=== PATIENT | female | born 1965 | race Caucasian/White ===

== ENCOUNTER 2021-06-27 20:25 | Inpatient (IN) | payer SELFPAY ==
--- OUTSIDE RECORDS SUMMARY | 2021-06-27 20:34 | XMS REPORT | Continuity of Care Document ---
:1965 Author Organization [facility] t Address [address] [place] [address] [address]. [address] [place] [address] Care Team Providers Name Role Phone Pcp, Does Not Have A Primary Care Physician Jaspal PATTEN Attending Clinician Doctor Unassigned, Name Attending Clinician Unavailable JASPAL Attending Clinician Unavailable YOEL Attending Clinician Unavailable Faculty, Surg Attending Clinician Unavailable Javier PTATEN, Aicha Attending Clinician Cynthia GUZMAN Attending Clinician Unavailable Wade PRADO, E Attending Clinician Parth WOOD Attending Clinician Stefan Attending Clinician Huseyin [place] B Attending Clinician Weston PATTEN Attending Clinician Roselyn Estrada MD, B Attending Clinician Aiyana PATTEN Attending Clinician Mack PATTEN, K.H. Attending Clinician Roselyn Estrada MD, B Admitting Clinician Payers Payer Name Policy Type Policy Number Effective Date Expiration Date S ource Advance Directives Directive Decision Effective Termination Comments Source Date Date Healthcare Agents on N/A [facility] Agent Medical RelationshipCommunicationQuentin Branch [facility] Care [phone] (Mobile) [email or web address] [facility] Problems Condition Condition Condition Status Onset Resolution Last Treating Co mments Source Name Details Category Date Date Treatment Clinician Date Diabetic Diabetic Disease Active Unive rs foot ulcer foot ulcer 2-24 it y of associated associated 00:00: [place] with with 00 Medical diabetes diabetes Branch mellitus mellitus due to due to underlying underlying condition, condition, unspecifie unspecifie d d laterality laterality , , unspecifie unspecifie d part of d part of foot, foot, unspecifie unspecifie d ulcer d ulcer stage stage Diabetic Diabetic Disease Active Overview: Un alondra ulcer of ulcer of 2-24 Formatt[place] ity of toe of toe of 00:00: g of this [place] right foot right foot 00 note Me dical associated associated might be Branch with type with 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 from request for surgery [id number] DNR (do DNR (do Disease Active Univers not not 2-24 ity of resus[place] e) e) 00 Medical discussion discussion Br anch Chronic Chronic Disease Active Univers neck pain neck pain 1-30 ity of 00:00: [place] 00 Medical Branch CAD CAD Disease Active Univers (coronary (coronary 1-30 ity of artery artery 00:00: [place] disease) disease) 00 Medica l Branch History of History of Disease Active 2017-04 U nivers CVA CVA 0-07 ity of (cerebrova (cerebrova 00[place]00: [place] scular scular 00 Medical accident) accident) Bran ch Left-sided Left-sided Disease Active 2017-04 U nivers weakness weakness 0-07 ity of 00:00: [place] 00 Medical Branch Gallbladde Gallbladde Disease Active 2017-04 Overview : Univers r polyp r polyp 0-07 Formattin ity o f 00:00: g of this [place] 00 note Medical might be Branch different from the original. multiple History of History of Disease Active U nivers acute acute 9-21 ity of myocardial myocardial 00:[place] infarction infarction 00 Me dical Branch Tobacco Tobacco Disease Active Univers use use 9-21 ity of 00:00: [place] 00 Medical Branch DM DM Disease Active Univers (diabetes (diabetes ity of mellitus) mellitus) [facility] [place] [facility] Allergies, Adverse Reactions, Alerts Allergy Allergy Status Severity Reaction(s) Onset Inactive Treating Comm ents Source Name Type Date Date Clinician NO KNOWN Drug Active Univers ALLERGIE Class ity of S [facility] Social History Social Habit Start Date Stop Date Quantity Comments Source History of tobacco Cigarette Smoker [facility] Exposure to Not sure [facility] SARS-CoV-2 (event) [facility] Alcohol intake 2020-12-13 2020-12-13 Current University 00:00:00 00:00:00 non-drinker of [place] [facility] alcohol Branch (finding) Tobacco use and 2020-11-15 2020-11-15 Never used Universit y of exposure 00:00:00 00:00:00 [facility] Cigarettes smoked 2020-11-15 2020-11-15 Univers ity of current (pack per 00:00:00 00:00:00 [facility] ) - Reported Branch Tobacco Comment 2020-06-22 2020-06-22 quit couple days Uni versity of 00:00:00 00:00:00 ago [facility] Ass[birth year] At [birth year] [facility] Smoking Status Start Date Stop Date Source Current every day 2020-11-15 00:00:00 [facility] smoker [facility] Former smoker 2020-10-24 00:00:00 2020-10-24 [facility] [place] [facility] Medications Ordered Filled Start Stop Current Ordering Indication Dosage Frequency Signature Comments Components Source Medication Medication Date Date Medication? Clinician (SIG) Name Name insulin NPH Yes 30U inject 30 U nivers hum/reg 7-20 Units ity of insulin hm 21:16: [place] the [place] (HUMULIN 27 skin. Medical 70/30 U-100 Branch INSULIN SC) insulin NPH Yes 30U inject 30 U nivers hum/reg 7-20 Units ity of insulin hm 21:16: [place] the [place] (HUMULIN 27 skin. Medical 70/30 U-100 Branch INSULIN SC) insulin NPH Yes 30U inject 30 U nivers hum/reg 7-20 Units ity of insulin hm 21:16: under the [place] (HUMULIN 27 skin. Medical 70/30 U-100 Branch INSULIN SC) insulin NPH 0 Yes 30U inject 30 U nivers hum/reg 7-20 Units ity of insulin hm 21:16: under the [place] (HUMULIN 27 skin. Medical 70/30 U-100 Branch INSULIN SC) insulin NPH 0 Yes 30U inject 30 U nivers hum/reg 7-20 Units ity of insulin hm 21:16: under the [place] (HUMULIN 27 skin. Medical 70/30 U-100 Branch INSULIN SC) insulin NPH 0 Yes 30U inject 30 U nivers hum/reg 7-20 Units ity of insulin hm 16:16: under the [place] (HUMULIN 27 skin. Medical 70/30 U-100 Branch INSULIN SC) insulin NPH 0 Yes 30U inject 30 U nivers hum/reg 7-20 Units ity of insulin hm 16:16: [place] the [place] (HUMULIN 27 skin. Medical 70/30 U-100 Branch INSULIN SC) doxycycline 2020- No [id number] 100mg Take 1 Univers hyclate 100 5-25 06-05 capsule by i ty of mg capsule 00:00: 04:59 mouth [place] 00 :00 every 12 Medical (twelve) Branch hours for 10 days. doxycycline 2020- No [id number] 100mg Take 1 Univers hyclate 100 5-25 06-05 capsule by i ty of mg capsule 00:00: 04:59 mouth [place] 00 :00 every 12 Medical (twelve) Branch hours for 10 days. doxycycline 2020- No [id number] 100mg Take 1 Univers hyclate 100 5-25 06-05 capsule by i ty of mg capsule 00:00: 04:59 mouth [place] 00 :00 every 12 Medical (twelve) Branch hours for 10 days. doxycycline 2020- No [id number] 100mg Take 1 Univers hyclate 100 5-04 05-12 capsule by i ty of mg capsule 00:00: 04:59 mouth [place] 00 :00 every 12 Medical (twelve) Branch hours for 7 days. doxycycline 2020- No [id number] 100mg Take 1 Univers hyclate 100 5-04 05-12 capsule by i ty of mg capsule 00:00: 04:59 mouth [place] 00 :00 every 12 Medical (twelve) Branch hours for 7 days. doxycycline 2020-0 2020- No [id number] 100mg Take 1 Univers hyclate 100 08-30-12 capsule by i ty of mg capsule 00:00: 04:59 mouth [place] 00 :00 every 12 Medical (twelve) Branch hours for 7 days. aspirin 2020-0 Yes 81mg Take 81 mg Univ ers (ADULT LOW 4-20 by mouth ity o f DOSE 14:00: daily. [place] ASPIRIN) 81 43 Medical mg EC Branch tablet aspirin 2020-0 Yes 81mg Take 81 mg Univ ers (ADULT LOW 4-20 by mouth ity o f DOSE 14:00: daily. [place] ASPIRIN) 81 43 Medical mg EC Branch tablet aspirin 2020-0 Yes 81mg Take 81 mg Univ ers (ADULT LOW 4-20 by mouth ity o f DOSE 14:00: daily. [place] ASPIRIN) 81 43 Medical mg EC Branch tablet aspirin 2020-0 Yes 81mg Take 81 mg Univ ers (ADULT LOW 4-20 by mouth ity o f DOSE 14:00: daily. [place] ASPIRIN) 81 43 Medical mg EC Branch tablet aspirin 2020-0 Yes 81mg Take 81 mg Univ ers (ADULT LOW 4-20 by mouth ity o f DOSE 14:00: daily. [place] ASPIRIN) 81 43 Medical mg EC Branch tablet aspirin 2020-0 Yes 81mg Take 81 mg Univ ers (ADULT LOW 4-20 by mouth ity o f DOSE 14:00: daily. [place] ASPIRIN) 81 43 Medical mg EC Branch tablet aspirin 2020-0 Yes 81mg Take 81 mg Univ ers (ADULT LOW 4-20 by mouth ity o f DOSE 14:00: daily. [place] ASPIRIN) 81 43 Medical mg EC Branch tablet aspirin 2020-0 Yes 81mg Take 81 mg Univ ers (ADULT LOW 4-20 by mouth ity o f DOSE 14:00: daily. [place] ASPIRIN) 81 43 Medical mg EC Branch tablet aspirin 2020-0 Yes 81mg Take 81 mg Univ ers (ADULT LOW 4-20 by mouth ity o f DOSE 14:00: daily. [place] ASPIRIN) 81 43 Medical mg EC Branch tablet aspirin 2020-0 Yes 81mg Take 81 mg Univ ers (ADULT LOW 4-20 by mouth ity o f DOSE 14:00: daily. [place] ASPIRIN) 81 43 Medical mg EC Branch tablet aspirin 2021-0 Yes 81mg Take 81 mg Univ ers (ADULT LOW 4-20 by mouth ity o f DOSE 14:00: daily. [place] ASPIRIN) 81 43 Medical mg EC Branch tablet aspirin 2021-0 Yes 81mg Take 81 mg Univ ers (ADULT LOW 4-20 by mouth ity o f DOSE 14:00: daily. [place] ASPIRIN) 81 43 Medical mg EC Branch tablet aspirin 2021-0 Yes 81mg Take 81 mg Univ ers (ADULT LOW 4-20 by mouth ity o f DOSE 14:00: daily. [place] ASPIRIN) 81 43 Medical mg EC Branch tablet aspirin 2021-0 Yes 81mg Take 81 mg Univ ers (ADULT LOW 4-20 by mouth ity o f DOSE 14:00: daily. [place] ASPIRIN) 81 43 Medical mg EC Branch tablet aspirin 2021-0 Yes 81mg Take 81 mg Univ ers (ADULT LOW 4-20 by mouth ity o f DOSE 14:00: daily. [place] ASPIRIN) 81 43 Medical mg EC Branch tablet aspirin 2021-0 Yes 81mg Take 81 mg Univ ers (ADULT LOW 4-20 by mouth ity o f DOSE 14:00: daily. [place] ASPIRIN) 81 43 Medical mg EC Branch tablet aspirin 2020-0 Yes 81mg Take 81 mg Univ ers (ADULT LOW 4-20 by mouth ity o f DOSE 14:00: daily. [place] ASPIRIN) 81 43 Medical mg EC Branch tablet aspirin 1-0 Yes 81mg Take 81 mg Univ ers (ADULT LOW 4-20 by mouth ity o f DOSE 09:00: daily. [place] ASPIRIN) 81 43 Medical mg EC Branch tablet aspirin 1-0 Yes 81mg Take 81 mg Univ ers (ADULT LOW 4-20 by mouth ity o f DOSE 09:00: daily. [place] ASPIRIN) 81 43 Medical mg EC Branch tablet aspirin 2021-0 Yes 81mg Take 81 mg Univ ers (ADULT LOW 3-07 by mouth ity o f DOSE 04:18: daily. [place] ASPIRIN) 81 03 Medical mg EC Branch tablet aspirin 2021-0 Yes 81mg Take 81 mg Univ ers (ADULT LOW 3-07 by mouth ity o f DOSE 04:18: daily. [place] ASPIRIN) 81 03 Medical mg EC Branch tablet aspirin 2021-0 Yes 81mg Take 81 mg Univ ers (ADULT LOW 3-07 by mouth ity o f DOSE 04:18: daily. [place] ASPIRIN) 81 03 Medical mg EC Branch tablet aspirin 2021-0 Yes 81mg Take 81 mg Univ ers (ADULT LOW 3-07 by mouth ity o f DOSE 04:18: daily. [place] ASPIRIN) 81 03 Medical mg EC Branch tablet aspirin 0 Yes 81mg Take 81 mg Univ ers (ADULT LOW 3-07 by mouth ity o f DOSE 04:18: daily. [place] ASPIRIN) 81 03 Medical mg EC Branch tablet aspirin Yes 81mg Take 81 mg Univ ers (ADULT LOW 3-07 by mouth ity o f DOSE 04:18: daily. [place] ASPIRIN) 81 03 Medical mg EC Branch tablet aspirin Yes 81mg Take 81 mg Univ ers (ADULT LOW 3-07 by mouth ity o f DOSE 04:18: daily. [place] ASPIRIN) 81 03 Medical mg EC Branch tablet aspirin Yes 81mg Take 81 mg Univ ers (ADULT LOW 3-07 by mouth ity o f DOSE 04:18: daily. [place] ASPIRIN) 81 03 Medical mg EC Branch tablet aspirin Yes 81mg Take 81 mg Univ ers (ADULT LOW 3-07 by mouth ity o f DOSE 04:18: daily. [place] ASPIRIN) 81 03 Medical mg EC Branch tablet insulin NPH 2020- No inject Uni vers hum/reg 07-02-06 under the ity of insulin hm 22:55: 00:00 skin. 40 [place] (INSULIN 04 :00 units AM Medical 70/30 SC) Branch aspirin Yes 81mg Take 81 mg Univ ers (ADULT LOW 3-06 by mouth ity o f DOSE 15:53: daily. [place] ASPIRIN) 81 54 Medical mg EC Branch tablet insulin Yes 10U 10 Units, Unive rs glargine 07-02 Subcutaneo ity o f (LANTUS 02:00: us, BID, [place] U-100) 00 First dose Medical injection (after Branch 10 Units last modificati on) on Sat07/01/20 at 1999, Until Discontinu ed, Routine insulin 2020- No [id number] 5U inject 5 Univers regular 07-02-05 9109 Units ity of human 100 00:00: 04:59 under the [place] unit/mL 00 :00 skin 2 Medical injection (two) Branch times daily before breakfast and dinner for 90 days. insulin NPH 2020- No [id number] 12U inject 12 Univers 100 unit/mL 07-02- 9109 Units ity of injection 00:00: 04:59 under the [place] 00 :00 skin daily Medical before Branch breakfast for 90 days. insulin NPH 2020- No [id number] 10U inject 10 Univers 100 unit/mL 07-02- 9109 Units ity of injection 00:00: 04:59 under the [place] 00 :00 skin Medical before Branch evening meal for 90 days. insulin 2020- No [id number] 5U inject 5 Univers regular 07-02- 9109 Units ity of human 100 00:00: 04:59 under the [place] unit/mL 00 :00 skin 2 Medical injection (two) Branch times daily before breakfast and dinner for 90 days. insulin NPH 2020- No [id number] 12U inject 12 Univers 100 unit/mL 07-02- 9109 Units ity of injection 00:00: 04:59 under the [place] 00 :00 skin daily Medical before Branch breakfast for 90 days. insulin NPH 2020- No [id number] 10U inject 10 Univers 100 unit/mL 07-02 9109 Units ity of injection 00:00: 04:59 under the [place] 00 :00 skin Medical before Branch evening meal for 90 days. insulin 2020- No [id number] 5U inject 5 Univers regular 07-02- 9109 Units ity of human 100 00:00: 04:59 under the [place] unit/mL 00 :00 skin 2 Medical injection (two) Branch times daily before breakfast and dinner for 90 days. insulin NPH 2020- No [id number] 12U inject 12 Univers 100 unit/mL 07-02- 9109 Units ity of injection 00:00: 04:59 under the [place] 00 :00 skin daily Medical before Branch breakfast for 90 days. insulin NPH 2020- No [id number] 10U inject 10 Univers 100 unit/mL 07-02- 9109 Units ity of injection 00:00: 04:59 under the [place] 00 :00 skin Medical before Branch evening meal for 90 days. insulin 2020- No [id number] 5U inject 5 Univers regular 07-02- 9109 Units ity of human 100 00:00: 04:59 under the [place] unit/mL 00 :00 skin 2 Medical injection (two) Branch times daily before breakfast and dinner for 90 days. insulin NPH 2020- No [id number] 12U inject 12 Univers 100 unit/mL 07-02- 9109 Units ity of injection 00:00: 04:59 under the [place] 00 :00 skin daily Medical before Branch breakfast for 90 days. insulin NPH 2020- No [id number] 10U inject 10 Univers 100 unit/mL 07-02- 9109 Units ity of injection 00:00: 04:59 under the [place] 00 :00 skin Medical before Branch evening meal for 90 days. insulin 2020- No [id number] 5U inject 5 Univers regular 07-02- 9109 Units ity of human 100 00:00: 04:59 under the [place] unit/mL 00 :00 skin 2 Medical injection (two) Branch times daily before breakfast and dinner for 90 days. insulin NPH 2020- No [id number] 12U inject 12 Univers 100 unit/mL 07-02- 9109 Units ity of injection 00:00: 04:59 under the [place] 00 :00 skin daily Medical before Branch breakfast for 90 days. insulin NPH 2020- No [id number] 10U inject 10 Univers 100 unit/mL 07-02 9109 Units ity of injection 00:00: 04:59 under the [place] 00 :00 skin Medical before Branch evening meal for 90 days. insulin 2020- No [id number] 5U inject 5 Univers regular 07-02- 9109 Units ity of human 100 00:00: 04:59 under the [place] unit/mL 00 :00 skin 2 Medical injection (two) Branch times daily before breakfast and dinner for 90 days. insulin NPH 2020- No [id number] 12U inject 12 Univers 100 unit/mL 07-02- 9109 Units ity of injection 00:00: 04:59 under the [place] 00 :00 skin daily Medical before Branch breakfast for 90 days. insulin NPH 2020- No [id number] 10U inject 10 Univers 100 unit/mL 07-02- 9109 Units ity of injection 00:00: 04:59 under the [place] 00 :00 skin Medical before Branch evening meal for 90 days. insulin 2020- No [id number] 5U inject 5 Univers regular 07-02 9109 Units ity of human 100 00:00: 04:59 under the [place] unit/mL 00 :00 skin 2 Medical injection (two) Branch times daily before breakfast and dinner for 90 days. insulin 2020- No [id number] 5U inject 5 Univers regular 07-02- 9109 Units ity of human 100 00:00: 04:59 under the [place] unit/mL 00 :00 skin 2 Medical injection (two) Branch times daily before breakfast and dinner for 90 days. insulin NPH 2020- No [id number] 12U inject 12 Univers 100 unit/mL 07-02 9109 Units ity of injection 00:00: 04:59 under the [place] 00 :00 skin daily Medical before Branch breakfast for 90 days. insulin NPH 2020- No [id number] 10U inject 10 Univers 100 unit/mL 07-02 9109 Units ity of injection 00:00: 04:59 under the [place] 00 :00 skin Medical before Branch evening meal for 90 days. insulin 2020- No [id number] 5U inject 5 Univers regular 07-02 9109 Units ity of human 100 00:00: 04:59 under the [place] unit/mL 00 :00 skin 2 Medical injection (two) Branch times daily before breakfast and dinner for 90 days. insulin NPH 2020- No [id number] 12U inject 12 Univers 100 unit/mL 07-02- 9109 Units ity of injection 00:00: 04:59 under the [place] 00 :00 skin daily Medical before Branch breakfast for 90 days. insulin NPH 2020- No [id number] 10U inject 10 Univers 100 unit/mL 07-02 9109 Units ity of injection 00:00: 04:59 under the [place] 00 :00 skin Medical before Branch evening meal for 90 days. insulin No [id number] 5U inject 5 Univers regular 07-02 9109 Units ity of human 100 00:00: 04:59 under the [place] unit/mL 00 :00 skin 2 Medical injection (two) Branch times daily before breakfast and dinner for 90 days. insulin NPH 2020- No [id number] 12U inject 12 Univers 100 unit/mL 07-02 9109 Units ity of injection 00:00: 04:59 under the [place] 00 :00 skin daily Medical before Branch breakfast for 90 days. insulin NPH 2020- No [id number] 10U inject 10 Univers 100 unit/mL 07-02 9109 Units ity of injection 00:00: 04:59 under the [place] 00 :00 skin Medical before Branch evening meal for 90 days. insulin 2020- No [id number] 5U inject 5 Univers regular 07-02 9109 Units ity of human 100 00:00: 04:59 under the [place] unit/mL 00 :00 skin 2 Medical injection (two) Branch times daily before breakfast and dinner for 90 days. insulin NPH No [id number] 12U inject 12 Univers 100 unit/mL 07-02 9109 Units ity of injection 00:00: 04:59 under the [place] 00 :00 skin daily Medical before Branch breakfast for 90 days. insulin NPH No [id number] 10U inject 10 Univers 100 unit/mL 07-02 9109 Units ity of injection 00:00: 04:59 under the [place] 00 :00 skin Medical before Branch evening meal for 90 days. insulin No [id number] 5U inject 5 Univers regular 07-02 9109 Units ity of human 100 00:00: 04:59 under the [place] unit/mL 00 :00 skin 2 Medical injection (two) Branch times daily before breakfast and dinner for 90 days. insulin NPH No [id number] 12U inject 12 Univers 100 unit/mL 07-02 9109 Units ity of injection 00:00: 04:59 under the [place] 00 :00 skin daily Medical before Branch breakfast for 90 days. insulin NPH No [id number] 10U inject 10 Univers 100 unit/mL 07-02 9109 Units ity of injection 00:00: 04:59 under the [place] 00 :00 skin Medical before Branch evening meal for 90 days. insulin 2020- No [id number] 5U inject 5 Univers regular 07-02 9109 Units ity of human 100 00:00: 04:59 under the [place] unit/mL 00 :00 skin 2 Medical injection (two) Branch times daily before breakfast and dinner for 90 days. insulin NPH 2020- No [id number] 12U inject 12 Univers 100 unit/mL 07-02 9109 Units ity of injection 00:00: 04:59 under the [place] 00 :00 skin daily Medical before Branch breakfast for 90 days. insulin NPH 2020- No [id number] 10U inject 10 Univers 100 unit/mL 07-02 9109 Units ity of injection 00:00: 04:59 under the [place] 00 :00 skin Medical before Branch evening meal for 90 days. insulin 2020- No [id number] 5U inject 5 Univers regular 07-02 9109 Units ity of human 100 00:00: 04:59 under the [place] unit/mL 00 :00 skin 2 Medical injection (two) Branch times daily before breakfast and dinner for 90 days. insulin NPH No [id number] 12U inject 12 Univers 100 unit/mL 07-02 9109 Units ity of injection 00:00: 04:59 under the [place] 00 :00 skin daily Medical before Branch breakfast for 90 days. insulin NPH No [id number] 10U inject 10 Univers 100 unit/mL 07-02 9109 Units ity of injection 00:00: 04:59 under the [place] 00 :00 skin Medical before Branch evening meal for 90 days. insulin 2020- No [id number] 5U inject 5 Univers regular 07-02- 9109 Units ity of human 100 00:00: 04:59 under the [place] unit/mL 00 :00 skin 2 Medical injection (two) Branch times daily before breakfast and dinner for 90 days. insulin NPH 2020- No [id number] 12U inject 12 Univers 100 unit/mL 07-02- 9109 Units ity of injection 00:00: 04:59 under the [place] 00 :00 skin daily Medical before Branch breakfast for 90 days. insulin NPH 2020- No [id number] 10U inject 10 Univers 100 unit/mL 07-02- 9109 Units ity of injection 00:00: 04:59 under the [place] 00 :00 skin Medical before Branch evening meal for 90 days. insulin 2020- No [id number] 5U inject 5 Univers regular 07-02- 9109 Units ity of human 100 00:00: 04:59 under the [place] unit/mL 00 :00 skin 2 Medical injection (two) Branch times daily before breakfast and dinner for 90 days. insulin NPH 2020- No [id number] 12U inject 12 Univers 100 unit/mL 07-02- 9109 Units ity of injection 00:00: 04:59 under the [place] 00 :00 skin daily Medical before Branch breakfast for 90 days. insulin NPH 2020- No [id number] 10U inject 10 Univers 100 unit/mL 07-02- 9109 Units ity of injection 00:00: 04:59 under the [place] 00 :00 skin Medical before Branch evening meal for 90 days. insulin 2020- No [id number] 5U inject 5 Univers regular 07-02- 9109 Units ity of human 100 00:00: 04:59 under the [place] unit/mL 00 :00 skin 2 Medical injection (two) Branch times daily before breakfast and dinner for 90 days. insulin NPH 2020- No [id number] 12U inject 12 Univers 100 unit/mL 07-02- 9109 Units ity of injection 00:00: 04:59 under the [place] 00 :00 skin daily Medical before Branch breakfast for 90 days. insulin NPH 2020- No [id number] 10U inject 10 Univers 100 unit/mL 07-02 9109 Units ity of injection 00:00: 04:59 under the [place] 00 :00 skin Medical before Branch evening meal for 90 days. insulin 2020- No [id number] 5U inject 5 Univers regular 07-02 9109 Units ity of human 100 00:00: 04:59 under the [place] unit/mL 00 :00 skin 2 Medical injection (two) Branch times daily before breakfast and dinner for 90 days. insulin NPH 2020- No [id number] 12U inject 12 Univers 100 unit/mL 07-02 9109 Units ity of injection 00:00: 04:59 under the [place] 00 :00 skin daily Medical before Branch breakfast for 90 days. insulin NPH 2020- No [id number] 10U inject 10 Univers 100 unit/mL 07-02 9109 Units ity of injection 00:00: 04:59 under the [place] 00 :00 skin Medical before Branch evening meal for 90 days. insulin 2020- No [id number] 5U inject 5 Univers regular 07-02 9109 Units ity of human 100 00:00: 04:59 under the [place] unit/mL 00 :00 skin 2 Medical injection (two) Branch times daily before breakfast and dinner for 90 days. insulin NPH 2020- No [id number] 12U inject 12 Univers 100 unit/mL 07-02 9109 Units ity of injection 00:00: 04:59 under the [place] 00 :00 skin daily Medical before Branch breakfast for 90 days. insulin NPH 2020- No [id number] 10U inject 10 Univers 100 unit/mL 07-02 9109 Units ity of injection 00:00: 04:59 under the [place] 00 :00 skin Medical before Branch evening meal for 90 days. sennosides- 2020- No [id number] 1{tbl} Take 1 Univers docusate 07-02 9109 tablet by ity o f sodium 00:00: 04:59 mouth [place] 8.6-50 mg 00 :00 daily for Medic al per tablet 14 days. Branc h Polyethylen 2020- No [id number] 17g Take 1 Univers e Glycol 07-02 9109 Packet by ity o f 3350 17 00:00: 04:59 mouth [place] gram powder 00 :00 daily for Med ical 14 days. Branch cyclobenzap 2020- No [id number] 5mg Take 1 Univers rine 5 mg 07-02 9109 tablet by ity of tablet 00:00: 04:59 mouth 3 [place] 00 :00 (three) Medical times Branch daily for 14 days. gabapentin 2020- No [id number] 100mg Take 1 Univers 100 mg 07-02 9109 capsule by ity of capsule 00:00: 04:59 mouth 3 [place] 00 :00 (three) Medical times Branch daily for 14 days. sennosides- 2020- No [id number] 1{tbl} Take 1 Univers docusate 07-02 9109 tablet by ity o f sodium 00:00: 04:59 mouth [place] 8.6-50 mg 00 :00 daily for Medic al per tablet 14 days. [facility] Polyethylen 2020- No [id number] 17g Take 1 Univers e Glycol 07-02 9109 Packet by ity o f 3350 17 00:00: 04:59 mouth [place] gram powder 00 :00 daily for Med ical 14 days. Branch cyclobenzap 2020- No [id number] 5mg Take 1 Univers rine 5 mg 07-02 9109 tablet by ity of tablet 00:00: 04:59 mouth 3 [place] 00 :00 (three) Medical times Branch daily for 14 days. gabapentin 2020- No [id number] 100mg Take 1 [facility] 100 mg 07-02 9109 capsule by ity of capsule 00:00: 04:59 mouth 3 [place] 00 :00 (three) Medical times Branch daily for 14 days. sennosides- 2020- No [id number] 1{tbl} Take 1 [facility] docusate 07-02 9109 tablet by ity o f sodium 00:00: 04:59 mouth [place] 8.6-50 mg 00 :00 daily for Medic al per tablet 14 days. Branc h Polyethylen 2020- No [id number] 17g Take 1 Univers e Glycol 07-02 9109 Packet by ity o f 3350 17 00:00: 04:59 mouth [place] gram powder 00 :00 daily for Med ical 14 days. Branch cyclobenzap 2020- No [id number] 5mg Take 1 Univers rine 5 mg 07-02 9109 tablet by ity of tablet 00:00: 04:59 mouth 3 [place] 00 :00 (three) Medical times Branch daily for 14 days. gabapentin 2020- No [id number] 100mg Take 1 [facility] 100 mg 07-02 9109 capsule by ity of capsule 00:00: 04:59 mouth 3 [place] 00 :00 (three) Medical times Branch daily for 14 days. sennosides- 2020- No [id number] 1{tbl} Take 1 [facility] docusate 07-02 9109 tablet by ity o f sodium 00:00: 04:59 mouth [place] 8.6-50 mg 00 :00 daily for Medic al per tablet 14 days. [facility] h Polyethylen 2020- No [id number] 17g Take 1 Univers e Glycol 07-02 9109 Packet by ity o f 3350 17 00:00: 04:59 mouth [place] gram powder 00 :00 daily for Med ical 14 days. Branch cyclobenzap 2020- No [id number] 5mg Take 1 Univers rine 5 mg 07-02 9109 tablet by ity of tablet 00:00: 04:59 mouth 3 [place] 00 :00 (three) Medical times Branch daily for 14 days. gabapentin 2020- No [id number] 100mg Take 1 [facility] 100 mg 07-02 9109 capsule by ity of capsule 00:00: 04:59 mouth 3 [place] 00 :00 (three) Medical times Branch daily for 14 days. sennosides- 2020- No [id number] 1{tbl} Take 1 [facility] docusate 07-02 9109 tablet by ity o f sodium 00:00: 04:59 mouth [place] 8.6-50 mg 00 :00 daily for Medic al per tablet 14 days. Branc h Polyethylen 2020- No [id number] 17g Take 1 Univers e Glycol 07-02 9109 Packet by ity o f 3350 17 00:00: 04:59 mouth [place] gram powder 00 :00 daily for Med ical 14 days. Branch cyclobenzap 2020- No [id number] 5mg Take 1 [facility] rine 5 mg 07-02 9109 tablet by ity of tablet 00:00: 04:59 mouth 3 [place] 00 :00 (three) Medical times Branch daily for 14 days. gabapentin 2020- No [id number] 100mg Take 1 [facility] 100 mg 07-02 9109 capsule by ity of capsule 00:00: 04:59 mouth 3 [place] 00 :00 (three) Medical times Branch daily for 14 days. sennosides- 2020- No [id number] 1{tbl} Take 1 [facility] docusate 07-02 9109 tablet by ity o f sodium 00:00: 04:59 mouth [place] 8.6-50 mg 00 :00 daily for Medic al per tablet 14 days. [facility] h Polyethylen 2020- No [id number] 17g Take 1 Univers e Glycol 07-02 9109 Packet by ity o f 3350 17 00:00: 04:59 mouth [place] gram powder 00 :00 daily for Med ical 14 days. Branch cyclobenzap 2020- No [id number] 5mg Take 1 [facility] rine 5 mg 07-02 9109 tablet by ity of tablet 00:00: 04:59 mouth 3 [place] 00 :00 (three) Medical times Branch daily for 14 days. gabapentin 2020- No [id number] 100mg Take 1 [facility] 100 mg 07-02 9109 capsule by ity of capsule 00:00: 04:59 mouth 3 [place] 00 :00 (three) Medical times Branch daily for 14 days. sennosides- 2020- No [id number] 1{tbl} Take 1 [facility] docusate 07-02 9109 tablet by ity o f sodium 00:00: 04:59 mouth [place] 8.6-50 mg 00 :00 daily for Medic al per tablet 14 days. Branc h Polyethylen 2020- No [id number] 17g Take 1 Univers e Glycol 07-02 9109 Packet by ity o f 3350 17 00:00: 04:59 mouth [place] gram powder 00 :00 daily for Med ical 14 days. Branch cyclobenzap 2020- No [id number] 5mg Take 1 Univers rine 5 mg 07-02 9109 tablet by ity of tablet 00:00: 04:59 mouth 3 [place] 00 :00 (three) Medical times Branch daily for 14 days. gabapentin 2020- No [id number] 100mg Take 1 [facility] 100 mg 07-0209 capsule by ity of capsule 00:00: 04:59 mouth 3 [place] 00 :00 (three) Medical times Branch daily for 14 days. HYDROcodone No 4647 1{tbl} Take 1 U nivers -acetaminop 07-02-14 tablet by it y of hen (ShopEx) 00:00: 05:59 mouth [place] 5-325 mg 00 :00 every 6 Medical tablet (six) Branch hours as needed for Pain (scale 7-10) for up to 7 days. Indication s: acute pain HYDROcodone No 4647 1{tbl} Take 1 U nivers -acetaminop 07-02-14 tablet by it y of hen (ShopEx) 00:00: 05:59 mouth [place] 5-325 mg 00 :00 every 6 Medical tablet (six) Branch hours as needed for Pain (scale 7-10) for up to 7 days. Indication s: acute pain HYDROcodone No 4647 1{tbl} Take 1 U nivers -acetaminop 07-02-14 tablet by it y of hen (ShopEx) 00:00: 05:59 mouth [place] 5-325 mg 00 :00 every 6 Medical tablet (six) Branch hours as needed for Pain (scale 7-10) for up to 7 days. Indication s: acute pain HYDROcodone 2020- No 4647 1{tbl} Take 1 U nivers -acetaminop 07-02-14 tablet by it y of hen (NORCO) 00:00: 05:59 mouth [place] 5-325 mg 00 :00 every 6 Medical tablet (six) Branch hours as needed for Pain (scale 7-10) for up to 7 days. Indication s: acute pain HYDROcodone 2020- No 4647 1{tbl} Take 1 U nivers -acetaminop 07-02-14 tablet by it y of hen (NORCO) 00:00: 05:59 mouth [place] 5-325 mg 00 :00 every 6 Medical tablet (six) Branch hours as needed for Pain (scale 7-10) for up to 7 days. Indication s: acute pain insulin NPH 2020- No [id number] 12U inject 12 Univers and regular 07-02 9109 Units ity of human 70-30 00:00: 00:00 under the [place] 100 unit/mL 00 :00 skin daily Me dical (70-30) before Branch injection breakfast for 90 days. insulin NPH 2020- No [id number] 10U inject 10 Univers and regular 07-02 9109 Units ity of human 70-30 00:00: 00:00 under the [place] 100 unit/mL 00 :00 skin Medical (70-30) before Branch injection evening meal for 90 days. insulin Yes 5U 5 Units, Univer s lispro 3-05 Subcutaneo ity of (human) 23:00: us, TID [place] (HumaLOG 00 MEALS, Medical U-100) First dose Branch injection 5 (after Units last modificati on) on 07/01/20 at 1700, Until Discontinu ed, Routine sennosides- Yes 1{tbl} 1 tablet, Univers docusate 3-05 Oral, ity of sodium 15:00: DAILY, [place] (SENOKOT-S) 00 First dose Me dical 8.6-50 mg on Sat Branch per tablet 07/01/20 at 1 tablet 0900, Until Discontinu ed, Routine Sliding Yes Subcutaneo Univ ers Scale 3-05 us, TID ity of Insulin - 03:00: MEALS+HS, [place] lispro 00 First dose Medical (humaLOG) + (after Branch Fsbg last Testing modificati on) on [place] 06/30/20 at 2100, Until Discontinu ed, Routine insulin 2020- No 12U 12 Units, [facility] ers glargine 07-01- Subcutaneo ity of (LANTUS 02:00: 19:59 us, BID, [place] U-100) 00 :45 First dose Medical injection (after Branch 12 Units last modificati on) on [place] 06/30/20 at 2000, Until Discontinu ed, Routine sennosides- 2020- No 1{tbl} 1 tablet, Univers docusate 06-30 03-04 Oral, ity of sodium 23:45: 23:58 ONCE, 1 [place] (SENOKOT-S) 00 :00 dose, [facility] Med ical 8.6-50 mg 06/30/20 at Branc h per tablet 1745, 1 tablet Routine Polyethylen Yes 17g 17 g, [facility] rs e Glycol 06-30 Oral, ity of 3350 22:45: DAILY, [place] (MIRALAX) 00 First dose Medi leyla powder 17 g on [place] Branch 06/30/20 at 1645, Until Discontinu ed, Routine vancomycin 2020- No 500mg 500 mg, IV Univers (VANCOCIN) 06-30 03-06 Piggyback, it y of 500 mg in 17:30: 15:26 Q12H ABX, [place] NaCl 0.9% 00 :21 First dose Medi leyla (NS) 100 mL (after Branch piggyback last modificati on) on [place] 06/30/20 at 1130, Until Discontinu ed, 100 mL
Reas on for Anti-Infec tive: Documented Infection< br>Documen amando Infection Site: Skin / Soft Tissue
Duration of Therapy: 7 days lactated Yes 1000mL at 50 Univer s ringers IV 3-04 mL/hr, ity of infusion 16:45: 1,000 mL, [place] 1,000 mL 00 IV Medical Infusion, Branch CONTINUOUS , Starting Sat06/30/20 at 1045, Until Discontinu ed, Routine sodium Yes 1{enema 1 Enema, [facility] ers phosphates 04 } Rectal, ity of (READY-TO-U 15:37: PRN, [place] SE ENEMA) 15 Starting Medica l 19-7 Sat06/30/20 Branch gram/118 mL at 0937, enema 1 Until Enema Discontinu ed, Routine, Constipati on, Constipati on unresolved by oral medication s Sliding 2020- No Subcutaneo Uni vers Scale 3-04 03-05 us, Q4H, ity of Insulin - 06:00: 00:41 First dose [place] lispro 00 :26 (after Medical (humaLOG) + last Branch Fsbg modificati Testing on) on Sat06/30/20 at 0000, Until Discontinu ed, Routine Sliding 2020- No Subcutaneo Uni vers Scale 3-03 03-04 us, TID ity of Insulin - 23:00: 05:24 MEALS+HS, [place] lispro 00 :16 First dose Medical (humaLOG) + (after Branch Fsbg last Testing modificati on) on Sat06/29/20 at 1700, Until Discontinu ed, Routine lanolin Yes Topical, [facility] s alcohol-mo- 3-03 DAILY, ity of w.pet-ceres 15:00: First dose [place] (EUCERIN) 00 on Sat Medical cream 06/29/20 at Branch 0900, Until Discontinu ed, Routine hydrocortis Yes Topical Uni vers one 1 % 06-29 (Apply To ity of cream 05:43: Affected [place] 57 Areas), Medical PRN, Branch Starting Sat06/28/20 at 2343, Until Discontinu ed, Routine, Itching gabapentin Yes 100mg 100 mg, Uni vers (NEURONTIN) 303 Oral, TID, it y of capsule 100 04:00: First dose [place] mg 00 on Sat Medical 06/28/20 at Branch 2200, Until Discontinu ed, Routine HYDROcodone Yes 1{tbl} 1 tablet, Univers -acetaminop 303 Oral, ity of hen (NORCO) 02:03: Q6HPRN, [place] 10-325 mg 15 Starting Medica l tablet 1 Sat06/28/20 Branc h tablet at 2002, Until Discontinu ed, Routine, Pain (scale 4-6) morpHINE 0 Yes 2mg 2 mg, Slow Uni vers injection 2 3-03 IV Push, ity of mg 02:02: Q3HPRN, [place] 59 Starting Medical Sat06/28/20 Branch at 2001, Until Discontinu ed, Routine, Pain (scale 7-10) Sliding 2020- No Subcutaneo Uni vers Scale 3-03 03-03 us, Q3H, ity of Insulin - 02:00: 21:44 First dose [place] lispro 00 :35 (after Medical (humaLOG) + last Branch Fsbg modificati Testing on) on Sat06/28/20 at 1999, Until Discontinu ed, Routine cyclobenzap Yes 5mg 5 mg, Unive rs rine 3-03 Oral, TID, ity of (FLEXERIL) 01:30: First dose [place] tablet 5 mg 00 on Sat [facility] l 06/28/20 at Branch 1929, Until Discontinu ed, Routine acetaminoph 0 Yes 650mg 650 mg, Un alondra en 3-03 Oral, Q6H, ity of (TYLENOL) 01:30: First dose [place] tablet 650 00 (after Medical mg last Branch modificati on) on Sat06/28/20 at 1929, Until Discontinu ed, Routine Sliding 2020- No Subcutaneo Uni vers Scale 3-02 03-03 us, Q4H, ity of Insulin - 02:00: 00:44 First dose [place] lispro 00 :30 (after Medical (humaLOG) + last Branch Fsbg modificati Testing on) on Sat06/27/20 at 1999, Until Discontinu ed, Routine insulin 2020- No 14U 14 Units, Univ ers glargine 3 03-05 Subcutaneo ity of (LANTUS 02:00: 00:41 us, BID, [place] U-100) 00 :26 First dose Medical injection (after Branch 14 Units last modificati on) on Sat06/26/20 at 2000, Until Discontinu ed, Routine insulin No 10U 10 Units, Univ ers lispro 06-26 0305 Subcutaneo ity of (human) 23:00: 00:41 us, TID [place] (HumaLOG 00 :26 MEALS, Medical U-100) First dose Branch injection (after 10 Units last modificati on) on [place] 06/26/20 at 1700, Until Discontinu ed, Routine metroNIDAZO 2020- No 500mg 500 mg, U [place] LE (FLAGYL) 06-2606 Oral, Q8H, i ty of tablet 500 20:00: 15:26 First dose [place] mg 00 :21 on [facility] 06/26/20 at Branch 1400, Until Discontinu ed, Routine
Reason for Anti-Infec tive: Documented Infection< br>Documen amando Infection Site: Skin / Soft Tissue<br& gt;Duratio n of Therapy: 7 days cefTRIAXone No 2000mg 2,000 mg, Univers (ROCEPHIN) 06-2606 IV ity of 2,000 mg in 18:15: 15:26 Mineral, [place] NaCl 0.9% 00 :21 Q24H ABX, Medic al (NS) 100 mL First dose Br anch MINI-BAG on [place] 06/26/20 at 1215, Until Discontinu ed, 100 mL
Reas on for Anti-Infec tive: Documented Infection< br>Documen amando Infection Site: Skin / Soft Tissue
Duration of Therapy: 7 days Sliding No Subcutaneo Uni vers Scale 06-2602 us, Q3H, ity of Insulin - 18:15: 01:28 First dose [place] lispro 00 :11 (after Medical (humaLOG) + last Branch Fsbg modificati Testing on) on [place] 06/26/20 at 1215, Until Discontinu ed, Routine vancomycin 2020- No 1000mg 1,000 mg, Univers (VANCOCIN) 06-2604 IV ity of 1,000 mg in 17:30: 08:04 Mineral, [place] NaCl 0.9% 00 :41 Q12H ABX, Medic al (NS) 250 mL First dose Br anch VIAL-MATE on Sun IV 06/26/20 at piggyback 1130, Until Discontinu ed, 250 mL
Reas on for Anti-Infec tive: Documented Infection< br>Documen amando Infection Site: Skin / Soft Tissue
Duration of Therapy: 7 days Sliding No Subcutaneo Uni vers Scale 06-26 us, Q4H, ity of Insulin - 02:00: 18:04 First dose [place] lispro 00 :31 (after Medical (humaLOG) + last Branch Fsbg modificati Testing on) on 06/25/20 at 2000, Until Discontinu ed, Routine insulin 2020- No 11U 11 Units, Univ ers glargine 06-26 Subcutaneo ity of (LANTUS 02:00: 18:13 us, BID, [place] U-100) 00 :37 First dose Medical injection on Sat Branch 11 Units 06/25/20 at 2000, Until Discontinu ed, Routine insulin 2020- No 7U 7 Units, Unive rs lispro 06-25 Subcutaneo ity of (human) 18:00: 18:13 us, TID [place] (HumaLOG 00 :37 MEALS, Medical U-100) First dose Branch injection 7 on Sat Units 06/25/20 at 1200, Until Discontinu ed, Routine Sliding No Subcutaneo Uni vers Scale 06-25 us, Q3H, ity of Insulin - 17:00: 01:38 First dose [place] lispro 00 :36 on [facility] Medical (humaLOG) + 06/25/20 at Br anch Fsbg 1100, Testing Until Discontinu ed, Routine insulin NPH 2020- No 20U 20 Units, Univers and regular 06-24 Subcutaneo i ty of human 70-30 23:00: 16:40 , [place] (HUMULIN 00 :27 QAM+PM, Medical 70-30 U-100 First dose Br anch INSULIN) (after 100 unit/mL last (70-30) modificati injection on) on Fri 20 Units 06/24/20 at 1700, Until Discontinu ed, Routine linezolid 2020- No 600mg 600 mg, IV Univers in dextrose 06-24 Infusion, it y of 5% (ZYVOX) 00:45: 17:15 Q12H ABX, [place] 600 mg/300 00 :14 First dose Med ical mL iv on [place] Branch infusion 06/23/20 at 600 mg 1845, Until Discontinu ed, 300 mL
R arthur for Anti-Infec tive: Documented Infection< br>Documen amando Infection Site: Skin / Soft Tissue
Duration of Therapy: 7 days
Re stricted use approved by: ADC PROVIDER meropenem 2020- No 500mg 500 mg, IV Univers (MERREM) 06-24 Piggyback, ity of 500 mg in 00:45: 17:15 Administer [place] NaCl 0.9% 00 :14 over 60 Medical (NS) 100 mL Minutes, Bran ch MINI-BAG Q8H ABX, First dose on [place] 06/23/20 at 1845, Until Discontinu ed, MARIEL
Re stricted use approved by: ADC PROVIDER<b r>Reason for Anti-Infec tive: Documented Infection< br>Documen amando Infection Site: Skin / Soft Tissue
Duration of Therapy: 7 days sulfur No 5mL 5 mL, Univers hexafluorid 06-23 Intravenou i ty of e microsphr 23:15: 21:41 s, ONCE, 1 [place] (LUMASON) 00 :00 dose, [place] Medic al injection 5 06/23/20 at Br anch mL 1715, Routine
clergy member approving Restricted medication : JAYRO DIALLO enoxaparin Yes 40mg 40 mg, Unive rs (LOVENOX) 2-25 Subcutaneo ity of injection 23:00: us, DAILY, [place] 40 mg 00 First dose Medical on [place] Branch 06/23/20 at 1700, Until Discontinu ed, Routine aspirin EC Yes 81mg 81 mg, Unive rs tablet 81 2-25 Oral, ity of mg 15:00: DAILY, [place] 00 First dose Medical on [place] Branch 06/23/20 at 0900, Until Discontinu ed, Routine clopidogreL Yes 75mg 75 mg, [facility] ers (PLAVIX) 06-23 Oral, ity of tablet 75 15:00: DAILY, [place] mg 00 First dose Medical on [facility] Branch 06/23/20 at 0900, Until Discontinu ed, Routine insulin NPH 2020- No 20U 20 Units, Univers and regular 06-23 Subcutaneo i ty of human 70-30 15:00: 21:59 us, QAM, [place] (HUMULIN 00 :59 First dose Medic al 70-30 U-100 on [facility] INSULIN) 06/23/20 at 100 unit/mL 0900, (70-30) Until injection Discontinu 20 Units ed, Routine Sliding Subcutaneo Uni vers Scale 06-23 us, AC, ity of Insulin-Reg 13:30: 16:40 First dose [place] ular + Fsbg 00 :27 on [facility] Medica l Testing 06/23/20 at Branch 0730, Until Discontinu ed, Routine piperacilli No 3.375g 3.375 g, Univers n-tazobacta 06-23 IV ity of m (ZOSYN) 10:00: 23:40 Piggyback, [place] 3.375 g in 00 :24 Q6H ABX, Medic al NaCl 0.9% First dose Bran ch (NS) 100 mL (after MINI-BAG last reorder) on [facility] 06/23/20 at 0400, Until Discontinu ed, 100 mL
Reas on for Anti-Infec tive: Empiric Therapy for Suspected Infection< br>Empiric Therapy Site: Skin / Soft tissue
Duration of therapy: 72 hours aspirin Yes 81mg Take 81 mg [facility] ers (ADULT LOW 2-25 by mouth ity o f DOSE 08:29: daily. [place] ASPIRIN) 81 11 Medical mg [facility] tablet ondansetron Yes 4mg 4 mg, Slow Univers (ZOFRAN 2-25 IV Push, ity of (PF)) 08:28: Q6HPRN, [place] injection 4 43 Starting Medi leyla mg [facility] 06/23/20 at 0228, Until Discontinu ed, Routine, Nausea and Vomiting (N/V) HYDROcodone 2020- No 1{tbl} 1 tablet, Univers -acetaminop 06-2303 Oral, ity of hen (NORCO) 08:28: 02:03 Q6HPRN, [place] 10-325 mg 41 :29 Starting Medica l tablet 1 [place] Branch tablet 06/23/20 at 227, Until Sat06/28/20 at 2002, Routine, Pain (scale 7-10) acetaminoph 2020- No 650mg 650 mg, U nivers en 06-2303 Oral, ity of (TYLENOL) 08:28: 01:26 Q6HPRN, [place] tablet 650 36 :40 Starting Medic al mg [place] Branch 06/23/20 at 227, Until Sat06/28/20 at 1926, Routine, Pain (scale 1-3) glucagon Yes 1mg 1 mg, Univers (GLUCAGEN 06-23 Intramuscu ity of DIAGNOSTIC 08:25: lar, PRN, [place] KIT) 46 Starting Medical injection 1 [place] Branch mg 06/23/20 at 022, Until Discontinu ed, MARIEL, Blood Glucose < or = 70 mg/dL and patient is unable to swallow or has mental changes. dextrose 50 Yes 25mL 25 mL, Univ ers % in water 2 Slow IV ity of (D50W) 08:25: Push, PRN, [place] injection 46 Starting Medica l 25 mL [place] Branch 06/23/20 at 224, Until Discontinu ed, MARIEL, Blood Glucose < or = 70 mg/dL and patient is unable to swallow or has mental status changes. insulin NPH Yes inject Univ ers hum/reg 2-25 under the ity of insulin hm 05:39: skin. 40 [place] as (INSULIN 47 units AM Medical 70/30 SC) Branch piperacilli 2020- No 3.375g 3.375 g, Univers n-tazobacta 06-23 IV ity of m (ZOSYN) 04:45: 04:33 Piggyback, [place] 3.375 g in 00 :00 ONCE, 1 Medica l NaCl 0.9% dose, Sat Branc h (NS) 100 mL 06/22/20 at MINI-BAG 2245, 100 mL
Reas on for Anti-Infec tive: Empiric Therapy for Suspected Infection< br>Empiric Therapy Site: Skin / Soft tissue
Duration of therapy: 72 hours vancomycin 2020- No 15mg/kg 1,000 mg Univers (VANCOCIN) 25 02-25 (rounded ity of 1,000 mg in 04:45: 05:41 from [place] NaCl 0.9% 00 :00 1,054.5 mg Medi leyla (NS) 250 mL = 15 mg/kg Br anch VIAL-MATE ?70.3 kg), IV IV piggyback Piggyback, ONCE, 1 dose, 06/22/20 at 2245, 250 mL
Reas on for Anti-Infec tive: Empiric Therapy for Suspected Infection< br>Empiric Therapy Site: Skin / Soft tissue
Duration of therapy: 72 hours NaCl 0.9% 2020- No 1000mL at 999 Uni vers (NS) bolus 06-23-25 mL/hr, ity of infusion 03:45: 04:55 1,000 mL, [place] 1,000 mL 00 :00 IV Medical Infusion, Branch ONCE, 1 dose, 06/22/20 at 2145, MARIEL clopidogreL 2020- Yes [id number] 75mg Take 1 Univers (PLAVIX) 75 2-30 tablet by ity of mg tablet 00:00: mouth [place] 00 daily. Medical Branch clopidogreL 2020- Yes [id number] 75mg Take 1 Univers (PLAVIX) 75 2-30 tablet by ity of mg tablet 00:00: mouth [place] 00 daily. [facility] Branch clopidogreL 2020- Yes [id number] 75mg Take 1 Univers (PLAVIX) 75 2-30 tablet by ity of mg tablet 00:00: mouth [place] 00 daily. [facility] Branch clopidogreL 2020- Yes [id number] 75mg Take 1 Univers (PLAVIX) 75 2-30 tablet by ity of mg tablet 00:00: mouth [place] 00 daily. [facility] Branch clopidogreL 2020- Yes [id number] 75mg Take 1 Univers (PLAVIX) 75 2-30 tablet by ity of mg tablet 00:00: mouth [place] 00 daily. [facility] Branch clopidogreL 2020-1 Yes [id number] 75mg Take 1 Univers (PLAVIX) 75 2-30 tablet by ity of mg tablet 00:00: mouth [place] 00 daily. Medical Branch clopidogreL 2020-1 Yes [id number] 75mg Take 1 Univers (PLAVIX) 75 2-30 tablet by ity of mg tablet 00:00: mouth [place] 00 daily. [facility] Branch clopidogreL 2020-1 Yes [id number] 75mg Take 1 Univers (PLAVIX) 75 2-30 tablet by ity of mg tablet 00:00: mouth [place] 00 daily. [facility] Branch clopidogreL 2020-1 Yes [id number] 75mg Take 1 Univers (PLAVIX) 75 2-30 tablet by ity of mg tablet 00:00: mouth [place] 00 daily. [facility] Branch clopidogreL 2020-1 Yes [id number] 75mg Take 1 Univers (PLAVIX) 75 2-30 tablet by ity of mg tablet 00:00: mouth [place] 00 daily. [facility] Branch clopidogreL 2020-1 Yes [id number] 75mg Take 1 Univers (PLAVIX) 75 2-30 tablet by ity of mg tablet 00:00: mouth [place] 00 daily. [facility] Branch clopidogreL 2020-1 Yes [id number] 75mg Take 1 Univers (PLAVIX) 75 2-30 tablet by ity of mg tablet 00:00: mouth [place] 00 daily. [facility] Branch clopidogreL 2020-1 Yes [id number] 75mg Take 1 Univers (PLAVIX) 75 2-30 tablet by ity of mg tablet 00:00: mouth [place] 00 daily. [facility] Branch clopidogreL 2020-1 Yes [id number] 75mg Take 1 Univers (PLAVIX) 75 2-30 tablet by ity of mg tablet 00:00: mouth [place] 00 daily. [facility] Branch clopidogreL 2020-1 Yes [id number] 75mg Take 1 Univers (PLAVIX) 75 2-30 tablet by ity of mg tablet 00:00: mouth [place] 00 daily. [facility] Branch clopidogreL 2020-1 Yes [id number] 75mg Take 1 Univers (PLAVIX) 75 2-30 tablet by ity of mg tablet 00:00: mouth [place] 00 daily. [facility] Branch clopidogreL 2020-1 Yes [id number] 75mg Take 1 Univers (PLAVIX) 75 2-30 tablet by ity of mg tablet 00:00: mouth [place] 00 daily. [facility] Branch clopidogreL 2020-1 Yes [id number] 75mg Take 1 Univers (PLAVIX) 75 2-30 tablet by ity of mg tablet 00:00: mouth [place] 00 daily. Medical Branch clopidogreL 2020-1 Yes [id number] 75mg Take 1 Univers (PLAVIX) 75 2-30 tablet by ity of mg tablet 00:00: mouth [place] 00 daily. Medical Branch clopidogreL 2020-1 Yes [id number] 75mg Take 1 Univers (PLAVIX) 75 2-30 tablet by ity of mg tablet 00:00: mouth [place] 00 daily. Medical Branch clopidogreL 2020-1 Yes [id number] 75mg Take 1 Univers (PLAVIX) 75 2-30 tablet by ity of mg tablet 00:00: mouth [place] 00 daily. [facility] Branch clopidogreL 2020-1 Yes [id number] 75mg Take 1 Univers (PLAVIX) 75 2-30 tablet by ity of mg tablet 00:00: mouth [place] 00 daily. [facility] Branch clopidogreL 2020- Yes [id number] 75mg Take 1 Univers (PLAVIX) 75 2-30 tablet by ity of mg tablet 00:00: mouth [place] 00 daily. [facility] Branch clopidogreL 2020-1 Yes [id number] 75mg Take 1 Univers (PLAVIX) 75 2-30 tablet by ity of mg tablet 00:00: mouth [place] 00 daily. [facility] Branch clopidogreL 2020- Yes [id number] 75mg Take 1 Univers (PLAVIX) 75 2-30 tablet by ity of mg tablet 00:00: mouth [place] 00 daily. Medical Branch clopidogreL 2020-1 Yes [id number] 75mg Take 1 Univers (PLAVIX) 75 2-30 tablet by ity of mg tablet 00:00: mouth [place] 00 daily. Medical Branch clopidogreL 2020-1 Yes [id number] 75mg Take 1 Univers (PLAVIX) 75 2-30 tablet by ity of mg tablet 00:00: mouth [place] 00 daily. Medical Branch clopidogreL 2020-1 Yes [id number] 75mg Take 1 Univers (PLAVIX) 75 2-30 tablet by ity of mg tablet 00:00: mouth [place] 00 daily. [facility] Branch clopidogreL 2020-1 Yes [id number] 75mg Take 1 Univers (PLAVIX) 75 2-30 tablet by ity of mg tablet 00:00: mouth [place] 00 daily. [facility] Branch clopidogreL 2020-1 Yes [id number] 75mg Take 1 Univers (PLAVIX) 75 2-30 tablet by ity of mg tablet 00:00: mouth [place] 00 daily. [facility] Branch clopidogreL 2020-1 Yes [id number] 75mg Take 1 Univers (PLAVIX) 75 2-30 tablet by ity of mg tablet 00:00: mouth [place] 00 daily. Medical Branch clopidogreL 2019-04 Yes [id number] 75mg Take 1 Univers (PLAVIX) 75 2-30 tablet by ity of mg tablet 00:00: mouth [place] 00 daily. [facility] clopidogreL 2019-04 Yes [id number] 75mg Take 1 Univers (PLAVIX) 75 2-30 tablet by ity of mg tablet 00:00: mouth [place] 00 daily. Medical Branch clopidogreL 2019-04 Yes [id number] 75mg Take 1 Univers (PLAVIX) 75 0-15 tablet by ity of mg tablet 00:00: mouth [place] 00 daily. [facility] clopidogreL 2019-04 2020- No [id number] 75mg Take 1 Univers (PLAVIX) 75 0-15 12-30 tablet by it y of mg tablet 00:00: 00:00 mouth [place] 00 :00 daily. [facility] clopidogrel 2018-04- No [id number] 75mg Take 1 Univers (PLAVIX) 75 0-29 10-15 tablet by it y of mg tablet 00:00: 00:00 mouth [place] 00 :00 daily. Medical Branch aspirin Yes 81mg Take 81 mg Univ ers (ADULT LOW 7-18 by mouth ity o f DOSE 19:40: daily. [place] ASPIRIN) 81 31 Medical mg EC Branch tablet insulin NPH 0 Yes inject Univ ers hum/reg 7-18 under the ity of insulin hm 19:40: skin. 40 [place] as (INSULIN 31 units AM Medical 70/30 SC) Branch aspirin Yes 81mg Take 81 mg Univ ers (ADULT LOW 7-18 by mouth ity o f DOSE 19:40: daily. [place] ASPIRIN) 81 31 Medical mg EC Branch tablet insulin NPH Yes inject Univ ers hum/reg 7-18 under the ity of insulin hm 19:40: skin. 40 [place] as (INSULIN 31 units AM Medical 70/30 [place]) Branch aspirin Yes 81mg Take 81 mg Univ ers (ADULT LOW 7-18 by mouth ity o f DOSE 19:40: daily. [place] ASPIRIN) 81 31 Medical mg EC Branch tablet insulin NPH Yes inject Univ ers hum/reg 7-18 under the ity of insulin hm 19:40: skin. 40 [place] as (INSULIN 31 units AM Medical 70/30 SC) Branch aspirin Yes 81mg Take 81 mg Univ ers (ADULT LOW 7-18 by mouth ity o f DOSE 19:40: daily. [place] ASPIRIN) 81 31 Medical mg EC Branch tablet insulin NPH Yes inject Univ ers hum/reg 7-18 under the ity of insulin hm 19:40: skin. 40 [place] as (INSULIN 31 units AM Medical 70/30 SC) Branch aspirin Yes 81mg Take 81 mg Univ ers (ADULT LOW 7-18 by mouth ity o f DOSE 19:40: daily. [place] ASPIRIN) 81 31 Medical mg EC Branch tablet insulin NPH Yes inject Univ ers hum/reg 7-18 under the ity of insulin hm 19:40: skin. 40 [place] as (INSULIN 31 units AM Medical 70/30 SC) Branch clopidogrel Yes [id number] 75mg Take 1 Univers (PLAVIX) 75 718 07 tablet by ity of mg tablet 00:00: mouth [place] 00 daily. Medical Branch metoprolol 2019- No [id number] 25mg Take 1 Univers succinate 7-18 08-18 07 tablet by ity of XL 25 mg 24 00:00: 04:59 mouth [place] hr tablet 00 :00 (two) Medical times [place] daily for 30 days. rosuvastati 2019- No [id number] 10mg Take 1 Univers n 10 mg 18 08-18 07 tablet by ity of tablet 00:00: 04:59 mouth at [place] 00 :00 bedtime Medical for 30 Branch days. Immunizations Ordered Filled Immunization Date Status Comments [facility] e Immunization Name Name SARS-COV-2 COVID-19 2020-09-05 Completed Unive rsity of PFIZER VACCINE 00:00:00 [facility] SARS-COV-2 COVID-19 2020-09-05 Completed Unive rsity of PFIZER VACCINE 00:00:00 [facility] SARS-COV-2 COVID-19 2020-09-05 Completed Unive rsity of PFIZER VACCINE 00:00:00 [facility] SARS-COV-2 COVID-19 2020-09-05 Completed Unive rsity of PFIZER VACCINE 00:00:00 [facility] SARS-COV-2 COVID-19 2020-09-05 Completed Unive rsity of PFIZER VACCINE 00:00:00 [place] [facility] Branch SARS-COV-2 COVID-19 2020-09-05 Completed Unive rsity of PFIZER VACCINE 00:00:00 [place] [facility] SARS-COV-2 COVID-19 2020-09-05 Completed Unive rsity of PFIZER VACCINE 00:00:00 [place] [facility] SARS-COV-2 COVID-19 2020-09-05 Completed Unive rsity of PFIZER VACCINE 00:00:00 [place] [facility] SARS-COV-2 COVID-19 2020-09-05 Completed Unive rsity of PFIZER VACCINE 00:00:00 [place] [facility] SARS-COV-2 COVID-19 2020-09-05 Completed Unive rsity of PFIZER VACCINE 00:00:00 [place] [facility] SARS-COV-2 COVID-19 2020-09-05 Completed Unive rsity of PFIZER VACCINE 00:00:00 [place] [facility] SARS-COV-2 COVID-19 2020-09-05 Completed Unive rsity of PFIZER VACCINE 00:00:00 [place] [facility] SARS-COV-2 COVID-19 2020-09-05 Completed Unive rsity of PFIZER VACCINE 00:00:00 [place] [facility] SARS-COV-2 COVID-19 2020-09-05 Completed Unive rsity of PFIZER VACCINE 00:00:00 [place] [facility] SARS-COV-2 COVID-19 2020-08-16 Completed Unive rsity of PFIZER VACCINE 00:00:00 [place] [facility] SARS-COV-2 COVID-19 2020-08-16 Completed Unive rsity of PFIZER VACCINE 00:00:00 [place] [facility] SARS-COV-2 COVID-19 2020-08-16 Completed Unive rsity of PFIZER VACCINE 00:00:00 [place] [facility] SARS-COV-2 COVID-19 2020-08-16 Completed Unive rsity of PFIZER VACCINE 00:00:00 [place] [facility] SARS-COV-2 COVID-19 2020-08-16 Completed Unive rsity of PFIZER VACCINE 00:00:00 [facility] SARS-COV-2 COVID-19 2020-08-16 Completed Unive rsity of PFIZER VACCINE 00:00:00 [place] [facility] SARS-COV-2 COVID-19 2020-08-16 Completed Unive rsity of PFIZER VACCINE 00:00:00 [facility] SARS-COV-2 COVID-19 2020-08-16 Completed Unive rsity of PFIZER VACCINE 00:00:00 [facility] SARS-COV-2 COVID-19 2020-08-16 Completed Unive rsity of PFIZER VACCINE 00:00:00 [facility] SARS-COV-2 COVID-19 2020-08-16 Completed Unive rsity of PFIZER VACCINE 00:00:00 [place] [facility] SARS-COV-2 COVID-19 2020-08-16 Completed Unive rsity of PFIZER VACCINE 00:00:00 [place] [facility] SARS-COV-2 COVID-19 2020-08-16 Completed Unive rsity of PFIZER VACCINE 00:00:00 [facility] SARS-COV-2 COVID-19 2020-08-16 Completed Unive rsity of PFIZER VACCINE 00:00:00 [facility] SARS-COV-2 COVID-19 2020-08-16 Completed Unive rsity of PFIZER VACCINE 00:00:00 [facility] SARS-COV-2 COVID-19 2020-08-16 Completed Unive rsity of PFIZER VACCINE 00:00:00 [facility] SARS-COV-2 COVID-19 2020-08-16 Completed Unive rsity of PFIZER VACCINE 00:00:00 [facility] SARS-COV-2 COVID-19 2020-08-16 Completed Unive rsity of PFIZER VACCINE 00:00:00 [facility] SARS-COV-2 COVID-19 2020-08-16 Completed Unive rsity of PFIZER VACCINE 00:00:00 [facility] SARS-COV-2 COVID-19 2020-08-16 Completed Unive rsity of PFIZER VACCINE 00:00:00 [facility] Vital Signs Vital Name Observation Time Observation Value Comments Source Systolic blood 2020-12-13 21:39:00 116 mm[Hg] Univer sity of pressure [facility] Diastolic blood 2020-12-13 21:39:00 64 mm[Hg] Unive rsity of pressure [facility] Heart rate 2020-12-13 21:39:00 86 /min [facility] Body temperature 2020-12-13 21:39:00 36.89 Luz Maria Univ ersity of [place] [facility] Body height 2020-12-13 21:39:00 167.6 cm [facility] [place] [facility] Body weight 2020-12-13 21:39:00 74.844 kg [facility] [place] [facility] BMI 2020-12-13 21:39:00 26.63 kg/m2 [facility] [place] [facility] Systolic blood 2020-11-15 21:16:00 127 mm[Hg] Univer sity of pressure [place] [facility] Diastolic blood 2020-11-15 21:16:00 70 mm[Hg] Unive rsity of pressure [place] [facility] Heart rate 2020-11-15 21:16:00 82 /min [facility] [place] [facility] Body temperature 2020-11-15 21:16:00 36.72 Luz Maria [facility] [place] [facility] Respiratory rate 2020-11-15 21:16:00 16 /min Univ [facility] [place] [facility] Body height 2020-11-15 21:16:00 167.6 cm [facility] [place] [facility] Body weight 2020-11-15 21:16:00 74.844 kg [facility] [place] [facility] BMI 2020-11-15 21:16:00 26.63 kg/m2 [facility] [place] [facility] Systolic blood 2020-10-24 19:57:00 106 mm[Hg] Univer sity of pressure [place] [facility] Diastolic blood 2020-10-24 19:57:00 68 mm[Hg] Unive rsity of pressure [place] [facility] Heart rate 2020-10-24 19:57:00 85 /min [facility] [place] [facility] Body temperature 2020-10-24 19:57:00 36.17 Luz Maria [facility] [place] [facility] Body height 2020-10-24 19:57:00 167.6 cm [facility] [place] [facility] Body weight 2020-10-24 19:57:00 74.844 kg [facility] [place] [facility] BMI 2020-10-24 19:57:00 26.63 kg/m2 [facility] [place] [facility] Systolic blood 2020-09-20 16:03:00 140 mm[Hg] Univer sity of pressure [place] [facility] Diastolic blood 2020-09-20 16:03:00 78 mm[Hg] Unive rsity of pressure [place] [facility] Heart rate 2020-09-20 16:03:00 81 /min [facility] [place] [facility] Body height 2020-09-20 16:03:00 167.6 cm [facility] [place] [facility] Body weight 2020-09-20 16:03:00 72.576 kg [facility] [place] [facility] BMI 2020-09-20 16:03:00 25.82 kg/m2 [facility] [place] [facility] Systolic blood 2020-08-30 16:16:00 146 mm[Hg] Univer sity of pressure [place] [facility] Diastolic blood 2020-08-30 16:16:00 74 mm[Hg] Unive rsity of pressure [place] [facility] Heart rate 2020-08-30 16:16:00 85 /min [facility] [place] [facility] Body height 2020-08-30 16:15:00 167.6 cm [facility] [place] [facility] Body weight 2020-08-30 16:15:00 72.576 kg [facility] [place] [facility] BMI 2020-08-30 16:15:00 25.82 kg/m2 [facility] [place] [facility] Systolic blood 2020-08-16 13:59:00 132 mm[Hg] Univer sity of pressure [place] [facility] Diastolic blood 2020-08-16 13:59:00 65 mm[Hg] Unive rsity of pressure [place] [facility] Heart rate 2020-08-16 13:59:00 96 /min [facility] [place] [facility] Body temperature 2020-08-16 13:59:00 36.61 Luz Maria [facility] [place] [facility] Respiratory rate 2020-08-16 13:59:00 18 /min Univ ers[facility] [place] [facility] Body height 2020-08-16 13:59:00 167.6 cm [facility] [place] [facility] Body weight 2020-08-16 13:59:00 72.576 kg [facility] [place] [facility] BMI 2020-08-16 13:59:00 25.82 kg/m2 [facility] [place] [facility] Systolic blood 2020-07-19 14:05:00 155 mm[Hg] Univer sity of pressure [place] [facility] Diastolic blood 2020-07-19 14:05:00 72 mm[Hg] Unive rsity of pressure [facility] Heart rate 2020-07-19 14:05:00 78 /min Universi ty of [facility] Body temperature 2020-07-19 14:05:00 36.22 Luz Maria Univ ersity of [facility] Systolic blood 2020-07-02 21:31:00 124 mm[Hg] Univer sity of pressure [facility] Diastolic blood 2020-07-02 21:31:00 55 mm[Hg] Unive rsity of pressure [facility] Heart rate 2020-07-02 21:31:00 82 /min Universi ty of [facility] Body temperature 2020-07-02 21:31:00 37.17 Luz Maria [facility] [place] [facility] Respiratory rate 2020-07-02 21:31:00 18 /min [facility] Oxygen saturation in 2020-07-02 21:31:00 95 /min [facility] Arterial blood by [place] [facility] Pulse oximetry Branch Body weight 2020-06-28 11:22:00 76.34 kg [facility] BMI 2020-06-28 11:22:00 27.16 kg/m2 [facility] Body height 2020-06-23 02:58:00 167.6 cm [facility] Procedures Procedure Date / Time Performing Clinician Source Performed DME/SUPPLY JUSTIFICATION 2021-01-17 05:01:00 Doctor Unassigned, [facility] Name [facility] WOUND CULTURE 2020-08-30 17:03:00 Chan, [facility] ASSIGNMENT OF BENEFITS 2020-07-19 13:56:25 Doctor Unassigned, [facility] Name Medical Branch DNR 2020-07-06 06:01:00 Doctor Unassigned, [facility] Name Medical [place] POCT GLUCOSE (AUTOMATED) 2020-07-02 23:54:00 [facility] 2020-07-02 21:12:00 [facility] (AUTOMATED) 2020-07-02 16:31:00 [facility] PHOS[facility]US 2020-07-02 09:49:00 James Salgado [facility] MAGNESIUM 2020-07-02 09:49:00 James Salgado [facility] BASIC METABOLIC PANEL 2020-07-02 09:49:00 James Salgado [facility] (NA, K, CL, CO2, GLUCOSE, [place] Medica l Branch BUN, CREATININE, CA) VANCOMYCIN TROUGH 2020-07-02 09:49:00 Vinny Doran [facility] [place] POCT GLUCOSE (AUTOMATED) 2020-07-02 02:56:00 [facility] ([facility]OM[facility]) 2020-07-02 00:15:00 [facility] PO[facility]SE (AUTOMATED) 2020-07-01 19:44:00 [facility]SE (AUTOMATED) 2020-07-01 16:08:00 Farhan Dempsey iversity [facility] POCT GLUCOSE (AUTOMATED) 2020-07-01 14:19:00 Farhan Dempsey iversity [facility] PHOSPHORUS 2020-07-01 11:54:00 James Salgado [facility] MAGNESIUM 2020-07-01 11:54:00 James Salgado [facility] BASIC METABOLIC PANEL 2020-07-01 11:54:00 James Salgado [facility] (NA, K, CL, CO2, [facility]AT[facility], CA) CBC WITH DIFF 2020-07-01 11:53:00 James Salgado [facility] PREPARE PACKED RBC 2020-07-01 08:26:53 Shreyas Blum [facility] CBC WITH DIFF 2020-07-01 03:45:00 James Salgado [facility] POCT GLUCOSE (AUTOMATED) 2020-07-01 02:36:00 [facility] PO[facility]SE (AUTOMATED) 2020-06-30 23:53:00 [facility] 2020-06-30 22:41:33 Phillip Bronson [facility] POCT GLUCOSE (AUTOMATED) 2020-06-30 20:13:00 Farhan Dempsey Un iversity [facility] POCT GLUCOSE (AUTOMATED) 2020-06-30 18:09:00 [facility] HB ABO GROUPING 2020-06-30 16:29:00 Phillip Bronson [facility] POCT GLUCOSE (AUTOMATED) 2020-06-30 14:22:00 Farhan Dempsey Un iversity [facility] PHOSPHORUS 2020-06-30 11:33:00 [facility] 2020-06-30 11:33:00 [facility] BASIC METABOLIC PANEL 2020-06-30 11:33:00 [facility] ([facility], K, CL, CO2, [facility], [facility] BUN, CREATININE, CA) CBC WITH DIFF 2020-06-30 11:33:00 [facility] PO[facility]SE (AUTOMATED) 2020-06-30 10:59:00 [facility] PO[facility]SE (AUTOMATED) 2020-06-30 06:08:00 Farhan Dempsey iversity [facility] VANCOMYCIN TROUGH 2020-06-30 04:38:00 Vinny Doran [facility] [place] POCT GLUCOSE (AUTOMATED) 2020-06-30 02:50:00 Farhan Dempsey Un iversity [facility] POCT GLUCOSE (AUTOMATED) 2020-06-29 23:55:00 Farhan Dempsey Un iversity [facility] POCT GLUCOSE (AUTOMATED) 2020-06-29 19:21:00 Farhan Dempsey Un iversity [facility] POCT GLUCOSE (AUTOMATED) 2020-06-29 16:30:00 Farhan Dempsey Un iversity [facility] POCT GLUCOSE (AUTOMATED) 2020-06-29 14:41:00 Farhan Dempsey Un iversity [facility] POCT GLUCOSE (AUTOMATED) 2020-06-29 11:17:00 Farhan Dempsey Un iversity [facility] POCT GLUCOSE (AUTOMATED) 2020-06-29 07:58:00 Farhan Dempsey Un iversity [facility] BETA HYDROXY-BUTYRATE 2020-06-29 05:38:00 Shreyas Blum [facility] BASIC METABOLIC PANEL 2020-06-29 05:38:00 Shreyas Blum [facility] (NA, K, CL, CO2, GLUCOSE, Medica l Branch BUN, CREATININE, CA) POCT GLUCOSE (AUTOMATED) 2020-06-29 05:14:00 Farhan Dempsey Un iversrog[facility] POCT GLUCOSE (AUTOMATED) 2020-06-29 01:39:00 Farhan Dempsey Un iversity [facility] POCT GLUCOSE (AUTOMATED) 2020-06-29 00:03:00 Farhan Dempsey iversrogers [facility] BELOW THE KNEE AMPUTATION 2020-06-28 17:11:00 Aleyda Shay [facility] [place] POCT GLUCOSE (AUTOMATED) 2020-06-28 14:41:00 [facility] PO[facility] GLUCOSE (AUTOMATED) 2020-06-28 11:22:00 Farhan Dempsey Un iversity [facility] POCT GLUCOSE (AUTOMATED) 2020-06-28 06:29:00 [facility] PO[facility] GLUCOSE (AUTOMATED) 2020-06-28 03:10:00 Farhan Dempsey iversity [facility] POCT GLUCOSE (AUTOMATED) 2020-06-28 00:12:00 Farhan Dempsey iversity [facility] COVID-19 (ID NOW RAPID 2020-06-27 23:19:00 Phillip Bronson [facility] TESTING) Medical Branch LAB ONLY COVID 2020-06-27 23:19:00 Phillip Bronson [facility] INTERPRETATION [facility] POCT GLUCOSE (AUTOMATED) 2020-06-27 21:24:00 Farhan Dempsey Un iversity [facility] POCT GLUCOSE (AUTOMATED) 2020-06-27 18:01:00 Farhan Dempsey iversity [facility] POCT GLUCOSE (AUTOMATED) 2020-06-27 13:29:00 Farhan Dempsey Un iversity of [facility] POCT GLUCOSE (AUTOMATED) 2020-06-27 10:46:00 Farhan Dempsey Un iversity [facility] POCT GLUCOSE (AUTOMATED) 2020-06-27 08:16:00 Farhan Dempsey iversity [facility] POCT GLUCOSE (AUTOMATED) 2020-06-27 05:56:00 Farhan Dempsey iversity [facility] POCT GLUCOSE (AUTOMATED) 2020-06-27 02:38:00 Farhan Dempsey iversity [facility] POCT GLUCOSE (AUTOMATED) 2020-06-27 00:33:00 [facility] FL TIME OR 2020-06-26 21:33:[address] [facility] (NON-REPORTABLE) [facility] ARTERIOGRAM 2020-06-26 17:57:00 Farhan Dempsey [facility] [place] ANGIOPLASTY 2020-06-26 17:57:00 Farhan Dempsey [facility] [place] POCT GLUCOSE (AUTOMATED) 2020-06-26 14:58:00 [facility] BASIC [facility]OLIC PANEL 2020-06-26 11:02:00 [place] [facility] (NA, K, CL, CO2, GLUCOSE, Medica l Branch BUN, CREATININE, CA) CBC WITH DIFF 2020-06-26 11:02:00 [facility] POCT GLUCOSE (AUTOMATED) 2020-06-26 10:49:00 Farhan Dempsey iversity [facility] POCT GLUCOSE (AUTOMATED) 2020-06-26 05:42:00 Farhan Dempsey Un iversity [facility] POCT GLUCOSE (AUTOMATED) 2020-06-26 02:09:00 Farhan Dempsey Un iversity [facility] POCT GLUCOSE (AUTOMATED) 2020-06-25 23:32:00 Farhan Dempsey Un iversity [facility] POCT GLUCOSE (AUTOMATED) 2020-06-25 20:19:00 [facility] POCT GLUCOSE (AUTOMATED) 2020-06-25 18:46:00 Farhan Dempsey iversity of [facility] POCT GLUCOSE (AUTOMATED) 2020-06-25 17:46:00 Farhan Dempsey Un iversity [facility] POCT GLUCOSE (AUTOMATED) 2020-06-25 16:51:00 Farhan Dempsey Un iversity [facility] POCT GLUCOSE (AUTOMATED) 2020-06-25 15:34:00 Farhan Dempsey Un iversity [facility] POCT GLUCOSE (AUTOMATED) 2020-06-25 14:37:00 [facility] BASIC METABOLIC PANEL 2020-06-25 12:05:00 [place] [facility] (NA, K, CL, CO2, GLUCOSE, Medica l Branch BUN, CREATININE, CA) CBC WITH DIFF 2020-06-25 12:05:00 [place] [facility] ABORH CONFIRMATION 2020-06-25 07:15:00 King Fontanez [facility] HB ABO GROUPING 2020-06-25 06:58:00 [facility] 2020-06-24 23:26:00 [facility] POCT GLUCOSE (AUTOMATED) 2020-06-24 17:18:00 [place] [facility] POCT GLUCOSE (AUTOMATED) 2020-06-24 13:34:00 [place] [facility]anez [facility] BASIC METABOLIC PANEL 2020-06-24 10:31:00 [place] [facility] (NA, K, CL, CO2, GLUCOSE, Medica l Branch BUN, CREATININE, CA) CBC WITH DIFF 2020-06-24 10:31:00 [place] [facility] ELBERT MULTI LEVEL BY 2020-06-23 21:48:15 Huseyin Charmaine [facility] VASCULAR LAB Medical Branch POCT GLUCOSE (AUTOMATED) 2020-06-23 21:44:[address] [facility] ECHO ROUTINE W/DOPPLER 2020-06-23 21:23:43 Charmaine Fontanez [facility] POCT GLUCOSE (AUTOMATED) 2020-06-23 17:27:00 [place] [facility] UNILATERAL DUPLEX SCAN OF 2020-06-23 14:11:18 [facility] ART[facility] BY VASCULAR LAB [facility] POCT GLUCOSE (AUTOMATED) 2020-06-23 13:23:00 [place] [facility]anez [facility] GLYCOSYLATED HEMOGLOBIN 2020-06-23 09:40:00 [place] [facility] (A1C) [facility] LACTIC ACID WHOLE BLOOD 2020-06-23 09:40:00 King Fontanez [facility] C-REACTIVE PROTEIN 2020-06-23 03:57:00 King Fontanez [facility] BASIC METABOLIC PANEL 2020-06-23 03:55:00 King Fontanez [facility] (NA, K, CL, CO2, GLUCOSE, Medica l Branch BUN, CREATININE, CA) XR FOOT 3+ VW RIGHT 2020-06-23 03:38:13 King Fontanez [facility] COVID-19 (ID NOW RAPID 2020-06-23 03:22:00 King Fontanez [facility] TESTING) Medical Branch LAB ONLY COVID 2020-06-23 03:22:00 King Fontanez [facility] INTERPRETATION [facility] BLOOD CULTURE SCREEN 2020-06-23 03:20:00 King Fontanez [facility] SEDIMENTATION RATE 2020-06-23 03:20:00 King Fontanez [facility] CBC WITH DIFF 2020-06-23 03:20:00 King Fontanez [facility] [place] LACTIC ACID WHOLE BLOOD 2020-06-23 03:19:00 King Fontanez [facility] HOSPITAL ADMISSION 2020-06-22 06:01:00 Doctor Unassigned, Univer sity of [facility] Encounters Start End Encounter Admission Attending Care Care Encounter Source Date/Time Date/Time Type Type Clinicians Facility Department ID 2021-02-26 Emergency [facility] [id number] Univers 01:14:20 ity of [facility] 2021-02-07 2021-02-07 Telephone KENYA Shay [id number] Univers 00:00:00 00:00:00 Aleyda [facility] [id number] ity [id number] [id number] [address] 2021-01-17 2021-01-17 Orders Doctor SUREKHA [id number] Univers 00:00:00 00:00:00 Only Unassigned, KAYLYNN [id number] ity of [place] [facility] [id number] [place] [id number] [address] 2021-01-05 2021-01-05 [facility] [id number] Univers 13:00:00 13:00:00 ALEYDA [id number] [facility] o [facility] 2021-01-05 2021-01-05 Outpatient R YOEL [facility] [id number] Univers 00:00:00 00:00:00 JAYRO batista [facility] 2020-12-13 2020-12-13 Office Jaspal [facility] [id number] Univers 15:57:19 17:12:03 [facility] [id number] [id number] [id number] [address] 2020-12-13 2020-12-13 [facility] [id number] Univers 15:45:00 15:45:00 ALEYDA [id number] rogers o [facility] 2020-12-13 2020-12-13 [facility] [id number] Univers 15:45:00 15:45:00 ALEYDA batista [facility] 2020-11-15 2020-11-15 [facility] [id number] Univers 16:15:00 16:15:00 ALEYDA [id number] rogers salgado [facility] 2020-11-15 2020-11-15 [facility] [id number] Univers 16:15:00 16:15:00 ALEYDA batista f [facility] 2020-11-15 2020-11-15 Office KENYA Shay 1.2.840.114 [id number] Univers 15:59:50 16:14:50 Visit Aleyda [facility] 350.1.13.10 ity of [facility] [place] [phone] [address] 2020-11-14 2020-11-14 Outpatient R [facility] [id number] -[id number] Univers 15:15:00 15:15:00 [id number] [facility]-10-24 2020-10-24 Office Faculty, Vascular Surg UNIVERSIT 1 .2.840.114 [id number] Univers 14:46:39 16:39:13 Visit Katy Herrera [facility] 350. 1.13.10 ity [place] [phone] [address] 2020-10-24 2020-10-24 Outpatient R [facility] [id number] Univers 14:30:00 14:30:00 [id number] ity of [facility] 2020-10-24 2020-10-24 Outpatient R [facility] [id number] Univers 14:30:00 14:30:00 ity [facility] 2020-09-20 2020-09-20 Office [facility] 1.2.840.114 [id number] Univers 10:14:02 11:36:19 Visit Aleyda Omer 350.1.13.10 ity [facility] [place] [phone] [address] 2020-09-20 2020-09-20 [facility] [id number] Univers 10:00:00 10:00:00 ALEYDA [id number] fareedhetal salgado [facility] 2020-09-20 2020-09-20 [facility] [id number] Univers 10:00:00 10:00:00 ALEYDA guerrierhetal batista [facility] 2020-09-05 2020-09-05 Outpatient R MEGAN [facility] [id number] Univers 09:50:00 09:50:00 HAY [facility] 2020-08-30 2020-08-30 Office [facility] 1.2.840.114 [id number] Univers 10:30:00 12:04:41 Visit Aleyda Omer 350.1.13.10 ity nickie [place] [phone] [address] 2020-08-30 2020-08-30 [facility] [id number] N-20 Univers 10:30:00 10:30:00 ALEYDA [id number] rogers batista [facility] 2020-08-30 2020-08-30 [facility] [id number] Univers 10:30:00 10:30:00 ALEYDA guerrierhetal batista [facility] 2020-08-23 2020-08-23 Telephone [facility] 1.2.840.114 [id number] Univers 00:00:00 00:00:00 Aleyda Omer 350.1.13.10 ity nickie [place] [phone] [address] 2020-08-16 2020-08-16 [facility] [id number] Univers 09:40:00 09:40:00 HAY [facility] 2020-08-16 2020-08-16 Office [facility] 1.2.840.114 [id number] Univers 08:43:59 09:38:19 Visit Aleyda Omer 350.1.13.10 it[place] nickie [place] [phone] [facility] 2020-08-16 2020-08-16 Outpatient R [facility] [id number] Univers 08:45:00 08:45:00 ALEYDA [id number] rogers o damian [facility] 2020-08-16 2020-08-16 Outpatient R [facility] [id number] Univers 08:45:00 08:45:00 ALEYDA batista damian [facility] 2020-07-19 2020-07-19 Outpatient R [facility] [id number] N20 Univers 10:45:00 10:45:00 ALEYDA [id number] ity o damian [facility] 2020-07-19 2020-07-19 Outpatient R [facility] [id number] Univers 10:45:00 10:45:00 ALEYDA batista damian [facility] 2020-07-19 2020-07-19 Office [facility] 1.2.840.114 [id number] Univers 08:57:08 09:31:06 Visit Aleyda Omer 350.1.13.10 ity of [place] [phone] [address] 2020-07-19 2020-07-19 Orders Doctor SUREKHA 1.2.840.114 [id number] Univers 00:00:00 00:00:00 Only Unassigned, KAYLYNN 350.1.13.10 ity of [place] [facility] 4.2.7.2.686 [place] [phone] [facility] [address] 2020-07-11 2020-07-11 Patient Jie Olvera 1.2.840.114 [id number] Univers 00:00:00 00:00:00 Outreach E Hahn 350.1.13.10 i ty of [place] [phone] [facility] [address] 2020-07-06 2020-07-06 Orders Doctor SUREKHA 1.2.840.114 [id number] Univers 00:00:00 00:00:00 Only Unassigned, KAYLYNN 350.1.13.10 ity of [place] [facility] 4.2.7.2.686 [place] [phone] [facility] [address] 2020-07-06 2020-07-06 Telephone Kaitlin Alba 1.2.639.922 [id number] Univers 00:00:00 00:00:00 Julian Castillo 350.1.13.10 it y of Hospital 4.2.7.2.686 [place] [phone] [facility] [address] 2020-07-05 2020-07-05 Patient Jie Olvera Kaveh 1.2.840.114 [id number] Univers 00:00:00 00:00:00 Outreach E Hahn 350.1.13.10 i ty [place] [phone] [facility] [address] 2020-07-04 2020-07-04 Transition Kaveh Aviles 1.2.840.114 [id number] Univers 00:00:00 00:00:00 of Care Adelia Hahn 350.1.13.10 ity [place] [phone] [facility] [address] 2020-06-22 2020-07-02 [facility] 1.2.840. 114 [id number] Univers 21:05:00 21:00:00 Encounter Alessia Ontiverosy 350.1.13.10 ity of [facility] 4.2.7.2.686 [place] [phone] [facility] [address] 2020-07-02 2020-07-02 Telephone KENYA Bronson 1.2.840.114 [id number] Univers 00:00:00 00:00:00 [facility] 350.1.13.10 ity of CL[place] [phone] [facility] [address] 2020-06-30 2020-06-30 Transition Kaveh Aviles 1.2.840.114 [id number] Univers 00:00:00 00:00:00 of Care Adelia Hahn 350.1.13.10 ity of [place] [phone] [facility] [address] 2020-05-18 2020-05-18 Refill Mack, [facility] 1.2.840.114 [id number] Univers 00:00:00 00:00:00 Sendynes Omer 350.1.13.10 ity [place] [phone] [address] 2020-04-26 2020-04-26 Refill Mack, [facility] 1.2.840.114 [id number] Univers 00:00:00 00:00:00 Sendynes Omer 350.1.13.10 ity of [place] [phone] [address] 2020-04-25 2020-04-25 Refill Mack, [facility] 1.2.840.114 [id number] Univers 00:00:00 00:00:00 Angela Omer 350.1.13.10 ity of [place] [phone] [address] 2020-02-08 2020-02-08 Refill Mack, [facility] 1.2.840.114 [id number] Univers 00:00:00 00:00:00 Angela Omer 350.1.13.10 ity of [place] [phone] [address] 2018-11-26 2018-11-26 Telephone Giron, [facility] [id number] [id number] Univers 00:00:00 00:00:00 [facility] 350.1.13.10 ity of [place] [phone] [place] [address] [facility] Results Test Description Test Time Test Comments Results Result Comments Source POCT GLUCOSE (AUTOMATED) 2020-07-02 23:55:00 Test Item Value Reference Range Interpretation Comme nts POCT GLU (test code = 8575695610) 82 mg/dL 70-110 Lab Interpretation (test code = 43660-0) Normal [facility] GLUCOSE (AUTOMATED)2020-07-02 21:13:00 Test Item Value Reference Range Interpretation Comments POCT GLU (test code = 1980995097) 133 mg/dL 70-110 H Lab Interpretation (test code = Abnormal 77297-8) [facility] GLUCOSE (AUTOMATED)2020-07-02 16:33:00 Test Item Value Reference Range Interpretation Comments POCT GLU (test code = 5794857502) 173 mg/dL 70-110 H Lab Interpretation (test code = Abnormal 95859-0) [facility] - Draw within 30 minutes prior to 4TH dose.2020-07-02 11:22:00 Test Item Value Reference Range Interpretation Comments VANCO TROUGH (test code 18.8 ug/mL 10.0-20.0 = 8752637663) SAVITA (test code = SAVITA) Toxic Range: ?>20 ug/mL 15-20 ug/mL is recommended for severe infection or when Vancomycin HALEIGH is greater than or equal to 2. Lab Interpretation (test Normal code = 40333-3) [facility] (NA, K, CL, CO2, GLUCOSE, BUN, CREATININE, CA)2020-07-02 10:41:00 Test Item Value Reference Range Interpretation Comments NA (test code = 133 mmol/L 135-145 L 2961954052) K (test code = 4.5 mmol/L 3.5-5.0 Slight 6674365770) hemolysis CL (test code = 105 mmol/L 98-108 1321188399) CO2 TOTAL (test code 24 mmol/L 23-31 = 0727496171) AGAP (test code = 2-16 4145630701) BUN (test code = 16 mg/dL 7-23 Slight 5306160984) hemolysis GLUCOSE (test code = 128 mg/dL 70-110 H 8428898709) CREATININE (test code 1.25 mg/dL 0.50-1.04 H = 9651312702) CALCIUM (test code = 8.3 mg/dL 8.6-10.6 L 7465314755) eGFR Calculation mL/min/1.73m2 (Non-) (test code = 0060723574) eGFR Calculation mL/min/1.73m2 () (test code = 4605756101) SAVITA (test code = SAVITA) Association of Glomerular Filtration Rate (GFR) and Staging of Kidney Disease* + -----+ --------+ +| GFR (mL/min/1.73 m2) ?| With Kidney Damage ?| ?Without Kidney Damage+ +------- +---- --+| ?>90 ?| ?Stage one ?| ? Normal ?+ ------+ ---------+--------- +| ?60-89 ?| ?Stage two ?| ? Decreased GFR ? + -----+ --------+ +| ?30-59 ?| ?Stage three ?| ? Stage three ? + -----+ --------+ +| ?15-29 ?| ?Stage four ? | ? Stage four ?+ ------+ ---------+--------- +| ?<15 (or dialysis) ? ?| ?Stage five ? | ? Stage five ?+ ------+ ---------+--------- + *Each stage assumes the associated GFR level has been in effect for at least three months. ?Stages 1 to 5, with or without kidney disease, indicate chronic kidney disease. Notes: Determination of stages one and two (with eGFR >59mL/min/1.73 m2) requires estimation of kidney damage for at least three months as defined by structural or functional abnormalities of the kidney, manifested by either:Pathological abnormalities or Markers of kidney damage (including abnormalities in the composition of the blood or urine or abnormalities in imaging tests). Lab Interpretation Abnormal (test code = 19252-8) [facility] 10:41:00 Test Item Value Reference Range Interpretation Comments MAGNESIUM (test code = 7105026273) 2.1 mg/dL 1.7-2.4 Lab Interpretation (test code = Normal 23913-0) [facility]21[facility]06 10:41:00 Test Item Value Reference Range Interpretation Comments PHOSPHORUS (test code = 1371816538) 2.8 mg/dL 2.5-5.0 Lab Interpretation (test code = Normal 23666-2) [facility]2020-07-02 02:59:00 Test Item Value Reference Range Interpretation Comments POCT GLU (test code = 6693489590) 182 mg/dL 70-110 H Lab Interpretation (test code = Abnormal 95560-1) [facility] GLUCOSE (AUTOMATED)2020-07-02 00:16:00 Test Item Value Reference Range Interpretation Comments POCT GLU (test code = 2611266645) 215 mg/dL 70-110 H Lab Interpretation (test code = Abnormal 38941-4) [facility] GLUCOSE (AUTOMATED)2020-07-01 19:49:00 Test Item Value Reference Range Interpretation Comments POCT GLU (test code = 5041498756) 257 mg/dL 70-110 H Lab Interpretation (test code = Abnormal 21353-5) [facility] GLUCOSE (AUTOMATED)2020-07-01 16:10:00 Test Item Value Reference Range Interpretation Comments POCT GLU (test code = 7978745972) 175 mg/dL 70-110 H Lab Interpretation (test code = Abnormal 61592-6) [facility] GLUCOSE (AUTOMATED)2020-07-01 14:25:00 Test Item Value Reference Range Interpretation Comments POCT GLU (test code = 1253032962) 64 mg/dL 70-110 L Lab Interpretation (test code = Abnormal 62396-9) [facility] WITH [id number] 13:11:00 Test Item Value Reference Range Interpretation Comments WBC (test code = See_Comment H [Automated 6690-2) message] The system which generated this result transmit amando reference range : 4.30 - 11.10 10*3/?L. The reference range was not used to interpret this result as normal/abnormal . RBC (test code = See_Comment L [Automated 789-8) message] The system which generated this result transmit amando reference range : 3.93 - 5.25 10*6/?L. The reference range was not used to interpret this result as normal/abnormal . HGB (test code = 8.8 g/dL 11.6-15.0 L 718-7) HCT (test code = 26.0 % 35.7-45.2 L 4544-3) MCV (test code = 89.3 fL 80.6-95.5 787-2) MCH (test code = 30.2 pg 25.9-32.8 785-6) MCHC (test code = 33.8 g/dL 31.6-35.1 786-4) RDW-SD (test code = 52.1 fL 39.0-49.9 H 54464-0) RDW-CV (test code = 16.1 % 12.0-15.5 H 788-0) PLT (test code = See_Comment H [Automated 777-3) message] The system which generated this result transmit amando reference range : 166 - 358 10*3/ ?L. The reference range was not u sed to interpret th is result as normal/abnormal . MPV (test code = 10.3 fL 9.5-12.9 78752-1) NRBC/100 WBC (test See_Comment [Automat ed code = 1759246551) message] The system which generated this result transmit amando reference range : 0.0 - 10.0 /100 WBCs. The reference range was not used to interpret this result as normal/abnormal . NRBC x10^3 (test code <0.01 See_Comment [Auto mated = 6880087368) message] The system which generated this result transmit amando reference range : 10*3/?L. The reference range was not used to interpret this result as normal/abnormal . GRAN MAT (NEUT) % 72.7 % (test code = 770-8) IMM GRAN % (test code 1.10 % = 2242580460) LYMPH % (test code = 14.7 % 736-9) MONO % (test code = 9.2 % 5905-5) EOS % (test code = 1.8 % 713-8) BASO % (test code = 0.5 % 706-2) GRAN MAT x10^3(ANC) 13.54 10*3/uL 1.88-7.09 H (test code = 0976694886) IMM GRAN x10^3 (test 0.20 10*3/uL 0.00-0.06 H code = 3491817835) LYMPH x10^3 (test code 2.73 10*3/uL 1.32-3.29 = 731-0) MONO x10^3 (test code 1.72 10*3/uL 0.33-0.92 H = 742-7) EOS x10^3 (test code = 0.34 10*3/uL 0.03-0.39 711-2) BASO x10^3 (test code 0.10 10*3/uL 0.01-0.07 H = 704-7) BASO STIPPLING (test Present A code = 703-9) HYPERSEG NEUTS (test Present See_Comment A [Autom ated code = 765-8) message] The system which generated this result transmit amando reference range : (none). The reference range was not used to interpret this result as normal/abnormal . Lab Interpretation Abnormal (test code = 67838-7) [facility] METABOLIC PANEL (NA, K, CL, CO2, GLUCOSE, BUN, CREATININE, CA)2020-07-01 12:38:00 Test Item Value Reference Range Interpretation Comments NA (test code = 134 mmol/L 135-145 L 4458963871) K (test code = 4.1 mmol/L 3.5-5.0 1476600356) CL (test code = 104 mmol/L 98-108 4431609304) CO2 TOTAL (test code = 24 mmol/L 23-31 0650761620) AGAP (test code = 2-16 9936765120) BUN (test code = 18 mg/dL 7-23 3280506320) GLUCOSE (test code = 61 mg/dL 70-110 L 1456419141) CREATININE (test code = 1.40 mg/dL 0.50-1.04 H 3578339895) CALCIUM (test code = 8.2 mg/dL 8.6-10.6 L 6468844182) eGFR Calculation mL/min/1.73m2 (Non-) (test code = 3724882555) eGFR Calculation mL/min/1.73m2 () (test code = 9984346510) SAVITA (test code = SAVITA) Association of Glomerular Filtration Rate (GFR) and Staging of Kidney Disease* + --+ --+ ------+| GFR (mL/min/1.73 m2) ?| With Kidney Damage ?| ?Without Kidney Damage+ --------+ --------+ +| ?>90 ?| ?Stage one ?| ? Normal ?+ ---+ ---+ -------+| ?60-89 ?| ?Stage two ?| ? Decreased GFR ? + --+ --+ ------+| ?30-59 ?| ?Stage three ?| ? Stage three ? + --+ --+ ------+| ?15-29 ?| ?Stage four ? | ? Stage four ?+ ---+ ---+ -------+| ?<15 (or dialysis) ? ?| ?Stage five ? | ? Stage five ?+ ---+ ---+ -------+ *Each stage assumes the associated GFR level has been in effect for at least three months. ?Stages 1 to 5, with or without kidney disease, indicate chronic kidney disease. Notes: Determination of stages one and two (with eGFR >59mL/min/1.73 m2) requires estimation of kidney damage for at least three months as defined by structural or functional abnormalities of the kidney, manifested by either:Pathological abnormalities or Markers of kidney damage (including abnormalities in the composition of the blood or urine or abnormalities in imaging tests). Lab Interpretation Abnormal (test code = 08553-4) [facility] 12:38:00 Test Item Value Reference Range Interpretation Comments MAGNESIUM (test code = 4713201215) 2.0 mg/dL 1.7-2.4 Lab Interpretation (test code = Normal 69708-3) [facility] 12:38:00 Test Item Value Reference Range Interpretation Comments PHOSPHORUS (test code = 4176540496) 2.5 mg/dL 2.5-5.0 Lab Interpretation (test code = Normal 07471-5) [facility] P[facility] RBC (in units), 1 Units 2020-07-01 08:26:53 Test Item Value Reference Range Interpretation Comments Cross Match Result Compatible (test code = 4409) ISBT Blood Type Code (test code = 793783) Unit Blood Type (test A Pos code = 4410) Unit Number (test [id number] code = 4411) Blood Expiration Date & Time (test code = 340350) Status Information Issued (test code = 4412) Product Red Blood Cells Identification (test code = 4413) Product Code (test Q1246J00 Performed at [facility] code = 4414) Laboratory Services - [facility] Blood [address] [address]Wfhf Free: [phone] A No. [id number] [facility] WITH [id number] 03:59:00 Test Item Value Reference Range Interpretation Comments WBC (test code = See_Comment H [Automated 6690-2) message] The system which generated this result transmit amando reference range : 4.30 - 11.10 10*3/?L. The reference range was not used to interpret this result as normal/abnormal . RBC (test code = See_Comment L [Automated 789-8) message] The system which generated this result transmit amando reference range : 3.93 - 5.25 10*6/?L. The reference range was not used to interpret this result as normal/abnormal . HGB (test code = 6.3 g/dL 11.6-15.0 L 718-7) HCT (test code = 19.5 % 35.7-45.2 L 4544-3) MCV (test code = 92.4 fL 80.6-95.5 787-2) MCH (test code = 29.9 pg 25.9-32.8 785-6) MCHC (test code = 32.3 g/dL 31.6-35.1 786-4) RDW-SD (test code = 52.2 fL 39.0-49.9 H 95036-3) RDW-CV (test code = 15.5 % 12.0-15.5 788-0) PLT (test code = See_Comment H [Automated 777-3) message] The system which generated this result transmit amando reference range : 166 - 358 10*3/ ?L. The reference range was not u sed to interpret th is result as normal/abnormal . MPV (test code = 10.7 fL 9.5-12.9 61646-2) NRBC/100 WBC (test See_Comment [Automat ed code = 4692287791) message] The system which generated this result transmit amando reference range : 0.0 - 10.0 /100 WBCs. The reference range was not used to interpret this result as normal/abnormal . NRBC x10^3 (test code <0.01 See_Comment [Auto mated = 4275054714) message] The system which generated this result transmit amando reference range : 10*3/?L. The reference range was not used to interpret this result as normal/abnormal . GRAN MAT (NEUT) % 74.1 % (test code = 770-8) IMM GRAN % (test code 1.40 % = 9189752371) LYMPH % (test code = 14.1 % 736-9) MONO % (test code = 8.0 % 5905-5) EOS % (test code = 2.0 % 713-8) BASO % (test code = 0.4 % 706-2) GRAN MAT x10^3(ANC) 12.19 10*3/uL 1.88-7.09 H (test code = 5525932938) IMM GRAN x10^3 (test 0.23 10*3/uL 0.00-0.06 H code = 6677606400) LYMPH x10^3 (test code 2.31 10*3/uL 1.32-3.29 = 731-0) MONO x10^3 (test code 1.32 10*3/uL 0.33-0.92 H = 742-7) EOS x10^3 (test code = 0.33 10*3/uL 0.03-0.39 711-2) BASO x10^3 (test code 0.06 10*3/uL 0.01-0.07 = 704-7) Lab Interpretation Abnormal (test code = 46656-8) [facility] GLUCOSE (AUTOMATED)2020-07-01 02:37:00 Test Item Value Reference Range Interpretation Comments POCT GLU (test code = 3979984160) 181 mg/dL 70-110 H Lab Interpretation (test code = Abnormal 18720-9) [facility] GLUCOSE (AUTOMATED)2020-06-30 23:54:00 Test Item Value Reference Range Interpretation Comments POCT GLU (test code = 2849503781) 205 mg/dL 70-110 H Lab Interpretation (test code = Abnormal 47217-7) [facility] RBC (in units), 1 Units 2020-06-30 22:41:33 Test Item Value Reference Range Interpretation Comments Cross Match Result Compatible (test code = 4409) ISBT Blood Type Code (test code = 129832) Unit Blood Type (test A Neg code = 4410) Unit Number (test [id number] code = 4411) Blood Expiration Date & Time (test code = 298352) Status Information Issued (test code = 4412) Product Red Blood Cells Identification (test code = 4413) Product Code (test [id number] Performed at [facility] code = 4414) Laboratory Services - [facility] Blood [address] [facility] [address]Qpje Free: [phone] A No. [id number] [facility] GLUCOSE (AUTOMATED)2020-06-30 20:14:00 Test Item Value Reference Range Interpretation Comments POCT GLU (test code = 8350483290) 159 mg/dL 70-110 H Lab Interpretation (test code = Abnormal 75969-6) [facility] GLUCOSE (AUTOMATED)2020-06-30 18:10:00 Test Item Value Reference Range Interpretation Comments POCT GLU (test code = 7449598844) 89 mg/dL 70-110 Lab Interpretation (test code = Normal 66345-2) [facility] Screen - ONCE [id number] 17:13:28 Test Item Value Reference Range Interpretation Comments ABO & RH (test code A POSITIVE Performe d at [facility] = 20) Laboratory Serv [facility] Blood [facility]3 [address] [facility] [address]Pvoe Free: [phone] A No. [id number] IAT (test code = Negative Performed a t [facility] 1185) Laboratory Serv [facility] Blood [facility] [address] [facility] [address]Gjiw Free: [phone] A No. [id number] [facility] GLUCOSE (AUTOMATED)2020-06-30 14:32:00 Test Item Value Reference Range Interpretation Comments POCT GLU (test code = 9407386468) 118 mg/dL 70-110 H Lab Interpretation (test code = Abnormal 84345-6) [facility] METABOLIC PANEL (NA, K, CL, CO2, GLUCOSE, BUN, CREATININE, CA)2020-06-30 12:40:00 Test Item Value Reference Range Interpretation Comments NA (test code = 134 mmol/L 135-145 L 5958410052) K (test code = 4.2 mmol/L 3.5-5.0 2152104171) CL (test code = 104 mmol/L 98-108 9504081355) CO2 TOTAL (test code = 23 mmol/L 23-31 8920046566) AGAP (test code = 2-16 5143610188) BUN (test code = 22 mg/dL 7-23 5615741151) GLUCOSE (test code = 112 mg/dL 70-110 H 3003584555) CREATININE (test code = 1.52 mg/dL 0.50-1.04 H 2495468839) CALCIUM (test code = 8.4 mg/dL 8.6-10.6 L 3188799518) eGFR Calculation mL/min/1.73m2 (Non-) (test code = 3616465617) eGFR Calculation mL/min/1.73m2 () (test code = 6247754985) SAVITA (test code = SAVITA) Association of Glomerular Filtration Rate (GFR) and Staging of Kidney Disease* + --+ --+ ------+| GFR (mL/min/1.73 m2) ?| With Kidney Damage ?| ?Without Kidney Damage+ --------+ --------+ +| ?>90 ?| ?Stage one ?| ? Normal ?+ ---+ ---+ -------+| ?60-89 ?| ?Stage two ?| ? Decreased GFR ? + --+ --+ ------+| ?30-59 ?| ?Stage three ?| ? Stage three ? + --+ --+ ------+| ?15-29 ?| ?Stage four ? | ? Stage four ?+ ---+ ---+ -------+| ?<15 (or dialysis) ? ?| ?Stage five ? | ? Stage five ?+ ---+ ---+ -------+ *Each stage assumes the associated GFR level has been in effect for at least three months. ?Stages 1 to 5, with or without kidney disease, indicate chronic kidney disease. Notes: Determination of stages one and two (with eGFR >59mL/min/1.73 m2) requires estimation of kidney damage for at least three months as defined by structural or functional abnormalities of the kidney, manifested by either:Pathological abnormalities or Markers of kidney damage (including abnormalities in the composition of the blood or urine or abnormalities in imaging tests). Lab Interpretation Abnormal (test code = 02414-8) [facility] 12:40:00 Test Item Value Reference Range Interpretation Comments MAGNESIUM (test code = 8722832623) 2.0 mg/dL 1.7-2.4 Lab Interpretation (test code = Normal 85128-8) [facility]00 Test Item Value Reference Range Interpretation Comments PHOSPHORUS (test code = 8175007045) 2.9 mg/dL 2.5-5.0 Lab Interpretation (test code = Normal 22297-6) [facility] [id number] 12:33:00 Test Item Value Reference Range Interpretation Comments WBC (test code = See_Comment H [Automated 6690-2) message] The system which generated this result transmit amando reference range : 4.30 - 11.10 10*3/?L. The reference range was not used to interpret this result as normal/abnormal . RBC (test code = See_Comment L [Automated 789-8) message] The system which generated this result transmit amando reference range : 3.93 - 5.25 10*6/?L. The reference range was not used to interpret this result as normal/abnormal . HGB (test code = 6.3 g/dL 11.6-15.0 L 718-7) HCT (test code = 19.5 % 35.7-45.2 L 4544-3) MCV (test code = 95.6 fL 80.6-95.5 H 787-2) MCH (test code = 30.9 pg 25.9-32.8 785-6) MCHC (test code = 32.3 g/dL 31.6-35.1 786-4) RDW-SD (test code = 45.1 fL 39.0-49.9 66768-6) RDW-CV (test code = 12.9 % 12.0-15.5 788-0) PLT (test code = See_Comment H [Automated 777-3) message] The system which generated this result transmit amando reference range : 166 - 358 10*3/ ?L. The reference range was not u sed to interpret th is result as normal/abnormal . MPV (test code = 10.0 fL 9.5-12.9 10839-7) NRBC/100 WBC (test See_Comment [Automat ed code = 8799730262) message] The system which generated this result transmit amando reference range : 0.0 - 10.0 /100 WBCs. The reference range was not used to interpret this result as normal/abnormal . NRBC x10^3 (test code <0.01 See_Comment [Auto mated = 5802306591) message] The system which generated this result transmit amando reference range : 10*3/?L. The reference range was not used to interpret this result as normal/abnormal . GRAN MAT (NEUT) % 73.1 % (test code = 770-8) IMM GRAN % (test code 1.00 % = 8452096086) LYMPH % (test code = 15.8 % 736-9) MONO % (test code = 8.0 % 5905-5) EOS % (test code = 1.6 % 713-8) BASO % (test code = 0.5 % 706-2) GRAN MAT x10^3(ANC) 14.26 10*3/uL 1.88-7.09 H (test code = 4608664249) IMM GRAN x10^3 (test 0.20 10*3/uL 0.00-0.06 H code = 8468150759) LYMPH x10^3 (test code 3.08 10*3/uL 1.32-3.29 = 731-0) MONO x10^3 (test code 1.57 10*3/uL 0.33-0.92 H = 742-7) EOS x10^3 (test code = 0.32 10*3/uL 0.03-0.39 711-2) BASO x10^3 (test code 0.09 10*3/uL 0.01-0.07 H = 704-7) HYPERSEG NEUTS (test Present See_Comment A [Autom ated code = 765-8) message] The system which generated this result transmit amando reference range : (none). The reference range was not used to interpret this result as normal/abnormal . Lab Interpretation Abnormal (test code = 38627-0) [facility] GLUCOSE (AUTOMATED)2020-06-30 11:02:00 Test Item Value Reference Range Interpretation Comments POCT GLU (test code = 8205738840) 130 mg/dL 70-110 H Lab Interpretation (test code = Abnormal 70539-4) [facility] - Draw within 30 minutes prior to 4TH dose.2020-06-30 06:12:00 Test Item Value Reference Range Interpretation Comments VANCO TROUGH (test code 27.0 ug/mL 10.0-20.0 H = 6033485498) SAVITA (test code = SAVITA) Toxic Range: ?>20 ug/mL 15-20 ug/mL is recommended for severe infection or when Vancomycin HALEIGH is greater than or equal to 2. Lab Interpretation (test Abnormal code = 80741-7) [facility] GLUCOSE (AUTOMATED)2020-06-30 06:11:00 Test Item Value Reference Range Interpretation Comments POCT GLU (test code = 0162527550) 151 mg/dL 70-110 H Lab Interpretation (test code = Abnormal 49917-1) [facility] GLUCOSE (AUTOMATED)2020-06-30 02:51:00 Test Item Value Reference Range Interpretation Comments POCT GLU (test code = 2458792963) 248 mg/dL 70-110 H Lab Interpretation (test code = Abnormal 36614-5) [facility] GLUCOSE (AUTOMATED)2020-06-29 23:58:00 Test Item Value Reference Range Interpretation Comments POCT GLU (test code = 4480143160) 317 mg/dL 70-110 H Lab Interpretation (test code = Abnormal 53005-1) [facility] GLUCOSE (AUTOMATED)2020-06-29 19:25:00 Test Item Value Reference Range Interpretation Comments POCT GLU (test code = 1492792621) 124 mg/dL 70-110 H Lab Interpretation (test code = Abnormal 54281-8) [facility] GLUCOSE (AUTOMATED)2020-06-29 16:33:00 Test Item Value Reference Range Interpretation Comments POCT GLU (test code = 9565077935) 163 mg/dL 70-110 H Lab Interpretation (test code = Abnormal 07002-3) [facility] GLUCOSE (AUTOMATED)2020-06-29 14:42:00 Test Item Value Reference Range Interpretation Comments POCT GLU (test code = 1947889739) 140 mg/dL 70-110 H Lab Interpretation (test code = Abnormal 02305-0) [facility] GLUCOSE (AUTOMATED)2020-06-29 11:17:00 Test Item Value Reference Range Interpretation Comments POCT GLU (test code = 3135178054) 149 mg/dL 70-110 H Lab Interpretation (test code = Abnormal 04567-7) [facility] GLUCOSE (AUTOMATED)2020-06-29 08:01:00 Test Item Value Reference Range Interpretation Comments POCT GLU (test code = 7311355816) 195 mg/dL 70-110 H Lab Interpretation (test code = Abnormal 04030-9) [facility]BETA [id number] 06:16:00 Test Item Value Reference Range Interpretation Comments BOH (test code = 0.1 mmol/L 2944210335) SAVITA (test code = Normal Ranges: ? ? SAVITA) Nonfasting ? Less than 0.1 mmol/L ? ? Overnight Fast ? ? ? Less than 0.4 mmol/L ? ? Fasting (1-2 weeks) ?6-8 mmol/L Test developed and characteristics determined by [facility] Laboratory Services. [facility] (NA, K, CL, CO2, GLUCOSE, BUN, CREATININE, CA)2020-06-29 06:11:00 Test Item Value Reference Range Interpretation Comments NA (test code = 135 mmol/L 135-145 9686395385) K (test code = 4.0 mmol/L 3.5-5.0 2030862175) CL (test code = 104 mmol/L 98-108 3214892608) CO2 TOTAL (test code = 25 mmol/L 23-31 8441911157) AGAP (test code = 2-16 9137327045) BUN (test code = 26 mg/dL 7-23 H 7457446294) GLUCOSE (test code = 231 mg/dL 70-110 H 8697518188) CREATININE (test code = 1.87 mg/dL 0.50-1.04 H 5160115551) CALCIUM (test code = 8.2 mg/dL 8.6-10.6 L 7582420296) eGFR Calculation mL/min/1.73m2 (Non-) (test code = 2453570838) eGFR Calculation mL/min/1.73m2 () (test code = 9331758800) SAVITA (test code = SAVITA) Association of Glomerular Filtration Rate (GFR) and Staging of Kidney Disease* + --+ --+ ------+| GFR (mL/min/1.73 m2) ?| With Kidney Damage ?| ?Without Kidney Damage+ --------+ --------+ +| ?>90 ?| ?Stage one ?| ? Normal ?+ ---+ ---+ -------+| ?60-89 ?| ?Stage two ?| ? Decreased GFR ? + --+ --+ ------+| ?30-59 ?| ?Stage three ?| ? Stage three ? + --+ --+ ------+| ?15-29 ?| ?Stage four ? | ? Stage four ?+ ---+ ---+ -------+| ?<15 (or dialysis) ? ?| ?Stage five ? | ? Stage five ?+ ---+ ---+ -------+ *Each stage assumes the associated GFR level has been in effect for at least three months. ?Stages 1 to 5, with or without kidney disease, indicate chronic kidney disease. Notes: Determination of stages one and two (with eGFR >59mL/min/1.73 m2) requires estimation of kidney damage for at least three months as defined by structural or functional abnormalities of the kidney, manifested by either:Pathological abnormalities or Markers of kidney damage (including abnormalities in the composition of the blood or urine or abnormalities in imaging tests). Lab Interpretation Abnormal (test code = 79095-2) [facility]2020-[facility]-29 05:25:00 Test Item Value Reference Range Interpretation Comments POCT GLU (test code = 9770250999) 259 mg/dL 70-110 H Lab Interpretation (test code = Abnormal 15220-9) [facility] COVID [id number] 04:52:00COVID DMT InterpretationInterpretation/Recommendations: Molecular NAAT Tests for Active Infection with the SARS-CoV-2 Virus: The patient has currently tested negative for the SARS-CoV-2 virus that causes COVID-19 illness. This most likely indicates that the patient does not have an active infection with the SARS-CoV-2 virus. However, infection is not completely ruled out as the false negative rate for molecular NAAT testing using a nasopharyngeal sample can be up to 30%, mostly dependent on the timing of sample collection in relation to illness onset and any deficiencies in sampling techniques. If the patient has symptoms concerning for COVID-19 illness, a repeat NAAT test (PCR, Rapid ID Now, etc.) should be performed, at which time the SARS-CoV-2 virus - if present - may have reached a detectable viral load (usually peaking by the end of the first week of symptoms). Tests for IgM and/or IgGAntibodies to the SARS-CoV-2 Virus: If the patient develops COVID-19 illness in the future, testingfor IgM and IgG antibodies approximately 3 weeks after illness onset will likely indicate if the patient has produced antibodies to the SARS-CoV-2 virus. However, some patients may take longer to develop detectable antibodies, while some patients who were infected with SARS-CoV-2 may never develop antibodies. While antibodies to SARS-CoV-2 may provide some degree of immunity, at this time the strength and duration of the antibody response is unknown. Interpretation Result Comments:These interpretation comments are based upon all COVID-19 testing the patient has had at [facility], including molecular NAAT testing (more commonly known as PCR testing and Rapid ID Now testing) and antibody testing. It does not take into account any testing that a patient has had outside of the [facility] medical record. [facility] LABORATORY SERVICESCOVID Resu [id number] Rapid ID NOW (no units) ? ? Date ? Value ? 06/27/2020 ? Not Detected ? ? ? 06/22/2020 ? Not Detected ? [facility]SE [facility]2020-06-29 01:43:00 Test Item Value Reference Range Interpretation Comments POCT GLU (test code = 2418342141) 504 mg/dL 70-110 HH Lab Interpretation (test code = Abnormal 93261-7) [facility] GLUCOSE (AUTOMATED)2020-06-29 00:22:00 Test Item Value Reference Range Interpretation Comments POCT GLU (test code = 7388000990) 427 mg/dL 70-110 H Lab Interpretation (test code = Abnormal 56389-2) [facility] GLUCOSE (AUTOMATED)2020-06-28 14:46:00 Test Item Value Reference Range Interpretation Comments POCT GLU (test code = 8598222515) 267 mg/dL 70-110 H Lab Interpretation (test code = Abnormal 55918-2) [facility] GLUCOSE (AUTOMATED)2020-06-28 11:25:00 Test Item Value Reference Range Interpretation Comments POCT GLU (test code = 4039143751) 167 mg/dL 70-110 H Lab Interpretation (test code = Abnormal 90662-3) [facility] GLUCOSE (AUTOMATED)2020-06-28 06:31:00 Test Item Value Reference Range Interpretation Comments POCT GLU (test code = 8224088715) 82 mg/dL 70-110 Lab Interpretation (test code = Normal 18575-5) [facility] [id number] 04:01:00 Test Item Value Reference Range Interpretation Comments Blood Culture-Aerobic No organisms No growth Previo us (test code = 37779-5) isolated prelim inary verified result was Culture In Progress on 06/23/2020 at 01 01 CSTPrevious preliminary verified result was No growth a t 24 hours on 06/23/2020 at 22 01 CSTPrevious preliminary verified result was No growth a t 48 hours on 06/24/2020 at 22 01 CSTPrevious preliminary verified result was No growth a t 72 hours on 06/25/2020 at 22 01 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 Blood No organisms No growth Previous Culture-Anaerobic isolated preliminar y (test code = 17471-4) verifi ed result was Culture In Progress on 06/23/2020 at 01 01 CSTPrevious preliminary verified result was No growth a t 24 hours on 06/23/2020 at 22 01 CSTPrevious preliminary verified result was No growth a t 48 hours on 06/24/2020 at 22 01 CSTPrevious preliminary verified result was No growth a t 72 hours on 06/25/2020 at 22 01 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 Lab Interpretation Normal (test code = 08050-6) [facility] [id number] 04:01:00 Test Item Value Reference Range Interpretation Comments Blood Culture-Aerobic No organisms No growth Previo us (test code = 18304-3) isolated prelim inary verified result was Culture In Progress on 06/23/2020 at 01 01 CSTPrevious preliminary verified result was No growth a t 24 hours on 06/23/2020 at 22 01 CSTPrevious preliminary verified result was No growth a t 48 hours on 06/24/2020 at 22 01 CSTPrevious preliminary verified result was No growth a t 72 hours on 06/25/2020 at 22 01 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 Blood No organisms No growth Previous Culture-Anaerobic isolated preliminar y (test code = 15510-5) verifi ed result was Culture In Progress on 06/23/2020 at 01 01 CSTPrevious preliminary verified result was No growth a t 24 hours on 06/23/2020 at 22 01 CSTPrevious preliminary verified result was No growth a t 48 hours on 06/24/2020 at 22 01 CSTPrevious preliminary verified result was No growth a t 72 hours on 06/25/2020 at 22 01 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 Lab Interpretation Normal (test code = 27355-1) [facility] GLUCOSE (AUTOMATED)2020-06-28 03:13:00 Test Item Value Reference Range Interpretation Comments POCT GLU (test code = 8575433842) 82 mg/dL 70-110 Lab Interpretation (test code = Normal 19203-8) [facility] GLUCOSE (AUTOMATED)2020-06-28 00:16:00 Test Item Value Reference Range Interpretation Comments POCT GLU (test code = 0788356615) 156 mg/dL 70-110 H Lab Interpretation (test code = Abnormal 68152-0) [facility]ID NOW RAPID TESTING)2020-06-27 23:44:00 Test Item Value Reference Range Interpretation Comments SARS-CoV-2 Rapid ID NOW Not Detected Not Detected (test code = 26536-7) SAVITA (test code = SAVITA) ID NOW COVID-19 Assay is an isothermal nucleic acid amplification test intended for the qualitative detection of nucleic acid from SARS-CoV-2 viral RNA in nasopharyngeal (HR CLERK) specimens. It is used under Emergency Use Authorization (EUA) by FDA. The limit of detection (LOD) of the assay is 125 Genome Equivalents/mL. A positive result is indicative of the presence of SARS-CoV-2 RNA. ?Clinical correlation with patient history and other diagnostic information is necessary to determine patient infection status. A negative (Not Detected) result does not preclude SARS-CoV-2 infection. In patients with clinical symptoms and other tests that are consistent with SARS-CoV-2 infection, negative results should be treated as presumptive negative and a new specimen should be tested with alternative PCR molecular test. Invalid: Please collect a new specimen for repeat patient testing if clinically indicated. Lab Interpretation Normal (test code = 87582-8) [facility] GLUCOSE (AUTOMATED)2020-06-27 21:25:00 Test Item Value Reference Range Interpretation Comments POCT GLU (test code = 3759824898) 180 mg/dL 70-110 H Lab Interpretation (test code = Abnormal 15773-6) [facility] GLUCOSE (AUTOMATED)2020-06-27 18:12:00 Test Item Value Reference Range Interpretation Comments POCT GLU (test code = 0567541857) 191 mg/dL 70-110 H Lab Interpretation (test code = Abnormal 63403-7) [facility] GLUCOSE (AUTOMATED)2020-06-27 13:40:00 Test Item Value Reference Range Interpretation Comments POCT GLU (test code = 9713165823) 295 mg/dL 70-110 H Lab Interpretation (test code = Abnormal 56971-9) [facility] GLUCOSE (AUTOMATED)2020-06-27 10:48:00 Test Item Value Reference Range Interpretation Comments POCT GLU (test code = 8613372894) 317 mg/dL 70-110 H Lab Interpretation (test code = Abnormal 13536-0) [facility] GLUCOSE (AUTOMATED)2020-06-27 08:18:00 Test Item Value Reference Range Interpretation Comments POCT GLU (test code = 6435770617) 400 mg/dL 70-110 H Lab Interpretation (test code = Abnormal 51051-0) [facility] GLUCOSE (AUTOMATED)2020-06-27 05:57:00 Test Item Value Reference Range Interpretation Comments POCT GLU (test code = 6572048759) 436 mg/dL 70-110 H Lab Interpretation (test code = Abnormal 66884-9) [facility] GLUCOSE (AUTOMATED)2020-06-27 02:40:00 Test Item Value Reference Range Interpretation Comments POCT GLU (test code = 1207089451) 363 mg/dL 70-110 H Lab Interpretation (test code = Abnormal 30084-6) [facility] GLUCOSE (AUTOMATED)2020-06-27 00:34:00 Test Item Value Reference Range Interpretation Comments POCT GLU (test code = 8252743423) 380 mg/dL 70-110 H Lab Interpretation (test code = Abnormal 20120-5) [facility] (NON-REPORTABLE)2020-06-26 23:29:24 These images do not require a Radiology diagnostic report.[facility] GLUCOSE (AUTOMATED)2020-06-26 15:17:00 Test Item Value Reference Range Interpretation Comments POCT GLU (test code = 338 mg/dL 70-110 H Notifi ed Provider [id number]) Lab Interpretation (test Abnormal code = 26908-1) [facility] Metabolic Panel (NA, K, CL, CO2, GLUCOSE, BUN, CREATININE, CA)2020-06-26 11:57:00 Test Item Value Reference Range Interpretation Comments NA (test code = 137 mmol/L 135-145 8268875482) K (test code = 4.0 mmol/L 3.5-5.0 0924391472) CL (test code = 105 mmol/L 98-108 1493801195) CO2 TOTAL (test code = 24 mmol/L 23-31 5888005231) AGAP (test code = 2-16 7842035874) BUN (test code = 17 mg/dL 7-23 6267753166) GLUCOSE (test code = 289 mg/dL 70-110 H 4690898045) CREATININE (test code = 1.13 mg/dL 0.50-1.04 H 7183372931) CALCIUM (test code = 9.0 mg/dL 8.6-10.6 9426849856) eGFR Calculation mL/min/1.73m2 (Non-) (test code = 9464881933) eGFR Calculation mL/min/1.73m2 () (test code = 5047857225) SAVITA (test code = SAVITA) Association of Glomerular Filtration Rate (GFR) and Staging of Kidney Disease* + --+ --+ ------+| GFR (mL/min/1.73 m2) ?| With Kidney Damage ?| ?Without Kidney Damage+ --------+ --------+ +| ?>90 ?| ?Stage one ?| ? Normal ?+ ---+ ---+ -------+| ?60-89 ?| ?Stage two ?| ? Decreased GFR ? + --+ --+ ------+| ?30-59 ?| ?Stage three ?| ? Stage three ? + --+ --+ ------+| ?15-29 ?| ?Stage four ? | ? Stage four ?+ ---+ ---+ -------+| ?<15 (or dialysis) ? ?| ?Stage five ? | ? Stage five ?+ ---+ ---+ -------+ *Each stage assumes the associated GFR level has been in effect for at least three months. ?Stages 1 to 5, with or without kidney disease, indicate chronic kidney disease. Notes: Determination of stages one and two (with eGFR >59mL/min/1.73 m2) requires estimation of kidney damage for at least three months as defined by structural or functional abnormalities of the kidney, manifested by either:Pathological abnormalities or Markers of kidney damage (including abnormalities in the composition of the blood or urine or abnormalities in imaging tests). Lab Interpretation Abnormal (test code = 44842-3) [facility] with [id number] 11:31:00 Test Item Value Reference Range Interpretation Comments WBC (test code = See_Comment H [Automated 1190-2) message] The system which generated this result transmit amando reference range : 4.30 - 11.10 10*3/?L. The reference range was not used to interpret this result as normal/abnormal . RBC (test code = See_Comment L [Automated 919-8) message] The system which generated this result transmit amando reference range : 3.93 - 5.25 10*6/?L. The reference range was not used to interpret this result as normal/abnormal . HGB (test code = 9.6 g/dL 11.6-15.0 L 718-7) HCT (test code = 29.6 % 35.7-45.2 L 4544-3) MCV (test code = 94.0 fL 80.6-95.5 787-2) MCH (test code = 30.5 pg 25.9-32.8 785-6) MCHC (test code = 32.4 g/dL 31.6-35.1 786-4) RDW-SD (test code = 43.2 fL 39.0-49.9 79237-5) RDW-CV (test code = 12.6 % 12.0-15.5 788-0) PLT (test code = See_Comment H [Automated 777-3) message] The system which generated this result transmit amando reference range : 166 - 358 10*3/ ?L. The reference range was not u sed to interpret th is result as normal/abnormal . MPV (test code = 10.6 fL 9.5-12.9 19253-6) NRBC/100 WBC (test See_Comment [Automat ed code = 6494144697) message] The system which generated this result transmit amando reference range : 0.0 - 10.0 /100 WBCs. The reference range was not used to interpret this result as normal/abnormal . NRBC x10^3 (test code <0.01 See_Comment [Auto mated = 2453402761) message] The system which generated this result transmit amando reference range : 10*3/?L. The reference range was not used to interpret this result as normal/abnormal . GRAN MAT (NEUT) % 75.3 % (test code = 770-8) IMM GRAN % (test code 0.70 % = 1804255219) LYMPH % (test code = 15.7 % 736-9) MONO % (test code = 6.6 % 5905-5) EOS % (test code = 1.3 % 713-8) BASO % (test code = 0.4 % 706-2) GRAN MAT x10^3(ANC) 13.68 10*3/uL 1.88-7.09 H (test code = 2719835089) IMM GRAN x10^3 (test 0.13 10*3/uL 0.00-0.06 H code = 8277888457) LYMPH x10^3 (test code 2.86 10*3/uL 1.32-3.29 = 731-0) MONO x10^3 (test code 1.20 10*3/uL 0.33-0.92 H = 742-7) EOS x10^3 (test code = 0.23 10*3/uL 0.03-0.39 711-2) BASO x10^3 (test code 0.07 10*3/uL 0.01-0.07 = 704-7) Lab Interpretation Abnormal (test code = 46047-9) [facility] GLUCOSE (AUTOMATED)2020-06-26 10:50:00 Test Item Value Reference Range Interpretation Comments POCT GLU (test code = 0371217009) 296 mg/dL 70-110 H Lab Interpretation (test code = Abnormal 38811-7) [facility] GLUCOSE (AUTOMATED)2020-06-26 05:43:00 Test Item Value Reference Range Interpretation Comments POCT GLU (test code = 7598386489) 250 mg/dL 70-110 H Lab Interpretation (test code = Abnormal 44084-8) [facility] GLUCOSE (AUTOMATED)2020-06-26 02:13:00 Test Item Value Reference Range Interpretation Comments POCT GLU (test code = 2489653083) 162 mg/dL 70-110 H Lab Interpretation (test code = Abnormal 34178-6) [facility] GLUCOSE (AUTOMATED)2020-06-25 23:35:00 Test Item Value Reference Range Interpretation Comments POCT GLU (test code = 0055524138) 172 mg/dL 70-110 H Lab Interpretation (test code = Abnormal 93348-2) [facility] GLUCOSE (AUTOMATED)2020-06-25 20:22:00 Test Item Value Reference Range Interpretation Comments POCT GLU (test code = 9062863498) 146 mg/dL 70-110 H Lab Interpretation (test code = Abnormal 70526-6) [facility] GLUCOSE (AUTOMATED)2020-06-25 18:49:00 Test Item Value Reference Range Interpretation Comments POCT GLU (test code = 7014727043) 305 mg/dL 70-110 H Lab Interpretation (test code = Abnormal 49351-2) [facility] GLUCOSE (AUTOMATED)2020-06-25 17:48:00 Test Item Value Reference Range Interpretation Comments POCT GLU (test code = 5927885861) 442 mg/dL 70-110 H Lab Interpretation (test code = Abnormal 30515-5) [facility] GLUCOSE (AUTOMATED)2020-06-25 16:57:00 Test Item Value Reference Range Interpretation Comments POCT GLU (test code = 6929448490) 534 mg/dL 70-110 HH Lab Interpretation (test code = Abnormal 34946-1) [facility] GLUCOSE (AUTOMATED)2020-06-25 15:36:00 Test Item Value Reference Range Interpretation Comments POCT GLU (test code = 4291814725) 521 mg/dL 70-110 HH Lab Interpretation (test code = Abnormal 06287-1) [facility] GLUCOSE (AUTOMATED)2020-06-25 14:38:00 Test Item Value Reference Range Interpretation Comments POCT GLU (test code = 5565904990) 499 mg/dL 70-110 HH Lab Interpretation (test code = Abnormal 31249-7) [facility] Metabolic Panel (NA, K, CL, CO2, GLUCOSE, BUN, CREATININE, CA)2020-06-25 12:45:00 Test Item Value Reference Range Interpretation Comments NA (test code = 135 mmol/L 135-145 6867545344) K (test code = 4.3 mmol/L 3.5-5.0 1748495358) CL (test code = 103 mmol/L 98-108 4809574054) CO2 TOTAL (test code = 25 mmol/L 23-31 3958280028) AGAP (test code = 2-16 5784279859) BUN (test code = 20 mg/dL 7-23 9898267759) GLUCOSE (test code = 442 mg/dL 70-110 H 5884037775) CREATININE (test code = 1.33 mg/dL 0.50-1.04 H 1971443264) CALCIUM (test code = 8.9 mg/dL 8.6-10.6 4636216614) eGFR Calculation mL/min/1.73m2 (Non-) (test code = 8156590264) eGFR Calculation mL/min/1.73m2 () (test code = 5787241107) SAVITA (test code = SAVITA) Association of Glomerular Filtration Rate (GFR) and Staging of Kidney Disease* + --+ --+ ------+| GFR (mL/min/1.73 m2) ?| With Kidney Damage ?| ?Without Kidney Damage+ --------+ --------+ +| ?>90 ?| ?Stage one ?| ? Normal ?+ ---+ ---+ -------+| ?60-89 ?| ?Stage two ?| ? Decreased GFR ? + --+ --+ ------+| ?30-59 ?| ?Stage three ?| ? Stage three ? + --+ --+ ------+| ?15-29 ?| ?Stage four ? | ? Stage four ?+ ---+ ---+ -------+| ?<15 (or dialysis) ? ?| ?Stage five ? | ? Stage five ?+ ---+ ---+ -------+ *Each stage assumes the associated GFR level has been in effect for at least three months. ?Stages 1 to 5, with or without kidney disease, indicate chronic kidney disease. Notes: Determination of stages one and two (with eGFR >59mL/min/1.73 m2) requires estimation of kidney damage for at least three months as defined by structural or functional abnormalities of the kidney, manifested by either:Pathological abnormalities or Markers of kidney damage (including abnormalities in the composition of the blood or urine or abnormalities in imaging tests). Lab Interpretation Abnormal (test code = 49590-6) [facility] with [id number] 12:25:00 Test Item Value Reference Range Interpretation Comments WBC (test code = See_Comment H [Automated 6490-2) message] The system which generated this result transmit amando reference range : 4.30 - 11.10 10*3/?L. The reference range was not used to interpret this result as normal/abnormal . RBC (test code = See_Comment L [Automated 019-8) message] The system which generated this result transmit amando reference range : 3.93 - 5.25 10*6/?L. The reference range was not used to interpret this result as normal/abnormal . HGB (test code = 9.7 g/dL 11.6-15.0 L 718-7) HCT (test code = 29.5 % 35.7-45.2 L 4544-3) MCV (test code = 94.9 fL 80.6-95.5 787-2) MCH (test code = 31.2 pg 25.9-32.8 785-6) MCHC (test code = 32.9 g/dL 31.6-35.1 786-4) RDW-SD (test code = 44.0 fL 39.0-49.9 31637-2) RDW-CV (test code = 12.7 % 12.0-15.5 788-0) PLT (test code = See_Comment H [Automated 777-3) message] The system which generated this result transmit amando reference range : 166 - 358 10*3/ ?L. The reference range was not u sed to interpret th is result as normal/abnormal . MPV (test code = 10.8 fL 9.5-12.9 23945-7) NRBC/100 WBC (test See_Comment [Automat ed code = 4563975535) message] The system which generated this result transmit amando reference range : 0.0 - 10.0 /100 WBCs. The reference range was not used to interpret this result as normal/abnormal . NRBC x10^3 (test code <0.01 See_Comment [Auto mated = 3280787180) message] The system which generated this result transmit amando reference range : 10*3/?L. The reference range was not used to interpret this result as normal/abnormal . GRAN MAT (NEUT) % 84.1 % (test code = 770-8) IMM GRAN % (test code 0.80 % = 7143128055) LYMPH % (test code = 8.2 % 736-9) MONO % (test code = 6.3 % 5905-5) EOS % (test code = 0.2 % 713-8) BASO % (test code = 0.4 % 706-2) GRAN MAT x10^3(ANC) 14.61 10*3/uL 1.88-7.09 H (test code = 8034705246) IMM GRAN x10^3 (test 0.14 10*3/uL 0.00-0.06 H code = 2608277873) LYMPH x10^3 (test code 1.42 10*3/uL 1.32-3.29 = 731-0) MONO x10^3 (test code 1.10 10*3/uL 0.33-0.92 H = 742-7) EOS x10^3 (test code = 0.04 10*3/uL 0.03-0.39 711-2) BASO x10^3 (test code 0.07 10*3/uL 0.01-0.07 = 704-7) Lab Interpretation Abnormal (test code = 60407-2) [facility] - ONCE [id number] 07:57:26 Test Item Value Reference Range Interpretation Comments ABO & RH (test code A POSITIVE Performe d at [facility] = 20) Laboratory [facility] Blood [facility] [place] [address] s 25249Wkyy Free: [phone] A No. [id number] IAT (test code = Negative Performed a t [facility] 1185) Laboratory [facility] Blood [facility] [address] [place] [address] s 857[address]Cpth Free: [phone] A No. [id number] [facility]H [id number] 07:49:40 Test Item Value Reference Range Interpretation Comments ABO & RH (test code A Positive Performe d at [facility] = 20) Laboratory [facility] Blood [facility] [address] [place] [address] s 10375Oufh Free: [phone] A No. [id number] [facility] GLUCOSE (AUTOMATED)2020-06-24 23:27:00 Test Item Value Reference Range Interpretation Comments POCT GLU (test code = 7341219051) 179 mg/dL 70-110 H Lab Interpretation (test code = Abnormal 16390-0) [facility] GLUCOSE (AUTOMATED)2020-06-24 17:59:00 Test Item Value Reference Range Interpretation Comments POCT GLU (test code = 6263764819) 324 mg/dL 70-110 H Lab Interpretation (test code = Abnormal 69397-9) [facility] GLUCOSE (AUTOMATED)2020-06-24 13:53:00 Test Item Value Reference Range Interpretation Comments POCT GLU (test code = 2197192517) 444 mg/dL 70-110 H Lab Interpretation (test code = Abnormal 72975-9) [facility] with [id number] 12:32:00 Test Item Value Reference Range Interpretation Comments WBC (test code = See_Comment H [Automated 6690-2) message] The system which generated this result transmit amando reference range : 4.30 - 11.10 10*3/?L. The reference range was not used to interpret this result as normal/abnormal . RBC (test code = See_Comment L [Automated 789-8) message] The system which generated this result transmit amando reference range : 3.93 - 5.25 10*6/?L. The reference range was not used to interpret this result as normal/abnormal . HGB (test code = 8.8 g/dL 11.6-15.0 L 718-7) HCT (test code = 27.2 % 35.7-45.2 L 4544-3) MCV (test code = 94.4 fL 80.6-95.5 787-2) MCH (test code = 30.6 pg 25.9-32.8 785-6) MCHC (test code = 32.4 g/dL 31.6-35.1 786-4) RDW-SD (test code = 43.5 fL 39.0-49.9 99810-1) RDW-CV (test code = 12.5 % 12.0-15.5 788-0) PLT (test code = See_Comment H [Automated 777-3) message] The system which generated this result transmit amando reference range : 166 - 358 10*3/ ?L. The reference range was not u sed to interpret th is result as normal/abnormal . MPV (test code = 11.3 fL 9.5-12.9 65124-4) NRBC/100 WBC (test See_Comment [Automat ed code = 5135112831) message] The system which generated this result transmit amando reference range : 0.0 - 10.0 /100 WBCs. The reference range was not used to interpret this result as normal/abnormal . NRBC x10^3 (test code <0.01 See_Comment [Auto mated = 3006380183) message] The system which generated this result transmit amando reference range : 10*3/?L. The reference range was not used to interpret this result as normal/abnormal . GRAN MAT (NEUT) % 78.2 % (test code = 770-8) IMM GRAN % (test code 0.70 % = 5646385197) LYMPH % (test code = 11.5 % 736-9) MONO % (test code = 8.5 % 5905-5) EOS % (test code = 0.4 % 713-8) BASO % (test code = 0.7 % 706-2) GRAN MAT x10^3(ANC) 13.17 10*3/uL 1.88-7.09 H (test code = 0853351458) IMM GRAN x10^3 (test 0.12 10*3/uL 0.00-0.06 H code = 7892889511) LYMPH x10^3 (test code 1.93 10*3/uL 1.32-3.29 = 731-0) MONO x10^3 (test code 1.43 10*3/uL 0.33-0.92 H = 742-7) EOS x10^3 (test code = 0.07 10*3/uL 0.03-0.39 711-2) BASO x10^3 (test code 0.12 10*3/uL 0.01-0.07 H = 704-7) Lab Interpretation Abnormal (test code = 73646-1) [facility] Metabolic Panel (NA, K, CL, CO2, GLUCOSE, BUN, CREATININE, CA)2020-06-24 12:28:00 Test Item Value Reference Range Interpretation Comments NA (test code = 134 mmol/L 135-145 L 5744953844) K (test code = 4.5 mmol/L 3.5-5.0 6201468233) CL (test code = 103 mmol/L 98-108 9391021565) CO2 TOTAL (test code = 22 mmol/L 23-31 L 2455567109) AGAP (test code = 2-16 0216300092) BUN (test code = 20 mg/dL 7-23 0155439600) GLUCOSE (test code = 330 mg/dL 70-110 H 0972190445) CREATININE (test code = 1.25 mg/dL 0.50-1.04 H 2831873835) CALCIUM (test code = 8.8 mg/dL 8.6-10.6 3806837374) eGFR Calculation mL/min/1.73m2 (Non-) (test code = 9802508971) eGFR Calculation mL/min/1.73m2 () (test code = 8758850766) SAVITA (test code = SAVITA) Association of Glomerular Filtration Rate (GFR) and Staging of Kidney Disease* + --+ --+ ------+| GFR (mL/min/1.73 m2) ?| With Kidney Damage ?| ?Without Kidney Damage+ --------+ --------+ +| ?>90 ?| ?Stage one ?| ? Normal ?+ ---+ ---+ -------+| ?60-89 ?| ?Stage two ?| ? Decreased GFR ? + --+ --+ ------+| ?30-59 ?| ?Stage three ?| ? Stage three ? + --+ --+ ------+| ?15-29 ?| ?Stage four ? | ? Stage four ?+ ---+ ---+ -------+| ?<15 (or dialysis) ? ?| ?Stage five ? | ? Stage five ?+ ---+ ---+ -------+ *Each stage assumes the associated GFR level has been in effect for at least three months. ?Stages 1 to 5, with or without kidney disease, indicate chronic kidney disease. Notes: Determination of stages one and two (with eGFR >59mL/min/1.73 m2) requires estimation of kidney damage for at least three months as defined by structural or functional abnormalities of the kidney, manifested by either:Pathological abnormalities or Markers of kidney damage (including abnormalities in the composition of the blood or urine or abnormalities in imaging tests). Lab Interpretation Abnormal (test code = 11265-5) [facility] COVID [id number] 23:34:00COVID DMT InterpretationInterpretation/Recommendations: Molecular NAAT Tests for Active Infection with the SARS-CoV-2 Virus: The patient has currently tested negative for the SARS-CoV-2 virus that causes COVID-19 illness. This most likely indicates that the patient does not have an active infection with the SARS-CoV-2 virus. However, infection is not completely ruled out as the false negative rate for molecular NAAT testing using a nasopharyngeal sample can be up to 30%, mostly dependent on the timing of sample collection in relation to illness onset and any deficiencies in sampling techniques. If the patient has symptoms concerning for COVID-19 illness, a repeat NAAT test (PCR, Rapid ID Now, etc.) should be performed, at which time the SARS-CoV-2 virus - if present - may have reached a detectable viral load (usually peaking by the end of the first week of symptoms). Tests for IgM and/or IgGAntibodies to the SARS-CoV-2 Virus: If the patient develops COVID-19 illness in the future, testingfor IgM and IgG antibodies approximately 3 weeks after illness onset will likely indicate if the patient has produced antibodies to the SARS-CoV-2 virus. However, some patients may take longer to develop detectable antibodies, while some patients who were infected with SARS-CoV-2 may never develop antibodies. While antibodies to SARS-CoV-2 may provide some degree of immunity, at this time the strength and duration of the antibody response is unknown. ? ? Interpretation Result Comments:These interpretation comments are based upon all COVID-19 testing the patient has had at [facility], including molecular NAAT testing (more commonlyknown as PCR testing and Rapid ID Now testing) and antibody testing. It does not take into account any testing that a patient has had outside of the [facility] medical record. [facility] LABORATORY SERVICESCOVID VqanyfxPZED-RvW-0 Rapid ID NOW (no units) ? ? Date ? Value ? 06/22/2020 ? Not Detected ? [facility] SERVICESUnSt[facility]PO[facility]ATED)2020-06-23 22:07:00 Test Item Value Reference Range Interpretation Comments POCT GLU (test code = 8715370058) 152 mg/dL 70-110 H Lab Interpretation (test code = Abnormal 83005-9) [facility] TexasC-REACTIVE [id number] 20:59:00 Test Item Value Reference Range Interpretation Comments CRP (test code = 9721548801) 21.7 mg/dL <0.8 H Lab Interpretation (test code = Abnormal 18469-9) [facility] TexasGlycosylated Hemoglobin (A1C)2020-06-23 19:42:00 Test Item Value Reference Range Interpretation Comments HGB A1C (test code = 8.4 % 4.0-6.0 H 4548-4) SAVITA (test code = SAVITA) %A1C (NGSP) Interpretation (ADA)4.8-5.6 ? ? Normal or (Non-Diabetic Range)5.7-6.4 ? ? Increased Risk (Pre-Diabetic)>6.5 ?Diabetes Indicated Lab Interpretation Abnormal (test code = 40171-3) [facility]2020-06-23 17:34:00 Test Item Value Reference Range Interpretation Comments POCT GLU (test code = 9492842507) 114 mg/dL 70-110 H Lab Interpretation (test code = Abnormal 45171-3) [facility] GLUCOSE (AUTOMATED)2020-06-23 13:48:00 Test Item Value Reference Range Interpretation Comments POCT GLU (test code = 7768553973) 195 mg/dL 70-110 H Lab Interpretation (test code = Abnormal 68693-2) [facility] TexasXR FO[facility] 3+ VW [id number] 11:40:31 Third toe ulceration and swelling without osteomyelitis. Preliminary Report Dictated by Resident: León Gray I, Oral Morocho MD., have reviewed this study and agree with the abovereport.EXAM: XR FOOT 3+ VW RIGHT HISTORY: wound, pain, swelling COMPARISON: None FINDINGS: Radiographs of the right foot demonstrate ulceration and overlying swellingaround the lateral aspect of the third toe. No underlying soft tissue gasor bony erosions are seen. Diffuse osteopenia is noted. No acute fractureor dislocation is seen. Alignment is maintained. Joint space narrowing,marginal osteophytosis, subchondral sclerosis and cystic changes are notedin the midfoot. Calcaneal enthesophyte formation is seen. Diabetic typevascular calcifications are noted. Mild diffuse soft tissue swelling isseen. [facility], Radiant Results Inft User - 06/23/2020 5:41 AM CSTEXAM:XR FOOT 3+ VW RIGHTHISTORY:wound, pain, swelling COMPARISON:NoneFINDINGS: Radiographs of the right foot demonstrate ulceration and overlying swellingaround the lateral aspect of the third toe. No underlying soft tissue gasor bony erosions are seen. Diffuse osteopenia is noted. No acute fractureor dislocation is seen. Alignment is maintained. Joint space narrowing,marginal osteophytosis, subchondral sclerosis and cystic changes are notedin the midfoot.Calcaneal enthesophyte formation is seen. Diabetic typevascular calcifications are noted. Mild diffuse soft tissue swelling isseen.IMPRESSIONThird toe ulceration and swelling without osteomyelitis.Preliminary Report Dictated by Resident: Oral Soriano MD., have reviewed this study and agree with the abovereport.[facility] TexasLactic Acid Whole [id number] 10:18:00 Test Item Value Reference Range Interpretation Comments LACTIC ACID (test code = 1.37 mmol/L 0.30-2.60 8339684701) Lab Interpretation (test code = Normal 38495-3) [facility] with [id number] 04:22:00 Test Item Value Reference Range Interpretation Comments WBC (test code = See_Comment H [Automated 1890-2) message] The system which generated this result transmit amando reference range : 4.30 - 11.10 10*3/?L. The reference range was not used to interpret this result as normal/abnormal . RBC (test code = See_Comment L [Automated 669-8) message] The system which generated this result transmit amando reference range : 3.93 - 5.25 10*6/?L. The reference range was not used to interpret this result as normal/abnormal . HGB (test code = 10.9 g/dL 11.6-15.0 L 718-7) HCT (test code = 33.4 % 35.7-45.2 L 4544-3) MCV (test code = 92.5 fL 80.6-95.5 787-2) MCH (test code = 30.2 pg 25.9-32.8 785-6) MCHC (test code = 32.6 g/dL 31.6-35.1 786-4) RDW-SD (test code = 41.6 fL 39.0-49.9 01800-5) RDW-CV (test code = 12.2 % 12.0-15.5 788-0) PLT (test code = See_Comment H [Automated 777-3) message] The system which generated this result transmit amando reference range : 166 - 358 10*3/ ?L. The reference range was not u sed to interpret th is result as normal/abnormal . MPV (test code = 10.9 fL 9.5-12.9 82487-0) NRBC/100 WBC (test See_Comment [Automat ed code = 4283485168) message] The system which generated this result transmit amando reference range : 0.0 - 10.0 /100 WBCs. The reference range was not used to interpret this result as normal/abnormal . NRBC x10^3 (test code <0.01 See_Comment [Auto mated = 9760254237) message] The system which generated this result transmit amando reference range : 10*3/?L. The reference range was not used to interpret this result as normal/abnormal . GRAN MAT (NEUT) % 81.1 % (test code = 770-8) IMM GRAN % (test code 0.80 % = 5413387075) LYMPH % (test code = 9.7 % 736-9) MONO % (test code = 7.6 % 5905-5) EOS % (test code = 0.2 % 713-8) BASO % (test code = 0.6 % 706-2) GRAN MAT x10^3(ANC) 15.74 10*3/uL 1.88-7.09 H (test code = 3163911629) IMM GRAN x10^3 (test 0.15 10*3/uL 0.00-0.06 H code = 5641394997) LYMPH x10^3 (test code 1.87 10*3/uL 1.32-3.29 = 731-0) MONO x10^3 (test code 1.47 10*3/uL 0.33-0.92 H = 742-7) EOS x10^3 (test code = 0.03 10*3/uL 0.03-0.39 711-2) BASO x10^3 (test code 0.11 10*3/uL 0.01-0.07 H = 704-7) PLT ESTIMATE (test Increased Normal A code = 9317-9) Lab Interpretation Abnormal (test code = 67883-3) [facility] Metabolic Panel (NA, K, CL, CO2, GLUCOSE, BUN, CREATININE, CA)2020-06-23 04:15:00 Test Item Value Reference Range Interpretation Comments NA (test code = 133 mmol/L 135-145 L 2961888243) K (test code = 4.1 mmol/L 3.5-5.0 7339282484) CL (test code = 99 mmol/L 98-108 7429231203) CO2 TOTAL (test code = 26 mmol/L 23-31 2393776575) AGAP (test code = 2-16 4107763758) BUN (test code = 30 mg/dL 7-23 H 2086778796) GLUCOSE (test code = 374 mg/dL 70-110 H 0159604959) CREATININE (test code = 1.60 mg/dL 0.50-1.04 H 2417893321) CALCIUM (test code = 9.2 mg/dL 8.6-10.6 1205092932) eGFR Calculation mL/min/1.73m2 (Non-) (test code = 9603715742) eGFR Calculation mL/min/1.73m2 () (test code = 7101670619) SAVITA (test code = SAVITA) Association of Glomerular Filtration Rate (GFR) and Staging of Kidney Disease* + --+ --+ ------+| GFR (mL/min/1.73 m2) ?| With Kidney Damage ?| ?Without Kidney Damage+ --------+ --------+ +| ?>90 ?| ?Stage one ?| ? Normal ?+ ---+ ---+ -------+| ?60-89 ?| ?Stage two ?| ? Decreased GFR ? + --+ --+ ------+| ?30-59 ?| ?Stage three ?| ? Stage three ? + --+ --+ ------+| ?15-29 ?| ?Stage four ? | ? Stage four ?+ ---+ ---+ -------+| ?<15 (or dialysis) ? ?| ?Stage five ? | ? Stage five ?+ ---+ ---+ -------+ *Each stage assumes the associated GFR level has been in effect for at least three months. ?Stages 1 to 5, with or without kidney disease, indicate chronic kidney disease. Notes: Determination of stages one and two (with eGFR >59mL/min/1.73 m2) requires estimation of kidney damage for at least three months as defined by structural or functional abnormalities of the kidney, manifested by either:Pathological abnormalities or Markers of kidney damage (including abnormalities in the composition of the blood or urine or abnormalities in imaging tests). Lab Interpretation Abnormal (test code = 38861-4) [facility] TexasSEDIMENTATION [id number] 04:12:00 Test Item Value Reference Range Interpretation Comments ESR (test code = >120 See_Comment H [Automated message] 0623718496) The system [employer] generated this result transmitted ref erence range: 0 - 20 m m/HR. The reference r isabel was not used to interpret this result as normal/abnor mal. Lab Interpretation (test Abnormal code = 66663-2) [facility] TexasCOVID-[facility] (ID NOW RAPID TESTING)2020-06-23 03:49:00 Test Item Value Reference Range Interpretation Comments SARS-CoV-2 Rapid ID NOW Not Detected Not Detected (test code = 79222-5) SAVITA (test code = SAVITA) ID NOW COVID-19 Assay is an isothermal nucleic acid amplification test intended for the qualitative detection of nucleic acid from SARS-CoV-2 viral RNA in nasopharyngeal (HR CLERK) specimens. It is used under Emergency Use Authorization (EUA) by FDA. The limit of detection (LOD) of the assay is 125 Genome Equivalents/mL. A positive result is indicative of the presence of SARS-CoV-2 RNA. ?Clinical correlation with patient history and other diagnostic information is necessary to determine patient infection status. A negative (Not Detected) result does not preclude SARS-CoV-2 infection. In patients with clinical symptoms and other tests that are consistent with SARS-CoV-2 infection, negative results should be treated as presumptive negative and a new specimen should be tested with alternative PCR molecular test. Invalid: Please collect a new specimen for repeat patient testing if clinically indicated. Lab Interpretation Normal (test code = 03283-1) [facility] TexasLactic Acid Whole [id number] 03:26:00 Test Item Value Reference Range Interpretation Comments LACTIC ACID (test code = 2.43 mmol/L 0.50-2.20 H 8991524057) Lab Interpretation (test code = Abnormal 52833-9) [facility]"
[2021-06-27] MEDS ORDERED: PIPERACIL/TAZO 3.375 GM VIAL IV ONE (21:27)
[2021-06-27] MEDS ORDERED: NA CHLORIDE 0.9% 100 ML IV ONE (21:27)
[2021-06-27 21:33] LABS: Absolute Lymphocytes (CBC) 2.8 K/uL (0.7-4.9); Hematocrit 38.2 % (36.0-45.0); Lymphocytes % 18.8 % (15.3-44.8); MPV 8.2 fL (7.6-11.3); RBC Red Blood Cell Count 4.31 M/uL (3.86-4.86)
[2021-06-27 21:43] LABS: Potassium 4.1 mmol/L (3.5-5.1)
--- NOTE | 2021-06-27 21:52 | RAD REPORT ---
EXAM DESCRIPTION: RAD - Foot Left 3 View - 06/27/2021 9:42 pm CLINICAL HISTORY: Left Foot pain and swelling FINDINGS: No fracture or dislocation is seen. Marked osteoporosis. Edema within the subcutaneous tissues. No air within the tissues visualized. No bony destructive lesions seen. Amputation third phalanx
[2021-06-27] MEDS ORDERED: NA CHLORIDE 0.9% 1,000 ML ONE (22:15)
--- NOTE | 2021-06-27 22:28 | ER ---
Nurse's Notes [facility] Name: Jessica Khanna Age: 56 yrs Sex: Female : 1965 Arrival Date: 06/27/2021 Time: 20:30 Bed 19 Private MD: Diagnosis: Gangrene, not elsewhere classified;Cellulitis of left lower limb Presentation: 06/27 20:57 Chief complaint: Patient states: States "I need my other leg cut off", I finally ll3 decided to come in because I couldn't take the smell anymore, its been waking me up out of my sleep, big and second toe of left foot noted to be black and green with reddened skin to top of foot, states been going on for a few weeks. Coronavirus screen: Vaccine status: Patient reports receiving the 2nd dose of the covid vaccine. At this time, the client does not indicate any symptoms associated with coronavirus-19. Ebola Screen: No symptoms or risks identified at this time. Initial Sepsis Screen: Does the patient meet any 2 criteria? No. Patient's initial sepsis screen is negative. Does the patient have a suspected source of infection? Yes: Skin breakdown/wound. Risk Assessment: Do you want to hurt yourself or someone else? Patient reports no desire to harm self or others. Onset of symptoms is unknown. 20:57 Method Of Arrival: Wheelchair ll3 20:57 Acuity: ABHI 3 ll3 Triage Assessment: 21:05 General: Appears uncomfortable, Behavior is calm, cooperative. Pain: Denies pain. ll3 Neuro: Level of Consciousness is awake, alert, obeys commands, Oriented to person, place, time, situation. Respiratory: Respiratory effort is even, unlabored, Respiratory pattern is regular, symmetrical. Derm: Skin is black, yellow, Wound noted plantar aspect of left first toe, plantar aspect of left second toe, left first toe, left second toe, Left first toenail and Left second toenail Denies pain. 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 Swelling present in left foot. 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 - Social history:: Smoking status: Patient reports the use of cigarette tobacco products, smokes one pack cigarettes per day. - Family history:: not pertinent. - Hospitalizations: : No recent hospitalization is reported. Screenin:17 Abuse screen: Denies threats or abuse. Nutritional screening: No deficits noted. sf1 Tuberculosis screening: No symptoms or risk factors identified. Fall Risk Fall in past 12 months (25 points). Secondary diagnosis (15 points) impaired mobility, IV access (20 points). Ambulatory Aid- Crutches/Cane/Walker (15 pts). Gait- Impaired (20 pts.). Mental Status- Oriented to own ability (0 pts). Assessment: 21:18 Derm: necrotic great toe and 1st toe on the left foot. sf1 Vital Signs: 20:57 BP 182 / 83; Pulse 102; Resp 18; Temp 97.8(TE); Pulse Ox 100% on R/A; Weight 74.84 kg ll3 (R); Height 5 ft. 6 in. (167.64 cm) (R); Pain 0/10; 20:57 Body Mass Index 26.63 (74.84 kg, 167.64 cm) ll3 ED Course: 20:30 Patient arrived in ED. es 20:31 Sim Garay MD is Attending Physician. rn 20:42 Rachel Toribio RN is Primary Nurse. sf1 21:05 Triage completed. ll3 21:05 Arm band placed on Patient placed in an exam room, in a wheelchair, on pulse oximetry. ll3 21:17 Patient has correct armband on for positive identification. Bed in low position. Call 1 light in reach. 21:17 Inserted saline lock: 20 gauge in right antecubital area, using aseptic technique. sf1 Blood collected. 21:22 SARS-COV-2 RT PCR (Document "Date of Onset" if Symptomatic) Sent. sf1 21:22 CBC with Automated Diff Sent. sf1 21:22 Basic Metabolic Panel Sent. sf1 21:22 Wound Culture Sent. sf1 21:22 Procalcitonin Sent. sf1 21:22 Protime (+inr) Sent. sf1 21:22 Ptt, Activated Sent. sf1 21:22 Basic Metabolic Panel Sent. sf1 21:22 CBC with Diff Sent. sf1 21:42 XRAY Foot LEFT 3 View In Process Unspecified. EDMS 22:20 Blood Culture Adult (2) Sent. sf1 22:21 Lactate Sent. sf1 22:27 Zane Garay MD is Hospitalizing Provider. rn 22:45 Lower Extremity Artery Uni Ltd US In Process Unspecified. EDMS Administered Medications: 22:21 Drug: Zosyn (piperacillin-tazobactam) 3.375 grams Route: IVPB; Infused Over: 60 mins; sf1 Site: right antecubital; 22:21 Drug: NS 0.9% 500 ml Route: IV; Rate: bolus; Site: right antecubital; sf1 22:21 Drug: NS 0.9% 500 ml Route: IV; Rate: bolus; Site: right antecubital; sf1 23:22 Drug: vancoMYCIN 1 grams Route: IVPB; Infused Over: 2 hrs; Site: right antecubital; sf1 Point of Care Testing: Blood Glucose: 21:05 Blood Glucose: 164 mg/dL; ll3 Ranges: Outcome: 22:28 Decision to Hospitalize by Provider. rn 23:22 Patient left the ED. sf1 Signatures: Dispatcher [employer] EDMS Serena Kimble Roman, MD MD rn Loubet, Lynsea, RN RN 3 Rachel Toribio RN RN sf1
--- NOTE | 2021-06-27 22:28 | EDPHYS ---
Physician Documentation [facility] Name: Jessica Khanna Age: 56 yrs Sex: Female : 1965 Arrival Date: 06/27/2021 Time: 20:30 Bed 19 Private MD: ED Physician Sim Garay HPI: 06/27 21:02 This 56 yrs old Female presents to ER via Unassigned with complaints of leg and foot rn problem from sugar. 21:02 The patient presents with cellulitis of the left foot. Description: draining, rn erythematous, swollen. Onset: The symptoms/episode began/occurred 2 week(s) ago. Possible cause(s): unknown. Associated signs and symptoms: Pertinent positives: drainage, erythema, swelling. Modifying factors: the symptoms are alleviated by nothing, the symptoms are aggravated by squeezing the lesion and expressing the contents. Severity of symptoms: At their worst the symptoms were moderate, in the emergency department the symptoms are unchanged. The patient has experienced similar episodes in the past. The patient has not recently seen a physician. Pt reports 2 weeks of left foot pain/discoloration, was black to 1st and 2nd toes, now smelling bad and draining. No fever. No trauma. Has already had amputation of a toe on that foot as well as BKA RLE a few years ago. . 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 - Social history:: Smoking status: Patient reports the use of cigarette tobacco products, smokes one pack cigarettes per day. - Family history:: not pertinent. - Hospitalizations: : No recent hospitalization is reported. ROS: 21:02 Constitutional: Negative for fever, chills, and weight loss, Eyes: Negative for injury, rn pain, redness, and discharge, Neck: Negative for injury, pain, and swelling, Cardiovascular: Negative for chest pain, palpitations, and edema, Respiratory: Negative for shortness of breath, cough, wheezing, and pleuritic chest pain, Abdomen/GI: Negative for abdominal pain, nausea, vomiting, diarrhea, and constipation, Back: Negative for injury and pain, MS/Extremity: + pain and discoloration to Left foot Skin: Negative for injury, rash, and discoloration, Neuro: Negative for headache, weakness, and seizure. Exam: 21:02 Constitutional: This is a well developed, well nourished patient who is awake, alert, rn and in no acute distress. Head/Face: Normocephalic, atraumatic. Eyes: Periorbital areas with no swelling, redness, or edema. Cardiovascular: Tachycardic, regular Respiratory: No increased work of breathing, no retractions or nasal flaring. Abdomen/GI: soft, non-tender Skin: + dry gangrene of majority of left 1st and 2nd toes with wet gangrene proximal to that and erythema on dorsum of left foot. No streaking past ankle. + foul smell MS/ Extremity: RLE BKA, left foot without definite pulse palpated Neuro: Awake and alert, GCS 15, oriented to person, place, time, and situation. Vital Signs: 20:57 BP 182 / 83; Pulse 102; Resp 18; Temp 97.8(TE); Pulse Ox 100% on R/A; Weight 74.84 kg ll3 (R); Height 5 ft. 6 in. (167.64 cm) (R); Pain 0/10; 20:57 Body Mass Index 26.63 (74.84 kg, 167.64 cm) ll3 MDM: 20:31 Patient medically screened. rn 22:25 Differential diagnosis: cellulitis, dry gangrene, wet gangrene. Data reviewed: vital rn signs, nurses notes, lab test result(s), radiologic studies, ultrasound, and as a result, I will admit patient. Counseling: I had a detailed discussion with the patient and/or guardian regarding: the historical points, exam findings, and any diagnostic results supporting the discharge/admit diagnosis, lab results, radiology results, the need for further work-up and treatment in the hospital. Response to treatment: There is no appreciated change of the patient's symptoms at this time, and as a result, I will admit patient. Admission orders: after a detailed discussion of the patient's condition and case, the admit orders are written by me. 22:40 ED course: U/S shows monophasic flow down to DP, no occlusion per U/S tech, will admit rn for IV abx and likely amputation.. 06/27 20:47 Order name: CBC with Diff rn 06/27 20:47 Order name: Basic Metabolic Panel rn 06/27 20:47 Order name: Protime (+inr); Complete Time: 21:44 rn 06/27 20:47 Order name: Ptt, Activated; Complete Time: 21:44 rn 06/27 20:47 Order name: Procalcitonin; Complete Time: 22:08 rn 06/27 20:47 Order name: Blood Culture Adult (2) rn 06/27 20:47 Order name: XRAY Foot LEFT 3 View; Complete Time: 21:54 rn 06/27 20:47 Order name: SARS-COV-2 RT PCR (Document "Date of Onset" if Symptomatic); Complete Time: rn 22:08 06/27 20:48 Order name: CBC with Automated Diff; Complete Time: 21:44 EDMS 06/27 20:48 Order name: Basic Metabolic Panel; Complete Time: 21:54 EDMS 06/27 20:49 Order name: Lower Extremity Artery Uni Ltd US rn 06/27 21:07 Order name: Glucose, Ancillary Testing; Complete Time: 21:21 EDMS 06/27 21:09 Order name: Wound Culture rn 06/27 22:10 Order name: Lactate la1 06/27 20:47 Order name: IV Start; Complete Time: 21:22 rn Administered Medications: 22:21 Drug: Zosyn (piperacillin-tazobactam) 3.375 grams Route: IVPB; Infused Over: 60 mins; sf1 Site: right antecubital; 22:21 Drug: NS 0.9% 500 ml Route: IV; Rate: bolus; Site: right antecubital; sf1 22:21 Drug: NS 0.9% 500 ml Route: IV; Rate: bolus; Site: right antecubital; sf1 23:22 Drug: vancoMYCIN 1 grams Route: IVPB; Infused Over: 2 hrs; Site: right antecubital; sf1 Point of Care Testing: Blood Glucose: 21:05 Blood Glucose: 164 mg/dL; ll3 Ranges: Critical Glucose Levels:Adult <50 mg/dl or >400 mg/dl <40 mg/dl or >180 mg/dl Disposition Summary: 06/27/21 22:28 Hospitalization Ordered Hospitalization Status: Inpatient Admission rn Provider: Zane Garay rn Location: Telemetry/MedSurg (Inpatient) rn Condition: Stable rn Problem: new rn Symptoms: are unchanged rn Bed/Room Type: Standard rn Room Assignment: 222(06/27/21 22:54) mw Diagnosis - Gangrene, not elsewhere classified rn - Cellulitis of left lower limb rn Forms: - Medication Reconciliation Form rn - SBAR form rn Signatures: Dispatcher [employer] EDNikki Corona RN RN Sim Young MD MD rn Attema, Ulices, ESTIMATOR BINDING-C ESTIMATOR BINDING-Cla1 Magalis Rodarte RN RN ll3 Rachel Torbiio RN RN sf1 Corrections: (The following items were deleted from the chart) 22:54 22:28 rn klaudia
--- NOTE | 2021-06-27 23:03 | P.HP ---
Certification for Inpatient Patient admitted to: Inpatient With expected LOS: >2 Midnights Patient will require the following post-hospital care: None Practitioner: I am a practitioner with admitting privileges, knowledge of patient current condition, hospital course, and medical plan of care. Services: Services provided to patient in accordance with Admission requirements found in Title 42 Section 412.3 of the Code of Federal Regulations Patient History Date of Service: 06/27/21 Reason for admission: Gangrene History of Present Illness: 56-year-old female with history of diabetes mellitus type 1, CAD presents to the emergency department for diabetic foot wound. Patient reports over the course of the last number of weeks she has noticed a wound to her left great toe and second toe has been getting worse. Patient was evaluated here in the emergency department her labs were significant for white blood cell count of 15.1 creatinine 1.41 GFR 39 BUN 21 glucose 176. Patient's baseline GFR appears to be around 50. Patient does not follow a primary care doctor, had x-ray of the left foot which is pending official interpretation. On exam patient with gangrene apparent to the left great toe and second toe. ED provider wishes to admit for further evaluation and management. Allergies No Known Drug Allergies Allergy (Unverified 05/19/14 04:23) Unknown Home Medications: Insulin 70/30 NPH/Reg Human [Novolin 70/30*] 40 units SQ DAILY 01/02/12 Ferrous Sulfate 325 mg PO BID #0 tablet. 08/26/13 - Past Medical/Surgical History Diabetic: Yes -: CAD -: AR -: Anemia -: CKD 3 -: DM 1 -: D&C -: RLE KIMO Psychosocial/ Personal History: Patient lives at home with family - Family History Family History: Reviewed- Non-Contributory - Social History Smoking Status: Current every day smoker Counseled patient to stop smoking for: less than 10 minutes Smoking therapy provided: Yes Alcohol use: No CD- Drugs: No Caffeine use: Yes Place of Residence: Home Review of Systems 10-point ROS is otherwise unremarkable Musculoskeletal: As per HPI Integumentary: Other (Gangrene left great toe and second toe), As per HPI Physical Examination - Physical Exam General: Alert, In no apparent distress, Oriented x3 HEENT: Atraumatic, PERRLA, Mucous membr. moist/pink, EOMI, Sclerae nonicteric Neck: Supple, 2+ carotid pulse no bruit, No LAD, Without JVD or thyroid abnormality Respiratory: Clear to auscultation bilaterally, Normal air movement Cardiovascular: Regular rate/rhythm, Normal S1 S2 Gastrointestinal: Normal bowel sounds, No tenderness Musculoskeletal: No tenderness, Other (Right BKA) Integumentary: No rashes, Erythema, Warmth, Diabetic ulcer (Dry gangrene left great toe, second toe) Neurological: Normal speech, Normal strength at 5/5 x4 extr, Normal tone, Normal affect - Studies Laboratory Data (last 24 hrs) 06/27/21 21:10: PT 11.5, INR 1.00, APTT 39.2 H 06/27/21 21:10: Sodium 137, Potassium 4.1, BUN 21 H, Creatinine 1.41 H, Glucose 176 H 06/27/21 21:10: WBC 15.10 H, Hgb 12.7, Hct 38.2, Plt Count 623 H Assessment and Plan - Plan Assessment: Dry gangrene left great, second toe DM 1 PAD CAD Tobacco abuse Plan: Dry gangrene left great, second toe: Vancomycin, Levaquin, n.p.o., general surgery consult. MRI without contrast ordered for tomorrow. DM 1: A [facility] Accu-Chek, sliding scale insulin. Pt takes 30u 70/30 in AM at home, decrease to 15u for now. PAD: Arterial ultrasound performed in ER demonstrates monophasic flow throughout left lower extremity. CAD: Patient reports she was told that she should have a double bypass about 4 years ago but declined at that time. Patient had no intervention reports that "a part of her heart was ". Troponin negative patient without chest pain at this time. Tobacco abuse: Counseled on need for tobacco cessation, NicoDerm patch provided. DVT PPX: SCD Code status: Full Discharge Plan: Home Plan to discharge in: Greater than 2 days - Advance Directives Does patient have a Living Will: No Does patient have a Durable POA for Healthcare: No - Code Status/Comfort Care Code Status Assessed: Yes (Full) Critical Care: No Time Spent Managing Pts Care (In Minutes): 55
[2021-06-27] MEDS ORDERED: NA CHLORIDE 0.9% 250 ML ONE (23:06)
[2021-06-27] MEDS ORDERED: VANCOMYCIN 1 GM/VIAL ONE (23:06)
[2021-06-27] MEDS ORDERED: ONDANSETRON 4 MG/2 ML VIAL IV PRN (23:35)
[2021-06-27] MEDS ORDERED: GLUCAGON 1 MG/VIAL IM PRN (23:35)
[2021-06-27] MEDS ORDERED: Levofloxacin500mg IV 500 MG/100 ML BAG IV ONE (23:35)
[2021-06-27] MEDS ORDERED: VANCOMYCIN 1 GM in NA CHLORIDE 0.9% 250 ML IVPB ONE (23:35)
[2021-06-27] MEDS ORDERED: HYDRALAZINE HCL 20 MG/ML VIAL IV PRN (23:35)
[2021-06-27] MEDS ORDERED: D50W 25 GM/50 ML SYRINGE IV PRN (23:35)
[2021-06-27] MEDS ORDERED: MORPHINE 4 MG/ML SYR IV PRN (23:42)
[2021-06-28] MEDS ORDERED: ACETAMINOPHEN 500 MG TAB PO ONE (00:13)
[2021-06-28] MEDS: NA CHLORIDE 0.9% 1,000 ML IV SCH ×2 (00:46→08:42)
[2021-06-28 05:38] VITALS: BMI 26.6
[2021-06-28 05:58] LABS: Hematocrit 32.2 % (36.0-45.0); Lymphocytes % 23.1 % (15.3-44.8); RBC Red Blood Cell Count 3.59 M/uL (3.86-4.86)
[2021-06-28 06:21] LABS: Albumin 2.6 g/dL (3.4-5.0); Bilirubin Total 0.2 mg/dL (0.2-1.0); Magnesium 1.9 mg/dL (1.8-2.4); Potassium 3.9 mmol/L (3.5-5.1); Protein, Total 6.9 g/dL (6.4-8.2); Thyroid Stimulating Hormone 2.08 uIU/mL (0.360-3.740)
--- NOTE | 2021-06-28 06:37 | P.PN ---
Date of Service: 06/28/21
[2021-06-28] MEDS: INSULIN -REGULAR HUMAN 50 UNIT/0.5 ML ML SQ SCH ×2 (07:30→12:10)
--- NOTE | 2021-06-28 07:57 | RAD REPORT ---
EXAM DESCRIPTION: US - Lower Extremity Artery Uni Ltd - 06/27/2021 10:45 pm CLINICAL HISTORY: Leg pain COMPARISON: None FINDINGS: Color Doppler, grayscale, and spectral analysis was performed. Left lower extremity: The common femoral, superficial femoral and popliteal arteries demonstrate monophasic flow. The posterior tibial and dorsalis pedis arteries demonstrate monophasic waveforms. IMPRESSION: Monophasic arterial waveforms throughout the left lower extremity. This could be seconda ry to a more proximal stenosis such as at the iliacs. Could consider CTA of the abdomen pelvis (with or without runoff) to better evaluate.
[2021-06-28] MEDS ORDERED: INSULIN 70/30 100 UNITS/ML SQ SCH (08:00)
--- NOTE | 2021-06-28 08:33 | RAD REPORT ---
EXAM DESCRIPTION: MRI - Foot Left Wo Cont - 06/28/2021 8:13 am CLINICAL HISTORY: Eval for osteo COMPARISON: Foot Left 3 View dated 06/27/2021; Lower Extremity Artery Uni Ltd dated 06/27/2021; CT ABD P DIA W CONTRAST dated 10/01/2012 FINDINGS: MRI of the foot was obtained without contrast Postsurgical changes from partial amputation of the third toe. Abnormal T2 signal involving the first toe proximal and distal phalanx. At the second toe, there is a bnormal T2 signal within the distal, middle, and proximal phalanx. Probable nondisplaced fracture at the mid diaphysis of the fifth proximal phalanx. There is edema within the soft tissues. No abscess i dentified . IMPRESSION: Abnormal signal within the first and second toe phalanges. While the great toe proximal phalanx has a nondisplaced fracture (with or without osteomyelitis), signal in the other phalanges is concerning for osteomyelitis.
[2021-06-28] MEDS ORDERED: Levofloxacin 750mg IV 750 MG/150 ML BAG IV SCH (09:00)
[2021-06-28] MEDS ORDERED: NICOTINE 14 MG/PAT TD SCH (09:00)
[2021-06-28] MEDS ORDERED: KCL 20 MEQ/100 mL IVPB 20 MEQ/100 ML BAG IV SCH (09:00)
[2021-06-28 11:41] VITALS: O2SAT 98
[2021-06-28 12:09] LABS: Urine Appearance CLEAR (Clear); Urine Bilirubin NEGATIVE (Negative); Urine Blood NEGATIVE (Negative); Urine Color YELLOW (Yellow); Urine Glucose NEGATIVE (Negative); Urine Protein NEGATIVE (Negative); Urine Urobilinogen 0.2 mg/dL (0.2-1.0)
[2021-06-28 12:11] LABS: Urine Microscopic Reflex NO UMIC
[2021-06-28 12:34] VITALS: TEMP 98.2
[2021-06-28] MEDS ORDERED: CEFEPIME 2 GM in NA CHLORIDE 0.9% 100 ML IV SCH (13:00)
[2021-06-28 13:01] VITALS: BP 130/59
--- NOTE | 2021-06-28 20:39 | P.DS ---
Admission Date: 06/27/21 Discharge Date: 06/28/21 Disposition: AMA-LEFT AGAINST MEDICAL ADVIC Reason for Admission: Gangrene Consultations: General Surgery Cardiology Procedures: Problem List Dry gangrene left great, second toe with osteomyelitis DM 1 PAD CAD Tobacco abuse Brief History of Present Illness: 56-year-old female with history of diabetes mellitus type 1, CAD presents to the emergency department for diabetic foot wound. Patient reports over the course of the last number of weeks she has noticed a wound to her left great toe and second toe has been getting worse. Patient was evaluated here in the emergency department her labs were significant for white blood cell count of 15.1 creatinine 1.41 GFR 39 BUN 21 glucose 176. Patient's baseline GFR appears to be around 50. Patient does not follow a primary care doctor, had x-ray of the left foot which is pending official interpretation. On exam patient with gangrene apparent to the left great toe and second toe. ED provider wishes to admit for further evaluation and management. Hospital Course: Patient was treated with empiric antibiotics for diabetic ulcer / osteomyelitis. MRI was obtained and revealed findings consistent with osteomyelitis. General Surgery was consulted for amputation. Cardiology was consulted for cardiac clearance. Patient has h/o MIs in the past and underwent cardiac catheterization a few years ago and recommended to undergo CABG due to severe multi-vessel coronary atherosclerosis. Patient refused and never underwent CABG. Patient did not agree with general surgery's concerns and fired the general surgeon. She then requested to be transferred to [facility] where she underwent her right BKA ~1 year ago under local anesthesia. Unfortunately patient was denied transfer by [facility] admin. Patient became upset when told she was denied transfer. Discussed further options of consulting a different general surgeon at our facility, but she would still need to undergo cardiac clearance and anesthesia evaluation. Patient did not want to wait "for possibilities" and decided to leave against medical advice. I explained to the patient this is not recommended and she would have risk of worsening infection and possibility of even . She stated she was in contact with her vascular surgeon from [facility] already and will either follow up with them in the office or go to the ER tomorrow. Vital Signs/Physical Exam: Temp Pulse Resp BP Pulse Ox 98.2 F 106 H 19 130/59 L 99 06/28/21 12:00 06/28/21 13:01 06/28/21 12:00 06/28/21 13:01 06/28/21 12:00 General: Alert, In no apparent distress HEENT: Sclerae nonicteric Respiratory: Clear to auscultation bilaterally, Normal air movement Cardiovascular: No edema, Regular rate/rhythm Gastrointestinal: Soft and benign, Non-distended, No tenderness Musculoskeletal: Other (s/p R BKA) Integumentary: Other (dry gangrenous toes on left foot) Neurological: Normal speech, Normal affect Laboratory Data at Discharge: WBC 12.90 K/uL (4.3-10.9) H D 06/28/21 05:43 Hgb 10.7 g/dL (12.0-15.0) L 06/28/21 05:43 Hct 32.2 % (36.0-45.0) L D 06/28/21 05:43 Plt Count 503 K/uL (152-406) H 06/28/21 05:43 PT 11.5 SECONDS (9.5-12.5) 06/27/21 21:10 INR 1.00 06/27/21 21:10 APTT 39.2 SECONDS (24.3-36.9) H 06/27/21 21:10 Sodium 140 mmol/L (136-145) 06/28/21 05:43 Potassium 3.9 mmol/L (3.5-5.1) 06/28/21 05:43 BUN 18 mg/dL (7-18) 06/28/21 05:43 Creatinine 1.17 mg/dL (0.55-1.3) 06/28/21 05:43 Glucose 81 mg/dL (74-106) 06/28/21 05:43 Magnesium 1.9 mg/dL (1.8-2.4) 06/28/21 05:43 Total Bilirubin 0.2 mg/dL (0.2-1.0) 06/28/21 05:43 AST 14 U/L (15-37) L 06/28/21 05:43 ALT 13 U/L (12-78) 06/28/21 05:43 Alkaline Phosphatase 77 U/L (45-117) 06/28/21 05:43 Triglycerides 172 mg/dL (<150) H 06/28/21 05:43 Cholesterol 128 mg/dL (<200) 06/28/21 05:43 HDL Cholesterol 32 mg/dL (40-60) L 06/28/21 05:43 Cholesterol/HDL Ratio 4.00 06/28/21 05:43 Home Medications: Insulin 70/30 NPH/Reg Human [Novolin 70/30*] 30 units SQ DAILY 01/02/12 Followup: NONE,NONE [Primary Care Provider] - Time spent managing pt's care (in minutes): 45
[2021-06-28] MEDS ORDERED: VANCOMYCIN 1.5 GM in NA CHLORIDE 0.9% 500 ML IVPB SCH (21:00)
[2021-06-28] MEDS ORDERED: Levofloxacin 250mg IV 250 MG/50 ML BAG IV SCH (21:00)
[2021-06-28] MEDS ORDERED: VANCOMYCIN 1.25 GM in NA CHLORIDE 0.9% 250 ML IVPB SCH (21:00)
== END 2021-06-28 14:26 | disposition left against medical advice (07) | DRG 300 ==
LOC: ER 20:25 → ERHOLD 22:52 → 2ND 23:12
PROVIDERS: ADMIT Hospitalist; ATTEND Hospitalist
DX: E10.52 Type 1 diabetes mellitus with diabetic peripheral angiopathy with gangrene (principal); M86.8X8 Other osteomyelitis, other site; L03.116 Cellulitis of left lower limb; E10.69 Type 1 diabetes mellitus with other specified complication; E10.621 Type 1 diabetes mellitus with foot ulcer; L97.529 Non-pressure chronic ulcer of other part of left foot with unspecified severity; I25.10 Atherosclerotic heart disease of native coronary artery without angina pectoris; F17.210 Nicotine dependence, cigarettes, uncomplicated; I25.2 Old myocardial infarction; Z89.511 Acquired absence of right leg below knee; Z79.4 Long term (current) use of insulin; Z53.29 Procedure and treatment not carried out because of patient's decision for other reasons; Z20.822 Contact with and (suspected) exposure to COVID-19
CPT/HCPCS: 36415; 80048; 80053; 80061; 81003; 82947; 83605; 83735; 84145; 84439; 84443; 85025; 85610; 85730; 87040; 87070; 87205; 93926; 96374; 96375; 99284; J0360; J0692; J1815; J2405; J2543; J3370; J3480; J7030; J7040; J7050; U0003

== ENCOUNTER 2024-01-24 02:36 | Inpatient (IN) | payer SELFPAY ==
--- OUTSIDE RECORDS SUMMARY | 2024-01-24 02:40 | XMS REPORT | Continuity of Care Document ---
Author Name Unknown Address [address] [place] [address] [place], [place] [id number] [facility] Address [address] [place] [address] 1 [address] [place] [address] Care Team Providers Care Legal Receptionist Name Role Phone PCP, PATIENT DOES NOT HAVE A Primary Care Physic sanam Unavailable [email or web address] Attending Clinician UnavailMATEUS Chaney Attending Clinician ALEYDA Martin Attending Clinician Unavailryan Shay MD, Aleyda Attending Clinician [phone] Doctor Unassigned, Likely Attending Clinician U REBECCA Gonzales Attending Clinician UnavailMateus Guevara Attending Clinician + [phone] Eli Frazier DO Attending Clinician [phone] Adelia Aviles LVN Attending Clinician [phone] OLGA PÉREZ Attending Clinician UnavailShreyas Rausch MD Attending Clinician [phone] Olga Pérez MD Attending Clinician [phone] Renetta Patiño MD Attending Clinician +[phone] Rodriguez Heard MD, Phillip Attending Clinician [phone] JAYRO DIALLO Attending Clinician Unavailable Faculty, Vascular Surg Attending Clinician Sandor Herrera MD, Katy Holcomb Attending Clinician HAY GUZMAN Attending Clinician Unavailable Jie Olvera RN Attending Clinician [phone] Julian Miguel Attending Clinician [phone] [place]in [place], King B Attending Clinician [phone] Weston PATTEN, Alessia Attending Clinician [phone] Roselyn Estrada MD, Delonte Puentes Attending Clinician + [phone] DELONTE BAUM JR Attending Clinician UnavailPhillip Balderas MD Attending Clinician [phone] Mack PATTEN, Angela Horton Attending Clinician + [phone] [email or web address] Admitting Clinician UnavailALEYDA Parisi Admitting Clinician Og Shay MD, Aleyda Admitting Clinician [phone] RENETTA PATIÑO Admitting Clinician Unavailable Renetta Patiño MD Admitting Clinician [phone] Roselyn Estrada MD, Delonte Puentes Admitting Clinician + [phone] DELONTE BAUM JR Admitting Clinician [place] Payers Payer Name Policy Type Policy Number Effective Date Expirati on Date Source [employer] [id number] 2020 00:00:00 Problems Condition Name Condition Details Condition Category Status Onset Date Resolution Date Last Treatment Date Treating Clinician Comments Source Gangrene of toe of left foot Gangrene of toe of left foot Disease Active 07-26 00:00: 00 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 Diabetic foot ulcer associated with diabetes mellitus due to underlying condition, unspecifie d laterality , unspecifie d part of foot, unspecifie d ulcer stage Diabetic foot ulcer associated with diabetes mellitus due to underlying condition, unspecifie d laterality , unspecifie d part of foot, unspecifie d ulcer stage Disease Active 06-22 00:00: 00 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 Added automatic ally from request for surgery [id number] [facility] DNR (do not resuscitat e) discussion DNR (do not resuscitat e) discussion Disease Active 06-22 00:00: 00 [facility] Chronic neck pain Chronic neck pain Disease Active 05-28 00:00: 00 [facility] CAD (coronary artery disease) CAD (coronary artery disease) Disease Active 05-28 00:00: 00 [facility] History of CVA (cerebrova scular accident) History of CVA (cerebrova scular accident) Disease Active 2017-04 00:00: 00 [facility] Left-sided weakness Left-sided weakness Disease Active 2017-04 00:00: 00 [facility] Gallbladde r polyp Gallbladde r polyp Disease Active 2017-04 00:00: 00 Overview: Formattin g of this note might be different from the original. multiple [facility] History of acute myocardial infarction History of acute myocardial infarction Disease Active 01-17 00:00: 00 [facility] Tobacco use Tobacco use Disease Active 01-17 00:00: 00 [facility] DM (diabetes mellitus) DM (diabetes mellitus) Disease Active [facility] Allergies, Adverse Reactions, Alerts Allergy Name Allergy Type Status Severity Reaction(s) Onset Date Inactive Date Treating Clinician Comments Source NO KNOWN ALLERGIE S Drug Class Active [facility] Social History Social Habit Start Date Stop Date Quantity Comments Source History of tobacco use Cigarette Smoker [facility] Exposure to SARS-CoV-2 (event) 2021-09-23 00:00:00 2021-10-03 14:49:00 Not sure [facility] Alcohol intake 2021-10-03 00:00:00 2021-10-03 00:00:00 Current non-drinker of alcohol (finding) [facility] Tobacco use and exposure 2020-11-15 00:00:00 2020-11-15 00:00:00 Never used [facility] Cigarettes smoked current (pack per day) - Reported 2020-11-15 00:00:00 2020-11-15 00:00:00 [facility] Cigarette pack-years 2020-11-15 00:00:00 2020-11-15 00:00:00 [facility] Sex Assigned At 1965 00:00:00 1965 00:00:00 [facility] Smoking Status Start Date Stop Date Source Current every day smoker 2020-11-15 00:00:00 [facility] Medications Ordered Medication Name Filled Medication Name Start Date Stop Date Current Medication? Ordering Clinician Indication Dosage Frequency Signature (SIG) Comments Components Source doxycycline 150 mg tablet 09-19 00:00: 00 10-04 04:59 :00 No [id number] 150mg Take 1 tablet by mouth 2 (two) times daily for [address] [facility] ondansetron 4 mg tablet 08-04 00:00: 00 Yes [id number] 4mg Take 1 tablet by mouth every 8 (eight) hours as needed for Nausea and Vomiting (N/V) for up to [address] [facility] Vital Signs Vital Name Observation Time Observation Value Comments S ource Systolic blood pressure 2021-10-03 20:02:00 131 mm[Hg] [facility] Diastolic blood pressure 2021-10-03 20:02:00 74 mm[Hg] [facility] Heart rate 2021-10-03 20:02:00 84 /min [facility] Body temperature 2021-10-03 20:02:00 36.39 Luz Maria [facility] Body height 2021-10-03 20:02:00 167.6 cm [facility] Body weight 2021-10-03 20:02:00 63.504 kg [facility] BMI 2021-10-03 20:02:00 22.60 kg/m2 [facility] Oxygen saturation in Arterial blood by Pulse oximetry 2021-10-03 20:02:00 99 /min [facility] Procedures Procedure Date / Time Performed Performing Clinician Source [facility] STATEMENT OF PATIENT FINANCIAL RESPONSIBILITY 2021-10-03 05:01:00 Doctor Unassigned, Likely [facility] Encounters Start Date/Time End Date/Time Encounter Type Admission Type Attending Clinicians Care Facility Care Department Encounter ID Source 2023-02-26 00:00:00 2023-02-26 00:00:00 Outpatient [email or web address] diyala_S PRIV PRIV [id number] [facility] 2023-02-25 00:00:00 2023-02-25 00:00:00 Outpatient [email or web address] diyala_S PRIV PRIV [id number] [facility] 2022-01-09 13:00:00 2022-01-09 13:00:00 Outpatient MATEUS BRIGGS [facility] [id number] [facility] 2021-10-03 14:45:00 2021-10-03 16:46:35 Outpatient ALEYDA JEFFREY [facility] [id number] [facility] 2021-10-03 14:45:00 2021-10-03 16:46:35 Office Visit Aleyda Shay [facility] 1..840.114 350.1.13.10 4.2.7.2.[id number] [facility] 2021-10-03 00:00:00 2021-10-03 00:00:00 Orders Only Doctor Unassigned, Likely [facility] 1..840.114 350.1.13.10 4.2.7.2.[id number] [facility] 2021-09-26 16:45:00 2021-09-26 16:45:00 Outpatient ALEYDA JEFFREY [facility] [id number] [facility] 2021-09-26 00:00:00 2021-09-26 00:00:00 Outpatient REBECCA MICHELLE [facility] [id number] [facility] 2021-09-19 14:00:00 2021-09-19 15:22:46 Outpatient R ALEYDA SHAY [facility] [id number] [facility] 2021-09-19 14:00:00 2021-09-19 15:22:46 Office Visit Aleyda Shay [facility] 1..114 350.1.13.10 4.2.7.2.[id number] [facility] 2021-08-29 14:00:00 2021-08-29 14:40:01 [id number] 2021-08-29 14:00:00 2021-08-29 14:40:01 Office Visit Ross Boydrique [facility] 1..114 350.1.13.10 4.2.7.2.[id number] [facility] 2021-08-21 11:30:00 2021-08-21 12:42:34 Outpatient R FRIDA MATEUS [facility] [id number] [facility] 2021-08-21 11:30:00 2021-08-21 12:42:34 Office Visit Ross Boydrique [facility] 1..114 350.1.13.10 4.2.7.2.[id number] [facility] 2021-08-15 00:00:00 2021-08-15 00:00:00 Orders Only Doctor Unassigned, Likely [facility] 1.0.114 350.1.13.10 4.2.7.2.[id number] [facility] 2021-08-04 00:00:00 2021-08-04 00:00:00 Telephone Mateus Boyd [facility] 1..114 350.1.13.10 4.2.7.2.[id number] [facility] 2021-07-26 13:35:00 2021-08-02 20:23:00 Inpatient [facility] [id number] [facility] 2021-07-26 13:35:00 2021-08-02 20:23:00 Hospital Encounter Eli Frazier [facility] 1.2.840.114 350.1.13.10 4.2.7.2.[id number] [facility] 2021-07-30 15:25:00 2021-07-30 18:32:00 Surgery [facility] 1.2.840.114 350.1.13.10 4.2.7.2.[id number] [facility] 2021-07-29 13:00:00 2021-07-29 16:31:00 Surgery [facility] 1.2.840.114 350.1.13.10 4.2.7.2.[id number] [facility] 2021-07-26 13:35:00 2021-07-26 13:35:00 Inpatient X [facility] [id number] [facility] 2021-07-25 00:00:00 2021-07-25 00:00:00 Orders Only Doctor Unassigned, Likely [facility] 1.2.840.114 350.1.13.10 4.2.7.2.[id number] [facility] 2021-07-13 13:30:00 2021-07-13 14:00:00 Office Visit [facility] 1.2.840.114 350.1.13.10 4.2.7.2.[id number] [facility] 2021-07-13 13:30:00 2021-07-13 13:30:00 Outpatient R FRIDA MATEUS [facility] [id number] [facility] 2021-07-10 00:00:00 2021-07-10 00:00:00 Transition of Care Adelia Aviles 1.2.840.114 350.1.13.10 4.2.7.2.[id number] [facility] 2021-07-04 13:21:00 2021-07-07 16:00:00 Inpatient X OLGA P[facility]REZ [facility] [id number] [facility] 2021-07-04 13:21:00 2021-07-07 16:00:00 Hospital Encounter Shreyas Lemons Russell A Cintron, Nitza 1.2.840.1 [id number] 3.104.2.7 .3.745686 .[id number] [facility] 2021-07-07 14:28:32 2021-07-07 14:28:32 Anesthesia Event Phillip Calderón 1.2.840.1 10081.1.1 3.104.2.7 .3.143550 .[id number] [facility] 2021-07-04 00:00:00 2021-07-04 00:00:00 Travel 1.2.840.1 [id number] 3.104.2.7 .3.169804 .8 1.2.840.114 350.1.13.10 [address]2.7.[id number] [facility] 2021-06-26 00:00:00 2021-06-26 00:00:00 Telephone Aleyda Shay 1.2.840.1 [id number] 3.104.2.7 .3.116998 .[id number] [facility] 2021-02-07 00:00:00 2021-02-07 00:00:00 Telephone Aleyda Shay [facility] 1.114 350.1.13.10 4.2.7.2.686 [id number] [facility] [id number] [facility] 2021-01-17 00:00:00 2021-01-17 00:00:00 Orders Only Doctor Unassigned, Likely [facility] 1..114 350.1.13.10 4.2.7.2.[id number] [facility] 2021-01-05 00:00:00 2021-01-05 00:00:00 Outpatient R JAYRO DIALLO [facility] [id number] [facility] 2020-12-13 15:57:19 2020-12-13 17:12:03 Office Visit Aleyda Shay [facility] 1.114 350.1.13.10 4.2.7.2.[id number] [facility] 2020-12-13 15:45:00 2020-12-13 15:45:00 Outpatient R ALEYDA SHAY [facility] [id number] [facility] 2020-11-15 16:15:00 2020-11-15 16:15:00 Outpatient R ALEYDA SHAY [facility] [id number] [facility] 2020-11-15 15:59:50 2020-11-15 16:14:50 Office Visit Aleyda Shay [facility] 1.114 350.1.13.10 4.2.7.2.[id number] [facility] 2020-10-24 14:46:39 2020-10-24 16:39:13 Office Visit Faculty, Vascular Surg Katy Herrera [facility] 1.114 350.1.13.10 4.2.7.2.[id number] [facility] 2020-10-24 14:30:00 2020-10-24 14:30:00 Outpatient R [facility] [id number] [facility] 2020-09-20 10:14:02 2020-09-20 11:36:19 Office Visit Aleyda Shay [facility] 1.2.840.114 350.1.13.10 4.2.7.2.[id number] [facility] 2020-09-20 10:00:00 2020-09-20 10:00:00 Outpatient R ALEYDA SHAY [facility] [id number] [facility] 2020-09-05 09:50:00 2020-09-05 09:50:00 Outpatient R HAY GUZMAN [facility] [id number] [facility] 2020-08-30 10:30:00 2020-08-30 12:04:41 Office Visit Aleyda Shay [facility] 1.2.840.114 350.1.13.10 4.2.7.2.[id number] [facility] 2020-08-30 10:30:00 2020-08-30 10:30:00 Outpatient R ALEYDA SHAY [facility] [id number] [facility] 2020-08-23 00:00:00 2020-08-23 00:00:00 Telephone Aleyda Shay [facility] 1.2.840.114 350.1.13.10 4.2.7.2.[id number] [facility] 2020-08-16 09:40:00 2020-08-16 09:40:00 Outpatient R HAY GUZMAN [facility] [id number] [facility] 2020-08-16 08:43:59 2020-08-16 09:38:19 Office Visit Aleyda Shay [facility] 1.2840.114 350.1.13.10 4.2.7.2.[id number] [facility] 2020-08-16 08:45:00 2020-08-16 08:45:00 Outpatient R KENYA [facility] [id number] [facility] 2020-07-19 10:45:00 2020-07-19 10:45:00 Outpatient R KENYA [facility] [id number] [facility] 2020-07-19 08:57:08 2020-07-19 09:31:06 [facility] 1.2840.114 350.1.13.10 4.2.7.2.[id number] [facility] 2020-07-19 00:00:00 2020-07-19 00:00:00 Orders Only Doctor Unassigned, Likely [facility] 1.2840.114 350.1.13.10 4.2.7.2.[id number] [facility] 2020-07-11 00:00:00 2020-07-11 00:00:00 Patient Outreach Jie Olvera 1.2840.114 350.1.13.10 4.2.7.2.[id number] [facility] 2020-07-06 00:00:00 2020-07-06 00:00:00 Orders Only Doctor Unassigned, Likely [facility] 1.2840.114 350.1.13.10 4.2.7.2.[id number] [facility] 2020-07-06 00:00:00 2020-07-06 00:00:00 Telephone Julian Alba [facility] 1.2.840.114 350.1.13.10 4.2.7.2.[id number] [facility] 2020-07-05 00:00:00 2020-07-05 00:00:00 Patient Outreach Jie Olvera 1.2.840.114 350.1.13.10 4.2.7.2.[id number] [facility] 2020-07-04 00:00:00 2020-07-04 00:00:00 Transition of Care Adelia Aviles 1.2.840.114 350.1.13.10 4.2.7.2.[id number] [facility] 2020-06-22 21:05:00 2020-07-02 21:00:00 Hospital Encounter King Fontanez Mercy Silva, Michael B [facility] 1.840.114 350.1.13.10 4.2.7.2.[id number] [facility] 2020-06-22 21:05:00 2020-07-02 21:00:00 Inpatient [facility] [id number] [facility] 2020-07-02 00:00:00 2020-07-02 00:00:00 Telephone Phillip Bronson [facility] 1.2840.114 350.1.13.10 4.2.7.2.[id number] [facility] 2020-06-30 00:00:00 2020-06-30 00:00:00 Transition of Care dAelia Aviles 1.2.840.114 350.1.13.10 4.2.7.2.[id number] [facility] 2020-05-18 00:00:00 2020-05-18 00:00:00 Refill Angela Giron [facility] 1.2.840.114 350.1.13.10 4.2.7.2.[id number] [facility] 2020-04-26 00:00:00 2020-04-26 00:00:00 Refill Angela Giron [facility] Building 1.2.840.114 350.1.13.10 4.2.7.2.[id number] [facility] 2020-04-25 00:00:00 2020-04-25 00:00:00 Refill Angela Giron [facility] Building 1.2.840.114 350.1.13.10 4.2.7.2.[id number] [facility] 2020-02-08 00:00:00 2020-02-08 00:00:00 Refill Angela Giron [facility] 1.2.840.114 350.1.13.10 4.2.7.2.[id number] [facility] 2018-11-26 00:00:00 2018-11-26 00:00:00 Telephone Angela Giron [facility] 1.2.840.114 350.1.13.10 4.2.7.2.[id number] [facility]
[2024-01-24] MEDS ORDERED: ONDANSETRON 4 MG/2 ML VIAL ONE (03:16)
[2024-01-24] MEDS ORDERED: CEFTRIAXONE 1000 MG/VIAL ONE (03:16)
[2024-01-24] MEDS ORDERED: VANCOMYCIN 1 GM/VIAL ONE (03:16)
[2024-01-24] MEDS ORDERED: FAMOTIDINE 20 MG/2 ML VIAL IV ONE (03:17)
[2024-01-24] MEDS ORDERED: MORPHINE 4 MG/ML SYR ONE (03:17)
[2024-01-24] MEDS ORDERED: NA CHLORIDE 0.9% 1,000 ML ONE ×2 (03:18→03:19)
[2024-01-24] MEDS ORDERED: NA CHLORIDE 0.9% 50 ML ONE (03:18)
[2024-01-24] MEDS ORDERED: NA CHLORIDE 0.9% 250 ML ONE (03:19)
[2024-01-24 03:25] LABS: Absolute Basophils 0.1 K/uL (0-0.5); Absolute Monocytes 2.4 K/uL (0.1-1.3); Absolute Neutrophil 14.9 K/uL (1.8-8.0); Basophils % 0.3 % (0-1.3); Hematocrit 38.5 % (36.0-45.0); Hemoglobin 12.4 g/dL (12.0-15.0); Lymphocytes % 10.1 % (15.3-44.8); MCH 30.8 pg (27.0-35.0); MCHC 32.2 g/dL (32.0-36.0); MCV 95.6 fL (80-100); MPV 9.2 fL (7.6-11.3); Monocytes % 12.5 % (3.3-12.3); Neutrophils % 77.1 % (41.7-73.7); Platelets 304 thou/uL (152-406); RBC Red Blood Cell Count 4.03 M/uL (3.86-4.86); Red Cell Distribution Width 13.1 % (12.1-15.2)
[2024-01-24 03:34] LABS: Albumin 2.6 g/dL (3.4-5.0); Albumin/Globulin Ratio 0.7 (1.1-1.8); Anion Gap 9.1 mEq/L (5.0-15.0); Bilirubin Total 0.5 mg/dL (0.2-1.0); Globulin 3.8 g/dL (2.3-3.5); Potassium 4.1 mEq/L (3.5-5.1); Protein, Total 6.4 g/dL (6.4-8.2)
[2024-01-24 03:47] LABS: Thyroid Stimulating Hormone 1.1 uIU/mL (0.358-3.740)
[2024-01-24 03:56] LABS: Troponin High Sensitivity 105077.1 pg/mL (<58.9)
[2024-01-24 04:17] LABS: SARS-CoV-2 Antigen CONTROL BLUE LINE VIS/BG OK; SARS-CoV-2 Antigen Rapid Res Negative (Negative)
[2024-01-24 04:29] LABS: Specific Gravity 1.015 (1.005-1.030); Sqamous Epithelial <5 /HPF (None Seen); Urine Bacteria >50 /HPF (<20); Urine Bilirubin NEGATIVE (Negative); Urine Blood Negative (Negative); Urine Clarity Extremely Turbid (Clear); Urine Color Light-Orange (Yellow); Urine Culture Reflex Order REFLEXED; Urine Glucose NEGATIVE (Negative); Urine Ketones NEGATIVE (Negative); Urine Microscopic Reflex YN ORDER UMIC; Urine Mucus Slight /HPF (None Seen); Urine Nitrite NEGATIVE (Negative); Urine Protein 1+ (Negative); Urine RBC None Seen /HPF (None Seen); Urine Triple Phosphate Crystal Few /HPF (None Seen); Urine Urobilinogen Normal (Normal); Urine WBC 20-50 /HPF (<5); Urine pH 7.5 (5.0-7.0)
[2024-01-24] MEDS ORDERED: ASPIRIN 81 MG CHEWABLE TABLET ONE ×2 (04:49→04:58)
[2024-01-24] MEDS ORDERED: HEPARIN/D5W 25,000 UNIT/500 ML BAG IV ONE (04:50)
[2024-01-24] MEDS ORDERED: HEPARIN 5000 UNIT/ML 1 ML VIAL ONE (04:50)
[2024-01-24 05:21] LABS: PT Prothrombin Time 12.3 SECONDS (9.4-12.5); PTT, Activated Partial Thromb 33.1 SECONDS (24.3-36.9); Protime INR 1.1
--- NOTE | 2024-01-24 06:58 | RAD REPORT ---
PROCEDURE: CT Chest, Abdomen and Pelvis Without Intravenous Contrast CLINICAL INDICATION: The patient is 59 years old and is Female; Abdominal distention. TECHNIQUE: Axial computed tomography images of the chest, abdomen and pelvis without intravenous contrast. Sag ittal and coronal reformatted images were created and reviewed. This CT exam was performed using one or more of the following dose reduction techniques: automated exposure control, adjustment of t he mA and/or kV according to patient size, and/or use of iterative reconstruction technique. COMPARISON: None. FINDINGS: CHEST: LUNGS: Bandlike bibasilar subsegmental atelectasis. No additional focal consolidations. No mass. PLEURAL SPACE: No significant effusion. No pneumothorax. HEART: Trace pericardial effusion. Borderline left ventricular dilatation. ABDOMEN: LIVER: Unremarkable, allowing for lack of intravenous contrast. No mesenteric or portal venous gas. No focal hepatic parenchymal abnormality. GALLBLADDER AND BILE DUCTS: Unremarkable No calcified stones. No ductal dilation. PANCREAS: Diffusely atrophic appearance of the pancreatic parenchyma. No ductal dilation. No cystic o r solid pancreatic mass identified. SPLEEN: Unremarkable No splenomegaly. ADRENALS: Thickened appearance of the adrenals bilaterally with no focal mass or nodule identified. No mass. KIDNEYS AND URETERS: Unremarkable No obstructing stones. No hydronephrosis. STOMACH AND BOWEL: Unremarkable No obstruction. No mucosal thickening. No pneumatosis. PELVIS: APPENDIX: No findings to suggest acute appendicitis. BLADDER: Bladder wall thickening which may be due to the decompressed state of the bladder or due t o cystitis. No stones. REPRODUCTIVE: Unremarkable as visualized. CHEST, ABDOMEN and PELVIS: INTRAPERITONEAL SPACE: Unremarkable No significant fluid collection. No pneumoperitoneum. BONES/JOINTS: Remote fracture versus nonfusion of the superior 3rd and inferior to thirds of the st ernum demonstrated. No displaced or depressed rib fractures. No appreciable acute sternal or vertebral fractures. Osteopenic appearance of the bones. No dislocation. SOFT TISSUES: Unremarkable VASCULATURE: Mild calcified atherosclerosis of the thoracic aorta without aneurysmal dilatation. Mo derate calcified atherosclerosis of the abdominal aorta without aneurysmal dilatation. Dense multivessel coronary artery calcifications. No abdominal aortic aneurysmal dilatation. LYMPH NODES: Unremarkable No enlarged lymph nodes. IMPRESSION: 1. Bladder wall thickening which may be due to the decompressed state of the bladder or due to cyst itis. Correlation with urinalysis recommended. 2. Bibasilar subsegmental atelectasis. 3. Otherwise, allowing for lack of intravenous contrast, no acute abnormality of the chest, abdomen , or pelvis. 4. Chronic and incidental findings as above. Electronically signed by: Konstantin Kothari MD 01/24/2024 05:14 AM CDT RP Due to temporary technical issues with the PACS/OneShift reporting system, reports are being promise d by the in-house radiologist without review as a courtesy to ensure prompt reporting the interpreting radiologist is fully responsible for the content of the report. Transcribed Date/Time: 01/24/2024 6:57 AM
--- NOTE | 2024-01-24 07:20 | ER ---
Nurse's Notes [facility] Name: Jessica Khanna Age: 59 yrs Sex: Female : 1965 Arrival Date: 01/24/2024 Time: 02:36 Bed 17 Private MD: Diagnosis: NSTEMI, sepsis secondary to urinary tract infection, acute pyelonephritis,, Generalized weakness Presentation: 01/23 02:52 Chief complaint: Patient states: C/O Generalized weakness x 2 days. Denies N/V/D and mt4 headache or chest pain.. Per EMS "she thinks she's having a stroke or heart attack, assessment work up with EMS prior to arrival-EMS reports EKG negative and stroke work up negative. Pt alert and orientated, gets around with an electric wheelchair at baseline, lives at home with . PMH DM, Bilateral healed below knee amputation. DNR paperwork at bedside. Coronavirus screen: At this time, the client does not indicate any symptoms associated with coronavirus-19. Ebola Screen: No symptoms or risks identified at this time. Initial Sepsis Screen: Does the patient meet any 2 criteria? RR > 20 per min. Does the patient have a suspected source of infection? No. Patient's initial sepsis screen is negative. Risk Assessment: Do you want to hurt yourself or someone else? Patient reports no desire to harm self or others. Onset of symptoms was January 24, 2024 at 01:00. 02:52 Method Of Arrival: Stretcher mt4 02:52 Acuity: ABHI 3 mt4 03:00 Chief complaint:. Chief complaint:. mt4 Triage Assessment: 03:04 General: Appears in no apparent distress. comfortable, Behavior is calm, cooperative, mt4 Smells of cigarettes . Pain: Denies pain. EENT: Neuro: Level of Consciousness is Oriented to Measuring Machine Operator are equal bilaterally Weakness Speech slowed. Facial symmetry appears normal. Cardiovascular: Capillary refill < 3 seconds. Respiratory: Airway is patent Respiratory effort is even, unlabored, Respiratory pattern is regular, symmetrical. GI: Abdomen is non-distended. : Denies burning with urination. 03:04 Musculoskeletal: Amputation of Bilateral healed BKA Range of motion: intact in all mt4 extremities. Historical: - Allergies: 07:28 No Known Allergies; mb9 - PMHx: 03:00 diabetes mellitus ; Type 1; Myocardial infarction; mt4 - PSHx: 03:00 Lumpectomy of breast; R BKA; mt4 - Immunization history:: Adult Immunizations. - Infectious Disease History:: Denies. - Social history:: Smoking status: Patient reports the use of cigarette tobacco products, smokes one pack cigarettes per day. No barriers to communication noted. - Family history:: not pertinent. - Ebola Screening: : No symptoms or risks identified at this time. Screenin:10 [facility] ED Fall Risk Assessment (Adult) History of falling in the last 3 months, mt4 including since admission No falls in past 3 months (0 pts) Confusion or Disorientation No (0 pts) Intoxicated or Sedated No (0 pts) Impaired Gait Yes (1 pt) Mobility Assist Device Used Yes (1 pt) Altered Elimination No (0 pt) Score/Fall Risk Level 3 or more points = High Risk. Abuse screen: Denies injuries from another. Nutritional screening: No deficits noted. Tuberculosis screening: No symptoms or risk factors identified. Exposure risk/Travel Screening: None identified. Assessment: 04:10 General: Appears in no apparent distress. comfortable, Behavior is cooperative, mt4 appropriate for age, Reports fatigue for. Pain: Denies pain. Neuro: Level of Consciousness is awake, alert, obeys commands, Oriented to person, place, time, situation, Appropriate for age Measuring Machine Operator are equal bilaterally Weakness Gait is Speech slowed. Respiratory: Airway is patent. GI: Abdomen is non-distended, Abd is non tender. : Irwin in place Urine is cloudy, Reports foul smeling urine. Musculoskeletal: Amputation of bilaeral lower extremity BKA. 07:09 Pain: Denies pain. Neuro: Santana Agitation-Sedation Scale (RASS): 0 - Alert and Calm mb9 Level of Consciousness is awake, alert, obeys commands, Oriented to person, place, time, situation, Appropriate for age. Cardiovascular: Heart tones S1 S2 present Patient's skin is warm and dry. Rhythm is regular. Respiratory: Airway is patent Respiratory effort is even, unlabored, Respiratory pattern is regular, symmetrical. Derm: Skin is pink, warm \\T\\ dry. Vital Signs: 02:52 BP 111 / 55; Pulse 90; Resp 22; Temp 98.5; Pulse Ox 93% on R/A; Pain 0/10; mt4 04:44 Weight 66 kg (M); jb4 05:00 BP 112 / 52; Pulse 90; Resp 18; Pulse Ox 95% on R/A; mt4 06:00 BP 115 / 57; Pulse 84; Resp 16 S; Pulse Ox 93% on R/A; Pain 0/10; mt4 07:10 BP 106 / 52; Pulse 78; Resp 18; Pulse Ox 95% on R/A; mb9 02:52 Pain Scale: Adult mt4 06:00 Pain Scale: Adult mt4 Vitals: 04:10 Cardiac Rhythm Assessment Regular Sinus rhythm. mt4 James Coma Score: 04:10 Eye Response: spontaneous(4). Motor Response: obeys commands(6). Verbal Response: mt4 oriented(5). Total: 15. 04:10 Eye Response: spontaneous(4). Motor Response: obeys commands(6). Verbal Response: mt4 oriented(5). Total: 15. 05:36 Eye Response: spontaneous(4). Motor Response: obeys commands(6). Verbal Response: sp4 oriented(5). Total: 15. ED Course: 02:37 Patient arrived in ED. jj6 02:39 Enrike Cazares MD is Attending Physician. sp4 02:50 Christopher Baldwin, RN is Primary Nurse. mt4 02:54 First set of blood cultures drawn by dc. oe 03:00 Triage completed. mt4 03:00 Inserted saline lock: 22 gauge in right wrist, using aseptic technique. Blood oe collected. Flushed with 10 mL NS. 03:04 Arm band placed on right wrist. EKG completed in triage. Results shown to MD. EKG mt4 completed in triage. Results shown to MD. EKG completed in triage. Results shown to MD. 03:09 CT Chest Abdomen Pelvis W/O Contrast In Process Unspecified. EDMS 03:20 Second set of blood cultures drawn by dc. oe 03:32 Influenza Screen (a \\T\\ B) Sent. oe 03:32 SARS RAPID Sent. oe 03:32 CRP Sent. oe 03:32 Blood Culture Adult (2) Sent. oe 03:32 BNP Sent. oe 03:33 TSH Sent. oe 03:33 T4 Free Sent. oe 03:33 EKG done, by ED staff, reviewed by Enrike Cazares MD. oe 03:59 Notified ED physician of a critical lab result(s). Trop 105,077.1. jb4 04:10 No apparent distress. Resting quietly. Awaiting lab results, Awaiting CT Scan. mt4 04:10 Patient has correct armband on for positive identification. Call light in reach. Side mt4 rails up X 1. Adult w/ patient. Provided Education on: labs, medication, irwin insertions . Client placed on continuous cardiac and pulse oximetry monitoring. NIBP monitoring applied. site monitor on. Pulse ox on. NIBP on. Door closed. Lights dimmed. Warm blanket given. Pillow given. Verbal reassurance given. 04:10 No provider procedures requiring assistance completed. Irwin cath inserted, using mt4 sterile technique, 16 Fr., by me, by ED staff, balloon inflated, to gravity drainage, clamped. urine specimen collected. returned cloudy urine. Patient tolerated well. Patient maintains SpO2 saturation greater than 95% on room air. 05:37 Hemoglobin A1c Sent. lg3 06:04 Chest Single View XRAY In Process Unspecified. EDMS 07:10 Patient admitted, IV remains in place. mb9 07:18 Baltazar Forrest MD is Hospitalizing Provider. sp4 12:12 1158 CM spoke with NARCISA Jain, and received [facility]. 1217 CM reached out to Jen Salazar via telephone at [phone] and left voice mail, awaiting response 1221 CM reached out to [facility] at [phone] and spoke to La regarding charitable hospice arrangements. La states [facility] does consider charitable hospice arrangements, but the answer "would most likely be no" at this time due to being at their maximum for charitable hospice patients. La provided a phone number fro [facility] [phone], that she though might be able to help. 1228 CM received call back from Jen Salazar, from [facility], and Jen states they do in fact consider and accept charitable hospice patients; she asked that clinical documents be faxed over for review. 1250 CM sent clinical document via [employer]. Confirmed receipt through Jen Salazar at 1304. Jen states they are reviewing documents and will update CM when decision has been made. 1254 CM reached out to [facility] to inquire about charitable hospice arrangements, spoke to Meredith at [phone]. Meredith states they do consider charitable hospice arrangements however at this time, are unable to accept as they are at full capacity for the month on how many charitable hospice patients they can accept. 1256 CM reached out to [facility] at [phone], spoke to Linda and Linda states [facility] does not services the [place] or [place] area. 1308 CM updated provider NATALIIA Long on current pending acceptance, at ED provider station. 1330 CM received message from Jen Salazar via telephone, Jen ibarra [facility] is able to accept Iva Khanna as a charitable home hospice patient. Jen states she will provide ETA from hospice medical representative to arrive at hospital. Awaiting response. 1334 CM spoke with NARCISA Jain, to update on HCT acceptance. CM team will continue to monitor and coordinate care for this hospital stay. 17:46 1742 CM spoke with Jen from [facility] and she states it is likely the hospice ane nurse may not be able to assess and meet with patient until Saturday. 1746 CM spoke with provider, NATALIIA Long to update. 1748 CM spoke with patient and Chris at the bedside. Chris Mckeon from [facility] called him and set up a time to assess and set up hospice services at their home tonight at 1900. 1804 CM relayed update to provider NATALIIA Hernández, via telephone. Administered Medications: 03:15 Drug: NS 0.9% IV 1000 ml IV at 1 bolus Per protocol; 1000 mL bolus Route: IV; Rate: 1 mt4 bolus; Site: right wrist; 07:25 Follow up: Response: No adverse reaction; IV Status: Completed infusion mb9 03:15 Drug: Rocephin - Rocephin (cefTRIAXone) IVPB 1 grams IVPB once over 30 mins; (mix in 50 mt4 mL NS) Route: IVPB; Infused Over: 30 mins; Site: left forearm; 04:17 Follow up: Response: No adverse reaction; IV Status: Completed infusion mt4 04:00 Drug: vancoMYCIN IVPB 1 grams IVPB once over 2 hrs Route: IVPB; Infused Over: 2 hrs; mt4 Site: right wrist; 06:15 Follow up: Response: No adverse reaction; IV Status: Completed infusion mt4 04:18 Drug: Famotidine IVP 20 mg IVP once; dilute with 10 mL 0.9% NaCl; give over 2 minutes mt4 Route: IVP; Site: right wrist; 06:47 Follow up: Response: No adverse reaction mt4 04:20 Drug: Aspirin PO Chewable Tablet 324 mg PO once; 81 mg tablets x 4 Route: PO; mt4 06:15 Follow up: Response: No adverse reaction mt4 05:07 Drug: Heparin (GA Drip) 12 units/kg/[place] - ([place] [address] units, D5W IV 500 ml) IV at mt4 calculated rate Per protocol; Max initial rate 1000 units/hr {Co-Signature: [email or web address] (Bi Stewart RN).} Route: IV; Rate: calculated rate; Site: left forearm; 06:14 Follow up: Response: No adverse reaction mt4 07:25 Follow up: Response: No adverse reaction; IV Status: Infusion continued upon admission 9 05:08 Drug: Heparin (GA-Bolus No thrombolytic) - HEParin IVP 60 units/kg IVP once; Max 5000 mt4 units {Co-Signature: huy (Bi Stewart RN).} Route: IVP; Site: left forearm; 06:14 Follow up: Response: No adverse reaction mt4 06:16 Drug: NS 0.9% IV 1000 ml IV at 125 ml/hr continuous Route: IV; Rate: 125 ml/hr; Site: mt4 right wrist; 06:46 Follow up: Response: No adverse reaction; IV Status: Infusion continued mt4 06:45 Not Given (Patient Refused): ondansetron 4 mg IVP once; over 2 minutes mt4 06:46 Not Given (Patient Refused): morphineor iv 4 mg IVP once over 4 mins mt4 Medication: 04:10 VIS not applicable for this client. mt4 Outcome: 07:20 Decision to Hospitalize by Provider. sp4 07:37 Admitted to ER Hold. Please see [facility] for further documentation. mb9 07:37 Condition: stable 07:37 Instructed on the need for admit, 13:57 Patient left the ED. mb9 Signatures: Dispatcher [employer] EDMS Bi Stewart, RN RN jb4 Remi Fernandez Lacie, RN RN lg3 Aleyda Chi6 Jie Matthews, RN RN mb9 Enrike Cazares MD MD sp4 Christopher Baldwin RN RN mt4 Taylor Husain RN RN ane Bryson, James RN jb4 Corrections: (The following items were deleted from the chart) 03:04 02:52 Chief complaint: Patient states: C/O Generalized weakness x 2 days. Denies N/V/D mt4 and headache or chest pain.. Per EMS "she thinks she's having a stroke or heart attack, assessment work up with EMS prior to arrival-EMS reports EKG negative and stroke work up negative. Pt alert and orientated, gets around with an electric wheelchair at baseline, lives at home with . PMH DM, Bilateral healed below knee amputation. mt4 03:13 03:12 Inserted saline lock: 22 gauge in right wrist, using aseptic technique. Blood oe collected. Flushed with 10 mL NS oe 04:10 03:04 Neuro: Level of Consciousness is Oriented to Measuring Machine Operator are equal bilaterally Weakness mt4 Speech is slurred, Facial symmetry appears normal, mt4 07:19 07:10 Pulse 78bpm; Resp 18bpm; Pulse Ox 95% RA; mb9 mb9
--- NOTE | 2024-01-24 07:20 | EDPHYS ---
Physician Documentation [facility] Name: Jessica Khanna Age: 59 yrs Sex: Female : 1965 Arrival Date: 01/24/2024 Time: 02:36 Bed 17 Private MD: ED Physician Enrike Cazares HPI: 01/23 02:39 This 59 yrs old Other Race Female presents to ER via Unassigned with complaints of sp4 General Weakness. 05:36 59-year-old female presents with 2 days of generalized weakness and feeling unwell. sp4 Also reported foul-smelling urine denied chest pain. Historical: - Allergies: 07:28 No Known Allergies; mb9 - PMHx: 03:00 diabetes mellitus ; Type 1; Myocardial infarction; mt4 - PSHx: 03:00 Lumpectomy of breast; R BKA; mt4 - Immunization history:: Adult Immunizations. - Infectious Disease History:: Denies. - Social history:: Smoking status: Patient reports the use of cigarette tobacco products, smokes one pack cigarettes per day. No barriers to communication noted. - Family history:: not pertinent. - Ebola Screening: : No symptoms or risks identified at this time. ROS: 05:36 Constitutional: Negative for fever, chills, and weight loss, positive for generalized sp4 weakness, positive for foul-smelling urine 05:36 All other systems are negative, Exam: 05:36 Constitutional: This is a well developed, well nourished patient who is awake, alert, sp4 ill-appearing female generalized pallor, bilateral lower extremity below-knee amputation Head/Face: Normocephalic, atraumatic. Eyes: Pupils equal round and reactive to light, extra-ocular motions intact. Lids and lashes normal. Conjunctiva and sclera are not injected. Cornea within normal limits. Periorbital areas with no swelling, redness, or edema. ENT: Nares patent. No nasal discharge, no septal abnormalities noted. Tympanic membranes are normal and external auditory canals are clear. Oropharynx with no redness, swelling, or masses, exudates, or evidence of obstruction, uvula midline. Mucous membranes moist. Neck: Trachea midline, no thyromegaly or masses palpated, and no cervical lymphadenopathy. Supple, full range of motion without nuchal rigidity, or vertebral point tenderness. Chest/axilla: Normal chest wall appearance and motion. Nontender with no deformity. No lesions are appreciated. Cardiovascular: Regular rate and rhythm with a normal S1 and S2. No gallops, murmurs, or rubs. Normal PMI, no JVD. No pulse deficits. Respiratory: Lungs have equal breath sounds bilaterally, clear to auscultation and percussion. No rales, rhonchi or wheezes noted. No increased work of breathing, no retractions or nasal flaring. Abdomen/GI: Soft, with normal bowel sounds. No distension or tympany. No guarding or rebound. No evidence of tenderness throughout. Back: No spinal tenderness. No costovertebral tenderness. Skin: Warm, dry with normal turgor. Normal color with no rashes, no lesions, and no evidence of cellulitis. MS/ Extremity: Pulses equal, no cyanosis. Neurovascular intact. Full, normal range of motion. Neuro: Awake and alert, GCS 15, oriented to person, place, time, and situation. Cranial nerves II-XII grossly intact. Motor strength 5/5 in all extremities. Sensory grossly intact. Psych: Awake, alert, with orientation to person, place and time. Behavior, mood, and affect are within normal limits 07:20 ECG was reviewed by the Attending Physician. EKG 0 641 normal sinus rhythm rate [address] elevation or depression. Vital Signs: 02:52 BP 111 / 55; Pulse 90; Resp 22; Temp 98.5; Pulse Ox 93% on R/A; Pain 0/10; mt4 04:44 Weight 66 kg (M); jb4 05:00 BP 112 / 52; Pulse 90; Resp 18; Pulse Ox 95% on R/A; mt4 06:00 BP 115 / 57; Pulse 84; Resp 16 S; Pulse Ox 93% on R/A; Pain 0/10; mt4 07:10 BP 106 / 52; Pulse 78; Resp 18; Pulse Ox 95% on R/A; mb9 02:52 Pain Scale: Adult mt4 06:00 Pain Scale: Adult mt4 James Coma Score: 04:10 Eye Response: spontaneous(4). Motor Response: obeys commands(6). Verbal Response: mt4 oriented(5). Total: 15. 04:10 Eye Response: spontaneous(4). Motor Response: obeys commands(6). Verbal Response: mt4 oriented(5). Total: 15. 05:36 Eye Response: spontaneous(4). Motor Response: obeys commands(6). Verbal Response: sp4 oriented(5). Total: 15. MDM: 02:50 Patient medically screened. sp4 05:34 ED course: PROCEDURE: CT Chest, Abdomen and Pelvis Without Intravenous Contrast sp4 CLINICAL INDICATION: The patient is 59 years old and is Female; Abdominal distention. TECHNIQUE: Axial computed tomography images of the chest, abdomen and pelvis without intravenous contrast. Sagittal and coronal reformatted images were created and reviewed. This CT exam was performed using one or more of the following dose reduction techniques: automated exposure control, adjustment of the mA and/or kV according to patient size, and/or use of iterative reconstruction technique. COMPARISON: None. FINDINGS: CHEST: LUNGS: Bandlike bibasilar subsegmental atelectasis. No additional focal consolidations. No mass. PLEURAL SPACE: No significant effusion. No pneumothorax. HEART: Trace pericardial effusion. Borderline left ventricular dilatation. ABDOMEN: LIVER: Unremarkable, allowing for lack of intravenous contrast. No mesenteric or portal venous gas. No focal hepatic parenchymal abnormality. GALLBLADDER AND BILE DUCTS: Unremarkable No calcified stones. No ductal dilation. PANCREAS: Diffusely atrophic appearance of the pancreatic parenchyma. No ductal dilation. No cystic or solid pancreatic mass identified. SPLEEN: Unremarkable No splenomegaly. ADRENALS: Thickened appearance of the adrenals bilaterally with no focal mass or nodule identified. No mass. KIDNEYS AND URETERS: Unremarkable No obstructing stones. No hydronephrosis. STOMACH AND BOWEL: Unremarkable No obstruction. No mucosal thickening. No pneumatosis. PELVIS: APPENDIX: No findings to suggest acute appendicitis. BLADDER: Bladder wall thickening which may be due to the decompressed state of the bladder or due to cystitis. No stones. REPRODUCTIVE: Unremarkable as visualized. CHEST, ABDOMEN and PELVIS: INTRAPERITONEAL SPACE: Unremarkable No significant fluid collection. No pneumoperitoneum. BONES/JOINTS: Remote fracture versus nonfusion of the superior 3rd and inferior to thirds of the sternum demonstrated. No displaced or depressed rib fractures. No appreciable acute sternal or vertebral fractures. Osteopenic appearance of the bones. No dislocation. SOFT TISSUES: Unremarkable VASCULATURE: Mild calcified atherosclerosis of the thoracic aorta without aneurysmal dilatation. Moderate calcified atherosclerosis of the abdominal aorta without aneurysmal dilatation. Dense multivessel coronary artery calcifications. No abdominal aortic aneurysmal dilatation. LYMPH NODES: Unremarkable No enlarged lymph nodes. IMPRESSION: 1. Bladder wall thickening which may be due to the decompressed state of the bladder or due to cystitis. Correlation with urinalysis recommended. 2. Bibasilar subsegmental atelectasis. 3. Otherwise, allowing for lack of intravenous contrast, no acute abnormality of the chest, abdomen, or pelvis. 4. Chronic and incidental findings as above. Electronically signed by: Konstantin Kothari MD 01/24/2024 05:14 AM. 07:20 Differential Diagnosis altered mental status, sepsis, flu, NSTEMI. Data reviewed: vital sp4 signs, nurses notes, EMS record, old medical records, lab test result(s), EKG, radiologic studies, CT scan, plain films. Consideration of Admission/Observation Escalation of care including admission/observation considered. ED course: Patient informed us that she wants UTI treated but does not desire intervention for her NSTEMI. 01/23 02:45 Order name: CBC with Diff; Complete Time: 04:01/23 02:45 Order name: CMP; Complete Time: 04:01/23 02:45 Order name: Lipase; Complete Time: 04:01/23 02:45 Order name: Urinalysis w/ reflexes; Complete Time: 04:39 01/23 02:46 Order name: CRP; Complete Time: 04:01/23 02:46 Order name: Blood Culture Adult (2) 01/23 02:46 Order name: Lactate w/ 2H reflex if indic.; Complete Time: 04:01/23 02:47 Order name: Troponin High Sensitivity; Complete Time: 04:01/23 02:48 Order name: BNP; Complete Time: 04:01/23 02:48 Order name: TSH; Complete Time: 04:01/23 02:48 Order name: T4 Free; Complete Time: 04:01/23 02:49 Order name: SARS RAPID; Complete Time: 04:01/23 02:49 Order name: Influenza Screen (a \T\ B); Complete Time: 04:01/23 02:49 Order name: Hemoglobin A1c 01/23 04:35 Order name: Urine Culture [facility]SC 01/23 04:39 Order name: Ptt, Activated; Complete Time: 05:25 4 01/23 04:39 Order name: PT-INR; Complete Time: 05:25 4 01/23 09:02 Order name: Ptt, Activated 01/23 09:02 Order name: Troponin High Sensitivity 01/23 12:21 Order name: Glucose, Ancillary Testing [facility]SC 01/23 13:28 Order name: PTT, Activated Partial Thromb [facility]SC 01/23 02:46 Order name: CT Chest Abdomen Pelvis W/O Contrast [facility] 01/23 05:36 Order name: Chest Single View XRAY [facility] 01/23 06:34 Order name: EKG; Complete Time: 06:34 [facility] 01/23 09:01 Order name: Social Service Consult [facility]SC 01/23 09:02 Order name: CONS Physician Consult [facility] 01/23 02:46 Order name: IV Saline Lock; Complete Time: 04:19 4 01/23 02:46 Order name: Labs collected and sent; Complete Time: 04:19 [facility] 01/23 02:46 Order name: Briscoe; Complete Time: 04:19 4 01/23 02:47 Order name: EKG - Nurse/Tech; Complete Time: 03:32 sp4 01/23 06:34 Order name: EKG - Nurse/Tech; Complete Time: 06:49 sp4 EC:20 Rate is 84 beats/min. Rhythm is regular, Normal Sinus Rhythm. QRS [place] is Normal. MO sp4 interval is normal. QRS interval is normal. QT interval is normal. No Q waves. Clinical impression: No evidence of ischemia. Interpreted by me. Reviewed by me. Administered Medications: 03:15 Drug: NS 0.9% IV 1000 ml IV at 1 bolus Per protocol; 1000 mL bolus Route: IV; Rate: 1 mt4 bolus; Site: right wrist; 07:25 Follow up: Response: No adverse reaction; IV Status: Completed infusion mb9 03:15 Drug: Rocephin - Rocephin (cefTRIAXone) IVPB 1 grams IVPB once over 30 mins; (mix in 50 mt4 mL NS) Route: IVPB; Infused Over: 30 mins; Site: left forearm; 04:17 Follow up: Response: No adverse reaction; IV Status: Completed infusion mt4 04:00 Drug: vancoMYCIN IVPB 1 grams IVPB once over 2 hrs Route: IVPB; Infused Over: 2 hrs; mt4 Site: right wrist; 06:15 Follow up: Response: No adverse reaction; IV Status: Completed infusion mt4 04:18 Drug: Famotidine IVP 20 mg IVP once; dilute with 10 mL 0.9% NaCl; give over 2 minutes mt4 Route: IVP; Site: right wrist; 06:47 Follow up: Response: No adverse reaction mt4 04:20 Drug: Aspirin PO Chewable Tablet 324 mg PO once; 81 mg tablets x 4 Route: PO; mt4 06:15 Follow up: Response: No adverse reaction mt4 05:07 Drug: Heparin ([place] Drip) 12 units/kg/hr - ([place] [address] units, D5W IV 500 ml) IV at mt4 calculated rate Per protocol; Max initial rate 1000 units/hr {Co-Signature: huy (Bi Stewart RN).} Route: IV; Rate: calculated rate; Site: left forearm; 06:14 Follow up: Response: No adverse reaction mt4 07:25 Follow up: Response: No adverse reaction; IV Status: Infusion continued upon admission 9 05:08 Drug: Heparin (IL-Bolus No thrombolytic) - HEParin IVP 60 units/kg IVP once; Max 5000 mt4 units {Co-Signature: [email or web address] (Bi Stewart RN).} Route: IVP; Site: left forearm; 06:14 Follow up: Response: No adverse reaction mt4 06:16 Drug: NS 0.9% IV 1000 ml IV at 125 ml/hr continuous Route: IV; Rate: 125 ml/hr; Site: mt4 right wrist; 06:46 Follow up: Response: No adverse reaction; IV Status: Infusion continued mt4 06:45 Not Given (Patient Refused): ondansetron 4 mg IVP once; over 2 minutes mt4 06:46 Not Given (Patient Refused): morphineor iv 4 mg IVP once over 4 mins mt4 Disposition Summary: 01/24/24 07:20 Hospitalization Ordered Notes: Hospitalization Status: Inpatient Admission sp4 Provider: Baltazar Forrest sp4 [facility] sp4 Condition: Serious sp4 Problem: new sp4 Symptoms: are unchanged sp4 Bed/Room Type: Standard sp4 Room Assignment: 214(01/24/24 12:17) em1 Diagnosis - NSTEMI, sepsis secondary to urinary tract infection, acute pyelonephritis,, sp4 Generalized weakness Forms: - Medication Reconciliation Form sp4 - SBAR form sp4 - Leadership Thank You Letter sp4 Signatures: Dispatcher [employer] EDJavier Parkinson em1 Jie Matthews RN RN mb9 Enrike Cazares MD MD sp4 Christopher Baldwin RN RN mt4 Bi Stewart RN jb4 Corrections: (The following items were deleted from the chart) 02:47 02:47 C-REACTIVE PROTEIN+C.LAB.BRZ ordered. EDMS EDMS 02:47 02:47 BLOOD CULTURE*+BA.LAB.BRZ ordered. EDMS EDMS 02:47 02:47 LACTATE+C.LAB.BRZ ordered. EDMS EDMS 02:48 02:48 Troponin High Sensitivity+C.LAB.BRZ ordered. EDMS EDMS 02:49 02:49 SARS-COV-2 Antigen Rapid+I.LAB.BRZ ordered. EDMS EDMS 02:49 02:49 Influenza Screen (A \T\ B)+BA.LAB.BRZ ordered. EDMS EDMS 12:17 07:20 sp4 em1 13:02 13:02 PTT, ACTIVATED+COAG.LAB.BRZ ordered. EDMS EDMS
--- NOTE | 2024-01-24 07:49 | RAD REPORT ---
INDICATION: CHEST PAIN TECHNIQUE: chest 1 view. COMPARISON: None FINDINGS: Cardiovascular and mediastinum: The cardiac silhouette is within normal limits in size. The central v ascularity is within normal limits. Mediastinum is within normal limits. Lungs and pleural spaces: Scarring/atelectasis. No focal consolidation. No sign of pleural effusion. No pneumothorax. Bones: No significant findings Soft tissues: No significant findings Other: No significant findings IMPRESSION: No acute cardiopulmonary disease. Electronically signed by: Nabil Gentile MD 01/24/2024 07:13 AM CDT RP Due to temporary technical issues with the PACS/Done In :60 Seconds reporting system, reports are being promise d by the in-house radiologist without review as a courtesy to ensure prompt reporting the interpreting radiologist is fully responsible for the content of the report. Transcribed Date/Time: 01/24/2024 7:49 AM
[2024-01-24] MEDS ORDERED: MAGNESIUM HYDROXIDE 8% 30 ML PO PRN (08:50)
[2024-01-24] MEDS: NA CHLORIDE 0.9% 1,000 ML IV SCH ×2 (09:00→09:55)
[2024-01-24 09:19] VITALS: BMI 28.3
--- NOTE | 2024-01-24 10:07 | P.HP ---
Certification for Inpatient Patient admitted to: Inpatient With expected LOS: >2 Midnights Patient will require the following post-hospital care: Hospice Practitioner: I am a practitioner with admitting privileges, knowledge of patient current condition, hospital course, and medical plan of care. Services: Services provided to patient in accordance with Admission requirements found in Title 42 Section 412.3 of the Code of Federal Regulations <Mercedes Gillespie - Last Filed: 01/24/24 10:00> Patient History Date of Service: 01/24/24 Primary Care Provider: None Reason for admission: NSTEMI, UTI, sepsis History of Present Illness: Ms. Jessica Khanna is a 59-year-old female with CAD status post ID in 2010, COPD, and diabetes. She is status post bilateral below the knee amputations. She takes 70/30 insulin 30 units every morning but does not see a PCP to manage her health and she takes no other medicines. She states she lives at home with her who is unable to help much. She has a motorized wheelchair but no home health or help at home. She states all of her loved ones during COV and she prays every day that she can go home. She has a DNR at bedside. She states she presented to the emergency department because her insisted on calling EMS as she had been so weak over the last 2 days that she was unable to sit on her own. On assessment in the emergency department she does admit to some indigestion and shortness of breath over the last couple of days. Her wor kup reveals a non-STEMI with a troponin greater than 105,000, sepsis with an elevated white count, and a urinary tract infection. Dr. Horn was consulted and came to the department to offer a left heart cath emergently. Ms. Khanna declines intervention, multiple advanced practice providers and Dr. Horn encourage patient to reconsider as her current condition could lead to congestive heart failure, or even sudden cardiac deaths. The patient expresses complete understanding and continues to decline intervention. We discussed DNR versus hospice status. The patient states she understands, declines medications for depression, and was offered Pastoral and Board Handler consult to further discuss hospice. Ms. Khanna states to me that she would like inpatient hospice. Labs: WBC 19.3 with 77.1% neutrophils, H/H 12.4/38 point with 304 platelet CMP with a sodium of 135, creatinine 1.46 with a GFR of 41, blood sugar 216, CRP 182, proBNP 11,942,, troponin 105,077.1 COVID-negative Urine with Briscoe placement extremely turbid, urine leukocyte esterase 500, urine WBCs 20-50, urine bacteria greater than 50, urine reflex to culture Imagin. Bladder wall thickening which may be due to the decompressed state of the bladder or due to cystitis. Correlation with urinalysis recommended. 2. Bibasilar subsegmental atelectasis. 3. Otherwise, allowing for lack of intravenous contrast, no acute abnormality of the chest, abdomen, or pelvis. 4. Chronic and incidental findings as above. Comfort care orders placed and will add targeted treatment therapy should patient change her mind. Home medications list reviewed: Yes (Only takes 70/30) - Past Medical/Surgical History Has patient received pneumonia vaccine in the past: No Diabetic: Yes -: CAD - end stage, declined CABG in 2010, significant NSTEMI evolving today -: ID -: Anemia -: CKD 3 -: DM 1 s/p Bilat BKA -: D&C -: BLE BKA Psychosocial/ Personal History: Patient lives at home with . Patient's had an ID last year and she states he has been in reasonable, and helpful, and "lost it" since. - Family History Family History: Reviewed- Non-Contributory - Social History Smoking Status: Heavy Tobacco smoker (>10 cigarettes/day) Counseled patient to stop smoking for: less than 10 minutes Patient receptive to therapy: No Alcohol use: No CD- Drugs: No Caffeine use: Yes Place of Residence: Home <Mercedes Gillespie - Last Filed: 01/24/24 10:00> Date of Service: 01/24/24 <Baltazar Forrest - Last Filed: 01/24/24 18:15> Allergies No Known Drug Allergies Allergy (Verified 06/28/21 01:03) Unknown Home Medications: Insulin 70/30 NPH/Reg Human [Novolin 70/30*] 30 units SQ DAILY 01/02/12 Review of Systems 10-point ROS is otherwise unremarkable General: Weakness, Malaise Eyes: Unremarkable ENT: Unremarkable Respiratory: Shortness of Breath Cardiovascular: Other (Denies chest pain) Gastrointestinal: Other (Dyspepsia) Genitourinary: Unremarkable Musculoskeletal: Unremarkable Integumentary: Unremarkable Neurological: Unremarkable Lymphatics: Unremarkable Other: Patient sad. States she prays "every day to go home". She brought DNR paperwork with her, and inquires more about hospice <Mercedes Gillespie - Last Filed: 01/24/24 10:00> Physical Examination - Physical Exam General: Alert, Oriented x3, Disheveled HEENT: Atraumatic, Normocephalic Neck: Supple Respiratory: Normal air movement Cardiovascular: No edema, Regular rate/rhythm, Normal S1 S2 Capillary refill: <2 Seconds Gastrointestinal: Normal bowel sounds, Soft and benign Musculoskeletal: No clubbing, Other (Bilateral BKA) Integumentary: No rashes, Other Neurological: Other (Resolved, sad) Lymphatics: No axilla or inguinal lymphadenopathy Urinary: Briscoe catheter External genitalia: Deferred Rectal: Deferred - Studies Laboratory Data (last 24 hrs) 01/24/24 01/24/24 01/24/24 04:43 02:54 02:54 WBC 19.30 H Hgb 12.4 Hct 38.5 Plt Count 304 PT 12.3 INR 1.10 APTT 33.1 Sodium 135 L Potassium 4.1 BUN 28 H Creatinine 1.46 H Glucose 216 H Total Bilirubin 0.5 AST 97 H ALT 26 Alkaline Phosphatase 71 Lipase 10 L Microbiology Data (last 24 hrs): 01/24/24 03:24 Nasopharnyx Influenza Type A Antigen Screen - Final 01/24/24 03:24 Nasopharnyx Influenza Type B Antigen Screen - Final <Mercedes Gillespie - Last Filed: 01/24/24 10:00> - Studies Laboratory Data (last 24 hrs) 01/24/24 01/24/24 01/24/24 04:43 02:54 02:54 WBC 19.30 H Hgb 12.4 Hct 38.5 Plt Count 304 PT 12.3 INR 1.10 APTT 33.1 Sodium 135 L Potassium 4.1 BUN 28 H Creatinine 1.46 H Glucose 216 H Total Bilirubin 0.5 AST 97 H ALT 26 Alkaline Phosphatase 71 Lipase 10 L Microbiology Data (last 24 hrs): 01/24/24 03:24 Nasopharnyx Influenza Type A Antigen Screen - Final 01/24/24 03:24 Nasopharnyx Influenza Type B Antigen Screen - Final <Baltazar Forrest - Last Filed: 01/24/24 18:15> Assessment and Plan - Plan Non-STEMI with significantly elevated troponin Dr. Horn at bedside Patient currently on a heparin drip but she refuses [facility] Patient drinking Coke, not n.p.o., understands risk of congestive failure and sudden cardiac Patient with severe NSTEMI, significant endstage CAD as evidenced by hx of ID, admission in 2021 recommending CABG that patient refused. Symptomatic of indigestion, shortness of breath, and severe malaise and weakness Sepsis with urinary tract infection Observe and monitor for hypotension IV antibiotics Fluids per protocol as chest x-ray clear of overload Patient does not want treatment DNR vs Hospice SW consult for hospice care - GIP vs home hospice Additional orders to be placed for medical treatment if patient changes her mind re: hospice - Advance Directives Does patient have a Living Will: Yes Does patient have a Durable POA for Healthcare: Yes <Mercedes Gillespie - Last Filed: 01/24/24 10:00> - Plan Pt seen and examined. I agree with the note by the COUNTY ENGINEER. Pt is a 59yo female with past medical history of CAD status post ID in 2010, COPD, diabetes, and status post bilateral below the knee amputations who presents in the ER for evaluation of generalized weakness. On admission, pt reports indigestion and SOB for thepast 2 days. Lab studies show wbc 19.2, Hgb 12.4, K 4.1, Cr 1.46 and Troponin 91813 <-105,000. Urinalysis is positive for UTI. Cardiology evaluated pt and recommended left heart cath but pt declined Cardiac catherization despite persuasion by multiple advanced practice providers to reconsider her decision. Pt later decided to pursue hospice care. At bedside, pt is in NAD. A/P: NSTEMI: Pt refused [place] [address] <- 105,000. Will continue heparin drip, aspirin, plavix, statin and coreg. UTI: Continue iv abx and f/u urine cx. KADEN: Cr is 1.46. Will continue IVF, avoid nephrotxins and monitor renal function. Code: DNR. Pt wants hospice care. <Baltazar Forrest - Last Filed: 01/24/24 18:15>
[2024-01-24] MEDS ORDERED: ACETAMINOPHEN 325 MG TABLET ONE (11:34)
[2024-01-24] MEDS: ACETAMINOPHEN 325 MG TABLET PO PRN (11:37)
[2024-01-24] MEDS ORDERED: ALBUTEROL 2.5 MG/3 ML NEB SOL ONE (12:38)
[2024-01-24] MEDS ORDERED: D50W 25 GM/50 ML SYRINGE IV PRN (12:47)
[2024-01-24] MEDS ORDERED: GLUCAGON 1 MG/VIAL IM PRN (12:47)
[2024-01-24] MEDS ORDERED: D10W 125 ML IV PRN (12:55)
[2024-01-24] MEDS: ALBUTEROL 2.5 MG/3 ML NEB SOL NEB SCH (13:10)
[2024-01-24] MEDS: INSULIN 70/30 100 UNITS/ML SQ ONE (13:30)
--- NOTE | 2024-01-24 13:31 | P.CNS ---
Primary Care Provider: None Chief Complaint: NSTEMI, UTI, sepsis History of Present Illness: Patient with PMH of CAD in 2010, DM, bilateral leg amputations, COPD presented with generalized malaise, weakness and fatigue, denies chest pain but report indigestion that happened few days ago, also report SOB, orthopnea and BARCLAY, no palpitations, no syncope. Allergies No Known Drug Allergies Allergy (Verified 06/28/21 01:03) Unknown Home medications list reviewed: Yes Home Medications: Insulin 70/30 NPH/Reg Human [Novolin 70/30*] 30 units SQ DAILY 01/02/12 - Past Medical/Surgical History Diabetic: Yes -: CAD - end stage, declined CABG in 2010, significant NSTEMI evolving today -: HI -: Anemia -: CKD 3 -: DM 1 s/p Bilat BKA -: D&C -: BLE BKA Psychosocial/ Personal History: Patient lives at home with . Patient's had an HI last year and she states he has been in reasonable, and helpful, and "lost it" since. - Social History Smoking Status: Current every day smoker Alcohol use: No CD- Drugs: No Caffeine use: Yes Place of Residence: Home Review of Systems 10-point ROS is otherwise unremarkable Physical Examination General: Alert, In no apparent distress HEENT: Atraumatic, PERRLA, Mucous membr. moist/pink, EOMI, Sclerae nonicteric Neck: Supple, 2+ carotid pulse no bruit, No LAD, Without JVD or thyroid abnorm ality Respiratory: Clear to auscultation bilaterally, Normal air movement Cardiovascular: Regular rate/rhythm, Normal S1 S2 Gastrointestinal: Normal bowel sounds, No tenderness Musculoskeletal: No tenderness Integumentary: No rashes Neurological: Normal gait, Normal speech, Normal tone, Normal affect Lymphatics: No axilla or inguinal lymphadenopathy Laboratory Data (last 24 hrs) 01/24/24 01/24/24 01/24/24 04:43 02:54 02:54 WBC 19.30 H Hgb 12.4 Hct 38.5 Plt Count 304 PT 12.3 INR 1.10 APTT 33.1 Sodium 135 L Potassium 4.1 BUN 28 H Creatinine 1.46 H Glucose 216 H Total Bilirubin 0.5 AST 97 H ALT 26 Alkaline Phosphatase 71 Lipase 10 L - Problems (1) NSTEMI (non-ST elevated myocardial infarction) Current Visit: Yes Status: Acute Plan: Patient troponin is significantly elevated with history of CAD , denied CABG in the past, discussed with patient at bedside the need for urgent coronary angiogram but she refused despite explaining to her risks of sudden cardiac and/or heart failure in future. she optioned medical therapy. - ASA 81 mg daily for life - Plavix 75 mg daily for 12 months - Heparin drip, ACS protocol - Lipitor 80 mg daily - may add Coreg 3.125 mg po BID, if BP improves
[2024-01-24] MEDS: ONDANSETRON 4 MG/2 ML VIAL IV PRN (14:35)
[2024-01-24] MEDS: MORPHINE 4 MG/ML SYR IV PRN (17:06)
[2024-01-24] MEDS ORDERED: INSULIN REGULAR (HUMAN) 100 UNIT/ML ONE (21:11)
[2024-01-24] MEDS: INSULIN REGULAR (HUMAN) 100 UNIT/ML SQ SCH (21:28)
[2024-01-24] MEDS ORDERED: HEPARIN/D5W 25,000 UNIT/500 ML BAG IV SCH (23:00)
[2024-01-25 00:50] VITALS: O2SAT 97
[2024-01-25] MEDS ORDERED: INSULIN REGULAR (HUMAN) 100 UNIT/ML SQ SCH (07:30)
[2024-01-25] MEDS: CEFTRIAXONE 1,000 MG in NA CHLORIDE 0.9% 50 ML IVPB SCH (08:20)
[2024-01-25 08:24] VITALS: TEMP 98.1
[2024-01-25] MEDS: HEPARIN 5000 UNIT/ML 1 ML VIAL IV SCH (09:01)
--- NOTE | 2024-01-25 09:40 | P.DS ---
Admission Date: 01/24/24 Discharge Date: 01/25/24 Primary Care Provider: None Reason for Admission: NSTEMI, UTI, sepsis Consultations: Dr. Horn -patient declined intervention Brief History of Present Illness: Ms. Jessica Khanna is a 59-year-old female with CAD status post PA in 2010, COPD, and diabetes. She is status post bilateral below the knee amputations. She takes 70/30 insulin 30 units every morning but does not see a PCP to manage her health and she takes no other medicines. She states she lives at home with her who is unable to help much. She has a motorized wheelchair but no home health or help at home. She states all of her loved ones during COVID and she prays every day that she can go home. She has a DNR at bedside. She states she presented to the emergency department because her insisted on calling EMS as she had been so weak over the last 2 days that she was unable to sit on her own. On assessment in the emergency department she does admit to some indigestion and shortness of breath over the last couple of days. Her workup reveals a non-STEMI with a troponin greater than 105,000, sepsis with an elevated white count, and a urinary tract infection. Dr. Horn was consulted and came to the department to offer a left heart cath emergently. Ms. Khanna declines intervention, multiple advanced practice providers and Dr. Horn encourage patient to reconsider as her current c ondition could lead to congestive heart failure, or even sudden cardiac deaths. The patient expresses complete understanding and continues to decline intervention. We discussed DNR versus hospice status. The patient states she understands, declines medications for depression, and was offered Pastoral and Windlace Machine Operator consult to further discuss hospice. Ms. Khanna states to me that she would like inpatient hospice. Labs: WBC 19.3 with 77.1% neutrophils, H/H 12.4/38 point with 304 platelet CMP with a sodium of 135, creatinine 1.46 with a GFR of 41, blood sugar 216, CRP 182, proBNP 11,942,, troponin 105,077.1 COVID-negative Urine with Briscoe placement extremely turbid, urine leukocyte esterase 500, urine WBCs 20-50, urine bacteria greater than 50, urine reflex to culture Imagin. Bladder wall thickening which may be due to the decompressed state of the bladder or due to cystitis. Correlation with urinalysis recommended. 2. Bibasilar subsegmental atelectasis. 3. Otherwise, allowing for lack of intravenous contrast, no acute abnormality of the chest, abdomen, or pelvis. 4. Chronic and incidental findings as above. Comfort care orders placed and will add targeted treatment therapy should patient change her mind. Hospital Course: Ms. Khanna continues to decline intervention. Reassessed today on plan for hospice. Patient states she has not changed her mind and she would like to be discharged on hospice. [facility] to be set up Saturday. Will discharge home with Briscoe, on fentanyl patch, with p.o. antibiotics as patient fears UTI may be painful, per EMS. <Mercedes Gillespie - Last Filed: 01/25/24 09:36> Admission Date: 01/24/24 Discharge Date: 01/25/24 Hospital Course: Pt seen and examined. I agree with the note by the FARM EQUIPMENT ENGINE MECHANIC. Pt is declined cardiac cath. She agreed to hospice care. [facility] is set up to see her on Saturday. Ok to discharge pt. <Baltazar Forrest - Last Filed: 01/25/24 11:01> Disposition: HOSPICE-HOME Discharge Condition: FAIR Vital Signs/Physical Exam: Temp Pulse Resp BP Pulse Ox 98.1 F 95 H 12 144/68 H 90 L 01/25/24 08:00 01/25/24 08:00 01/25/24 08:00 01/25/24 08:00 01/25/24 08:00 General: Alert, Oriented x3, Other (Week) HEENT: Atraumatic, Normocephalic Neck: Supple Respiratory: Normal air movement Cardiovascular: No edema, Regular rate/rhythm Capillary refill: <2 Seconds Gastrointestinal: Soft and benign Musculoskeletal: Other (Status post bilateral BKA) Integumentary: No rashes, Other ([place]) Neurological: Normal speech, Normal affect, Abnormal strength, Abnormal tone Lymphatics: No axilla or inguinal lymphadenopathy Urinary: Briscoe catheter External genitalia: Deferred Rectal: Deferred Laboratory Data at Discharge: WBC 19.30 thou/uL (4.3-10.9) H 01/24/24 02:54 Hgb 12.4 g/dL (12.0-15.0) 01/24/24 02:54 Hct 38.5 % (36.0-45.0) 01/24/24 02:54 Plt Count 304 thou/uL (152-406) 01/24/24 02:54 PT 12.3 SECONDS (9.4-12.5) 01/24/24 04:43 INR 1.10 01/24/24 04:43 APTT 32.9 SECONDS (24.3-36.9) 01/25/24 07:59 Sodium 135 mEq/L (136-145) L 01/24/24 02:54 Potassium 4.1 mEq/L (3.5-5.1) 01/24/24 02:54 BUN 28 mg/dL (7-18) H 01/24/24 02:54 Creatinine 1.46 mg/dL (0.55-1.02) H 01/24/24 02:54 Glucose 659 mg/dL (74-106) H* 01/24/24 20:05 Total Bilirubin 0.5 mg/dL (0.2-1.0) 01/24/24 02:54 AST 97 U/L (15-37) H 01/24/24 02:54 ALT 26 U/L (13-56) 01/24/24 02:54 Alkaline Phosphatase 71 U/L (45-117) 01/24/24 02:54 Lipase 10 U/L (13-75) L 01/24/24 02:54 <Gillespie,Mercedes Matthew - Last Filed: 01/25/24 09:36> Vital Signs/Physical Exam: Temp Pulse Resp BP Pulse Ox 98.1 F 95 H 12 144/68 H 90 L 01/25/24 08:00 01/25/24 08:00 01/25/24 08:00 01/25/24 08:00 01/25/24 08:00 Laboratory Data at Discharge: WBC 19.30 thou/uL (4.3-10.9) H 01/24/24 02:54 Hgb 12.4 g/dL (12.0-15.0) 01/24/24 02:54 Hct 38.5 % (36.0-45.0) 01/24/24 02:54 Plt Count 304 thou/uL (152-406) 01/24/24 02:54 PT 12.3 SECONDS (9.4-12.5) 01/24/24 04:43 INR 1.10 01/24/24 04:43 APTT 32.9 SECONDS (24.3-36.9) 01/25/24 07:59 Sodium 135 mEq/L (136-145) L 01/24/24 02:54 Potassium 4.1 mEq/L (3.5-5.1) 01/24/24 02:54 BUN 28 mg/dL (7-18) H 01/24/24 02:54 Creatinine 1.46 mg/dL (0.55-1.02) H 01/24/24 02:54 Glucose 659 mg/dL (74-106) H* 01/24/24 20:05 Total Bilirubin 0.5 mg/dL (0.2-1.0) 01/24/24 02:54 AST 97 U/L (15-37) H 01/24/24 02:54 ALT 26 U/L (13-56) 01/24/24 02:54 Alkaline Phosphatase 71 U/L (45-117) 01/24/24 02:54 Lipase 10 U/L (13-75) L 01/24/24 02:54 <Baltazar Forrest - Last Filed: 01/25/24 11:01> Diet: Regular Activity: Ad rose <Mercedes Gillespie - Last Filed: 01/25/24 09:36> <Baltazar Forrest - Last Filed: 01/25/24 11:01> Home Medications: Insulin 70/30 NPH/Reg Human [Novolin 70/30*] 30 units SQ DAILY 01/02/12 Cefdinir [Omnicef] 600 mg PO DAILY #7 01/25/24 New Medications: Cefdinir [Omnicef] 600 mg PO DAILY #7 Physician Discharge Instructions: Hospice company to come to patient's home on Saturday. Will discharge home with fentanyl patch, Briscoe for comfort/palliation, will discharge with prescription for p.o. antibiotics for current urinary tract infection. Php Software Engineer services offered. Followup: NONE,NONE [Primary Care Provider] -
[2024-01-25] MEDS: FENTANYL 50 MCG/PATCH TD ONE (10:23)
[2024-01-25 11:53] VITALS: BP 128/62
--- NOTE | 2024-01-27 10:26 | EKG ---
Test Date: 2024-01-24 Test Time: 04:02:23 Manager Retail: HATTIE MEASUREMENT RESULTS: Intervals: Rate: 93 NE: 128 QRSD: 90 QT: 380 QTc: 472 [place]: P: 64 NE: 128 QRS: -14 T: 95 INTERPRETIVE STATEMENTS: Normal sinus rhythm Low voltage QRS Septal infarct, age undetermined Abnormal ECG Compared to ECG 01/24/2024 03:21:19 Low QRS voltage now present Myocardial infarct finding still present Electronically Signed On 01-27-24 10:22:50 CDT by Agustin Horn
--- NOTE | 2024-01-27 10:26 | EKG ---
Test Date: 2024-01-24 Test Time: 03:21:19 Machine Inker: HATTIE MEASUREMENT RESULTS: Intervals: Rate: 87 MO: 124 QRSD: 92 QT: 388 QTc: 466 [place]: P: 66 MO: 124 QRS: -15 T: 86 INTERPRETIVE STATEMENTS: Normal sinus rhythm Septal infarct, age undetermined Abnormal ECG Compared to ECG 05/19/2014 02:48:07 No significant changes Electronically Signed On 01-27-24 10:22:51 CDT by Agustin Horn
--- NOTE | 2024-01-29 13:07 | EKG ---
Test Date: 2024-01-24 Test Time: 06:41:08 [employer] Medic: HATTIE MEASUREMENT RESULTS: Intervals: Rate: 84 ND: 126 QRSD: 88 QT: 408 QTc: 482 [place]: P: 69 ND: 126 QRS: -17 T: 84 INTERPRETIVE STATEMENTS: Normal sinus rhythm Septal infarct, age undetermined Abnormal ECG Compared to ECG 01/24/2024 04:02:23 No significant changes Electronically Signed On 01-29-24 12:59:11 CDT by Agustin Horn
== END 2024-01-25 12:12 | disposition hospice, home (50) | DRG 871 ==
LOC: ER 02:36 → ERHOLD 08:50 → 2ND 13:06
PROVIDERS: ADMIT Hospitalist; ATTEND Hospitalist
PROC: 0T9B70Z Drainage of Bladder with Drainage Device, Via Natural or Artificial Opening (ICD-10-PCS; principal; 2024-01-24)
DX: A41.9 Sepsis, unspecified organism (principal); I21.4 Non-ST elevation (NSTEMI) myocardial infarction; N10 Acute pyelonephritis; N17.9 Acute kidney failure, unspecified; N18.30 Chronic kidney disease, stage 3 unspecified; E10.22 Type 1 diabetes mellitus with diabetic chronic kidney disease; J44.9 Chronic obstructive pulmonary disease, unspecified; I25.10 Atherosclerotic heart disease of native coronary artery without angina pectoris; I25.2 Old myocardial infarction; F17.210 Nicotine dependence, cigarettes, uncomplicated; Z66 Do not resuscitate; Z79.4 Long term (current) use of insulin; Z11.52 Encounter for screening for COVID-19; Z95.1 Presence of aortocoronary bypass graft; Z89.512 Acquired absence of left leg below knee; Z89.511 Acquired absence of right leg below knee
CPT/HCPCS: 36415; 51702; 71045; 71250; 74176; 80053; 81001; 82947; 83605; 83690; 83880; 84439; 84443; 84484; 85025; 85610; 85730; 86140; 87040; 87077; 87086; 87088; 87186; 87804; 87811; 93005; 94640; 99285; J0696; J1644; J1815; J2405; J7030; J7050; J7613